=== PATIENT | male | born 1945 | race Caucasian/White ===

== ENCOUNTER 2016-09-03 13:25 | Emergency (ER) | payer MEDICARE, OTHER ==
[~2016-09-03 13:25] MED LIST: ACET325C PO; BISA10SU61 RC; CHLO25CA10 PO; CLIN-78 PO; DILT180C66 PO; DOCU-41 PO; FAMO20T PO; FENTANYL 12 MCG/HR TRANSDERM; FOLI1TAB18 PO; HYDR-4003 PO; HYDR-656 PO; MAGN400O4 PO; MULT-666 PO; NICO1PAT5 TOPICAL; ONDA-53 PO; ONDA4TAB9 PO; OXYC20TA55 PO; OXYC5CAP4 PO; PHN100C PO; THIA100T64 PO; VANC1PLA9 IV; WARF2.5T82 PO
[2016-09-03 13:40] VITALS: BP 133/95; PULSE 101; RESP 18; O2SAT 99
--- NOTE | 2016-09-03 13:57 | ED.REPORT ---
HPI-Extremity Problem Lower Date of Service Sep 03, 2016 ED Provider: Hang Martinez MD A 70 year old male with a medical history including chronic back pain, COPD, epilepsy, atrial fibrillation on Warfarin, hypertension, and left femoral fracture s/p left hip hemiarthroplasty presents to the ED with left hip pain onset two days ago after a mechanical ground level fall. The patient has ambulated with pain since then but was unable to bear weight today. He denies hitting his head or losing consciousness. En route the patient had stable vital signs and was given 4x Zofran, 5mg Versed, and 100mcg Fentanyl. The patient was in the ED on 08/14/16 with similar symptoms. Nursing Notes Stated Complaint: LEFT HIP PAIN Chief Complaint: Extremity Trauma Nursing Notes Reviewed: Yes Allergies: Coded Allergies: atenolol (Verified Allergy, Unknown, 09/03/16) methadone (Verified Allergy, Unknown, TAKES OXYCODONE/HYDROCODONE/FENTANYL , 09/03/16) aspirin (Verified Adverse Reaction, Unknown, GI, 09/03/16) codeine (Verified Adverse Reaction, Unknown, GI, 09/03/16) Uncoded Allergies: ANTI-INFLAMMATORY AGENTS OPH/OTIC (Allergy, Unknown, 08/21/04) Scheduled ([fentanyl 12mcg/hr]) 1 PATCH TRANSDERM q72 hours Clindamycin (Clindamycin) 300 Mg Capsule 300 MG PO QID Diltiazem ER (Cardizem CD) 180 Mg Cap.er.24h 180 MG PO DAILY Famotidine (Pepcid) 20 Mg Tablet 20 MG PO BID Folic Acid (Folic Acid) 1 Mg Tablet 1 MG PO DAILY Morphine Sulfate ER (MS Contin) 30 Mg Tablet.er 30 MG PO BID Multivitamin (Once Daily) 1 Each Tablet 1 EACH PO DAILY Nicotine 14 mg/24 hr Patch (Nicotine 14 mg/24 hr Patch) 1 Each Patch.td24 1 PATCH TOPICAL Q24H Oxycodone ER (Oxycontin) 20 Mg Tab.er.12h 20 MG PO BID Phenytoin Sodium ER (Dilantin) 100 Mg Capsule 100 MG PO AM Phenytoin Sodium ER (Dilantin) 100 Mg Capsule 300 MG PO HS Thiamine Mononitrate (Vitamin B-1) 100 Mg Tablet 100 MG PO DAILY Vancomycin/0.9 % Sod Chloride (Vanco 1 Gram/250 ml-0.9% NaCl) 1 Gram/250 Ml Plast..bag 1 GM IV BID Warfarin Sodium (Warfarin Sodium) 2.5 Mg Tablet 2.5 MG PO DAILY Scheduled PRN Acetaminophen (Acetaminophen) 325 Mg Capsule 650 MG PO q4 hours PRN PRN For Pain Bisacodyl (Dulcolax Rectal) 10 Mg Supp.rect 10 MG RC DAILY PRN PRN For Constipation Chlordiazepoxide (Chlordiazepoxide) 25 Mg Capsule 25 MG PO Q6H PRN PRN For Anxiety Docusate Sodium (Colace) 100 Mg Capsule 100 MG PO DAILY PRN PRN For Constipation Hydrocodone-Acetaminophen 5-325 mg (Hydrocodone-Acetaminophen 5-325 mg) 1 Each Tablet 1 TABLET PO Q4H PRN PRN For Pain Magnesium Hydroxide (Milk of Magnesia) 400 Mg/5 Ml Oral.susp 400 MG PO DAILY PRN PRN For Constipation Ondansetron (Ondansetron) 4 Mg Tablet 4 MG PO q8 hours PRN PRN For Nausea Ondansetron ODT (Zofran ODT) 4 Mg Tablet 4 MG PO Q4H PRN PRN For Nausea hydrOXYzine Hcl (HydrOXYzine Hcl) 25 Mg Tablet 25 MG PO q4 hours PRN PRN For Spasm oxyCODONE (oxyCODONE) 5 Mg Capsule 5-10 MG PO q3 hours PRN PRN For Pain General Time Seen by MD: 13:56 Chief Complaint Hip injury left Hx Obtained From: Patient Arrived By: Ambulance Onset Occurred: 2 days ago Symptom Duration: Since onset Caused by: Fall on ground Context: Occurred at: Home injury Location: : Hip left Severity: Current: Moderate Severity: Maximum: Moderate Associated with: Reports: Unable to bear weight, Denies: Fever Pertinent Negative: Relieved by nothing Immunizations: Unknown Recent Healthcare: No recent doctor visit Similar Sx Previous: Yes Past Medical History Past Medical History Bowel obstruction Chronic back pain Pancreatitis Epilepsy Diverticulitis Gastroesphageal Reflux Heartburn AFib on Warfarin Hypertension Displaced angulated left femoral neck fracture Reports: COPD Past Surgical History Whipple Surgery Left hip hemiarthroplasty on April 24, 2016 Reports: Appendectomy, Cholecystectomy Reports: Back/neck surgery Smoking History Current Every Day Smoker Social History Alcohol Use: >5 per day Other Social History: Good social support, , Local resident Ambulatory Status Independent Review of Systems Constitutional: Denies: Fever Musculoskeletal: Reports: Joint pain (Left hip) Neurologic: Denies: Change LOC, Headache Complete sys rev & neg: except as marked. Respiratory: Denies: Shortness of breath Cardiovascular: Denies: Chest pain GI: Denies: Abdominal pain, Vomiting Physical Exam Initial Vital Signs Vital Signs (First) Date Time Temp Pulse Resp B/P Pulse Ox O2 Delivery O2 Flow Rate FiO2 09/03/16 13:40 36.6 101 18 133/95 99 Room Air Initial VS: Reviewed Head / Eyes: Atraumatic, Normocephalic ENT: Conjunctiva normal, No scleral icterus Neck: Supple, Full range of motion Skin: Warm, Dry, No cyanosis Neurologic: Alert, Oriented, Nonfocal Psychiatric: Mood/affect normal, Behavior normal, Normal thought content Lower Extremity / Pelvis / MS: Neurologic intact, Vascular intact Right Hip: Positive: Swelling present... (Over greater trochanter laterally), Tenderness present... (Over greater trochanter) Pain with external and internal rotation of left leg Ankle / Foot: Neurologic intact, Vascular intact General/Constitutional: Awake, Alert, No acute distress Interpretation & Diagnostics CT HIP LEFT W/O CONTRAST: IMPRESSION: 1. Extension of the distal prosthetic femoral component through the posterior cortex of the femoral shaft with associated extrusion of bone cement. Findings appear nonacute. 2. Soft tissue swelling associated with the cement within the left vastus lateralis may represent hematoma or associated inflammatory reaction. Dictated by: Poli Dennis M.D. on 09/03/2016 at 15:53 Lab Results Interpretation Result Diagram: 09/03/16 1623 09/03/16 1623 Test 09/03/16 16:23 09/03/16 16:40 White Blood Count 10.1th/mm3 (3.8-10.1) Red Blood Count 3.72mil/mm3 (4.40-5.80) Hemoglobin 9.7g/dL (13.8-17.2) Hematocrit 30.0% (41.0-50.0) Mean Corpuscular Volume 80.6fL (81-100) Mean Corpuscular Hemoglobin 26.1pg (27.0-35.0) Mean Corpuscular Hemoglobin Concent 32.3% (32.0-37.0) Red Cell Distribution Width 19.4% (12.3-15.4) Platelet Count 401bil/L (150-400) Neutrophils (%) (Auto) 72.0% (40-74) Lymphocytes (%) (Auto) 17.3% (14-46) Monocytes (%) (Auto) 9.8% (4-12) Eosinophils (%) (Auto) 0.3% (0-5) Basophils (%) (Auto) 0.2% (0-3) Sodium Level 134mEq/L (134-144) Potassium Level 3.5mEq/L (3.5-5.2) Chloride Level 97mEq/L (97-108) Carbon Dioxide Level 20mmol/L (18-29) Blood Urea Nitrogen 7mg/dL (8-27) Creatinine 0.42mg/dL (0.76-1.27) Estimat Glomerular Filtration Rate 214mL/min (>59) Glucose Level 106mg/dL (60-99) Calcium Level 8.2mg/dL (8.5-10.1) Total Bilirubin 0.7mg/dL (0.0-1.2) Aspartate Amino Transf (AST/SGOT) 17U/L (0-50) Alanine Aminotransferase (ALT/SGPT) 7U/L (0-44) Alkaline Phosphatase 174U/L (25-160) Total Protein 5.8g/dL (6.4-8.4) Albumin 3.2g/dL (3.4-5.0) Prothrombin Time 65.0sec (8.1-12.5) Prothromb Time International Ratio 5.86ratio X-Ray Interpretation Xray Interpretation: IMPRESSION: 1. No definite fracture or subluxation. Dictated by: Poli Dennis M.D. on 09/03/2016 at 15:05 Study Performed: Pelvis with Lateral Left Hip Interpretation / Wet Read by: Interpret - Radiologist Re-Eval/Medical Decision Med Decision/Clinical Course Despite thorough evaluation no fracture or acute injury to the left hip is identified. I am suspicious that given his slightly supratherapeutic INR and recent trauma that he has a deep muscle hematoma. I do not believe we have enough here to justify hospitalization. He has a follow-up appointment set with his orthopedist next already. He requests morphine as the oral pain medication which I have provided. MS Contin 30 mg twice a day #12 tablets. Source of Hx: Old records Re-Evaluation/Progress #1: Time of Eval: 15:13 Patient Status: Condition improved Re-Evaluation/Progress Note: Discussed with patient x-ray results and plan for CT. Re-Evaluation/Progress #2: Time of Eval: 16:22 Patient Status: Condition improved Re-Evaluation/Progress Note: Discussed with patient CT results and plan for labs. His reports concerns about taking care of him at home if he is unable to ambulate. Re-Evaluation/Progress #3: Time of Eval: 17:27 Patient Status: Condition improved Re-Evaluation/Progress Note: Discussed with patient and his diagnosis and plan for discharge. Follow-up and return to the ER instructions given. Patient agrees with plan for care and all questions were addressed. Consultation : Referral / Consult Name: RocioDagoberto DO Consulted With: Orthopedic Call Returned at: 16:20 Senior Military Analyst: Agrees with eval, Agrees with plan Note: Recommends watchful waiting. Counseled Regarding: Diagnosis, Need for follow-up, When/why to return to ED Discharge & Departure Impression: Primary Impression: Contusion of left hip Encounter type: initial encounter Qualified Code: S70.02XA - Contusion of left hip, initial encounter Additional Impression: Supratherapeutic INR Disposition: Home Discharge Condition All VS Reviewed: Yes Condition: Stable Patient Instructions: Contusions in Adults (ED) Additional Instructions: No obvious new acute injury on the CT or x-ray. I believe that you do have a deep muscle bruise and hematoma. Your warfarin level is a little bit too high so do not take any warfarin/Coumadin today tomorrow or Tuesday and resume taking it on Tuesday. Take pain medicine prescribed twice daily until you see the orthopedist on . Follow-up right away for new or worsening symptoms. Referrals: NOPCP (PCP) Inder Garzon Attestation Portions of this note were transcribed by Nargis Mcfarlane. I, Dr. Martinez, personally performed the history, physical exam, and medical decision-making; I reviewed and confirmed the accuracy of the information in the transcribed note. Signed by: Yolanda Milton, 09/03/2016, 17:33 copies to: Inder Garzon Kirk H MD Sep 03, 2016 13:57 NARGIS MCFARLANE Sep 03, 2016 14:03
[2016-09-03] MEDS ORDERED: Ondansetron 2 mg/mL 2 mL Inj IVPUSH PRN (14:10)
[2016-09-03] MEDS ORDERED: HYDROmorphone 1 mg/mL Inj IVPUSH PRN (14:10)
--- NOTE | 2016-09-03 15:06 | DRSVH ---
PROCEDURE: X-RAY PELVIS W/LAT HIP (LT) ([id number]) INDICATIONS: trauma TECHNIQUE: AP pelvis with lateral view of the left hip. COMPARISON: [facility], CR, XR HIP 2VW LT, 08/09/2016, 10:43. [facility], CR, XR PELVIS W LATERAL HIP LT, 07/02/2016, 9:45. FINDINGS: Bones: No definite fracture or dislocation. There is a left total hip prosthesis redemonstrated. N o change in alignment. No new periprosthetic lucencies. There is moderate joint space narrowing med ially in the right hip with subchondral sclerosis. Pelvic ring appears intact. No suspicious bony l esions. Soft tissues: The visualized bowel gas pattern is normal. There are scattered vascular calcificatio ns. IMPRESSION: 1. No definite fracture or subluxation. Dictated by: Poli Dennis M.D. on 09/03/2016 at 15:05 Approved by: Poli Dennis M.D. on 09/03/2016 at 15:05
--- NOTE | 2016-09-03 15:55 | DRSVH ---
PROCEDURE: CT HIP LEFT W/O CONTRAST (94055) INDICATIONS: trauma TECHNIQUE: Noncontrast 3 mm axial sections acquired through the bony pelvis. Additional 3 mm axial sections acq uired through the symptomatic hip joint, with coronal and sagittal reformats. COMPARISON: [facility], CR, XR PELVIS W LATERAL HIP LT, 06/14/2016, 22:55. [facility], CR, XR PELVIS W LATERAL HIP LT, 07/02/2016, 9:45. [facility], CR, XR HIP 2 VW LT, 08/09/2016, 10:43. [facility], CR, XR PELVIS W LATERAL HIP LT, 09/03/2016, 14:37. FINDINGS: Image quality: There is extensive streak artifact associated with patient's left hip prosthesis. Bones: A left total hip prosthesis is redemonstrated. The distal femoral component extends posterior ly through the posterior cortex of the femoral shaft with associated extrusion of bone cement into th e adjacent soft tissue. Elsewhere, no acute fractures or dislocation. A corticated chronic fracture of the left greater trochanter is redemonstrated. The bony pelvis appears intact. There is osteope abdiel. Soft tissues: There is soft tissue swelling associated with the extruded cement within the left vastu s lateralis muscle. Findings may represent an associated hematoma or inflammatory reaction. There i s no free fluid within the visualized bony pelvis. Visualized loops of bowel are normal in caliber. The bladder demonstrates normal wall thickness. IMPRESSION: 1. Extension of the distal prosthetic femoral component through the posterior cortex of the femoral shaft with associated extrusion of bone cement. Findings appear nonacute. 2. Soft tissue swelling associated with the cement within the left vastus lateralis may represent he matoma or associated inflammatory reaction. Dictated by: Poli Dennis M.D. on 09/03/2016 at 15:53 Approved by: Poli Dennis M.D. on 09/03/2016 at 15:53
[2016-09-03 16:37] LABS: BASOPHILS % (AUTO) 0.2 % (0-3); EOSINOPHILS % (AUTO) 0.3 % (0-5); MONOCYTES % (AUTO) 9.8 % (4-12); Mean Corpuscular Hemoglobin 26.1 pg (27.0-35.0); Mean Corpuscular Volume 80.6 fL (81-100); Platelet Count 401 bil/L (150-400)
[2016-09-03 17:23] LABS: INR 5.86 ratio
[2016-09-03] MEDS ORDERED: MS30TCR PO (17:31)
[2016-09-03 18:06] VITALS: BP 140/68; PULSE 103; RESP 18; O2SAT 97
== END 2016-09-03 18:07 | disposition home or self-care (01) ==
LOC: SED 13:25 → EDUNIT# 13:25 → EDBD 13:25 → SED 18:07
DX: S70.02XA Contusion of left hip, initial encounter (principal); W18.30XA Fall on same level, unspecified, initial encounter; Y92.009 Unspecified place in unspecified non-institutional (private) residence as the place of occurrence of the external cause; Y93.89 Activity, other specified; Y99.8 Other external cause status; R79.1 Abnormal coagulation profile; M54.9 Dorsalgia, unspecified; G89.29 Other chronic pain; J44.9 Chronic obstructive pulmonary disease, unspecified; G40.909 Epilepsy, unspecified, not intractable, without status epilepticus; I48.91 Unspecified atrial fibrillation; I10 Essential (primary) hypertension; K21.9 Gastro-esophageal reflux disease without esophagitis; F17.200 Nicotine dependence, unspecified, uncomplicated; Z79.01 Long term (current) use of anticoagulants; Z87.828 Personal history of other (healed) physical injury and trauma; Z96.642 Presence of left artificial hip joint; Z88.8 Allergy status to other drugs, medicaments and biological substances; Z88.5 Allergy status to narcotic agent; Z88.6 Allergy status to analgesic agent
CPT/HCPCS: 36415; 73501; 73700; 80053; 85025; 85610; 96374; 96375; 99285; J1170; J2405

== ENCOUNTER 2016-11-11 18:07 | Inpatient (IN) | payer MEDICARE, OTHER ==
[~2016-11-11] VITALS: Ht 175.3 cm; Wt 91.8 kg
[~2016-11-11 18:07] MED LIST changes: +MS30TCR PO
[2016-11-11 18:12] VITALS: BP 143/102; PULSE 87; RESP 24; O2SAT 99
--- NOTE | 2016-11-11 18:13 | ED.REPORT ---
HPI-General Illness Date of Service Nov 11, 2016 ED Provider: Shae Robledo MD A 70 year old male with a history of pancreatitis, A-fib, COPD, chronic anemia, epilepsy, diverticulitis and hypertension presents to the ED via EMS seeking detox from EtOH. He reports drinking heavily for the past 5 years. Ex- reports that he is drunk every morning and drinks through the day. Associated symptoms include bladder and bowel incontinence, intermittent vomiting, headache , visual hallucinations of "blue stars", auditory hallucinations and tactile hallucinations of "bugs crawling over him". He has been taking Ondansetron for the past 4 months for his nausea. Today, the patient drank 2 [employer] Hard and one 24 oz. Patient was sober for the past 33 years and reportedly started drinking 2 years after his second . Patient recently stopped taking Warfarin. Patient was seen in the ED on 09/03 after a GLF and was discharged in good condition with a hip contusion. Nursing Notes Stated Complaint: SOB, DETOXING FROM ALCOHOL Chief Complaint: Substance Abuse Nursing Notes Reviewed: Yes Allergies: Coded Allergies: atenolol (Verified Allergy, Unknown, 11/11/16) methadone (Verified Allergy, Unknown, TAKES OXYCODONE/HYDROCODONE/FENTANYL , 11/11/16) aspirin (Verified Adverse Reaction, Unknown, GI, 11/11/16) codeine (Verified Adverse Reaction, Unknown, GI, 11/11/16) Uncoded Allergies: ANTI-INFLAMMATORY AGENTS OPH/OTIC (Allergy, Unknown, 08/21/04) Scheduled Diltiazem ER (Cardizem CD) 180 Mg Cap.er.24h 180 MG PO DAILY Famotidine (Pepcid) 20 Mg Tablet 20 MG PO BID Folic Acid (Folic Acid) 1 Mg Tablet 1 MG PO DAILY Multivitamin (Once Daily) 1 Each Tablet 1 EACH PO DAILY Nicotine 21 mg/24 hr Patch (Nicotine 21 mg/24 hr Patch) 1 Each Patch.dysq 1 PATCH TRANSDERM DAILY Phenytoin Sodium ER (Dilantin) 100 Mg Capsule 100 MG PO AM Phenytoin Sodium ER (Dilantin) 100 Mg Capsule 300 MG PO HS Thiamine Mononitrate (Vitamin B-1) 100 Mg Tablet 100 MG PO DAILY Scheduled PRN Acetaminophen (Acetaminophen) 325 Mg Capsule 650 MG PO q4 hours PRN PRN For Pain Albuterol HFA (Proair HFA) 8.5 Gm Hfa.aer.ad 2 PUFFS INHALATION Q4H PRN PRN For Shortness of Breath Bisacodyl (Dulcolax Rectal) 10 Mg Supp.rect 10 MG RC DAILY PRN PRN For Constipation Docusate Sodium (Colace) 100 Mg Capsule 100 MG PO DAILY PRN PRN For Constipation Ibuprofen (Ibuprofen) 600 Mg Tablet 600 MG PO BID PRN PRN For Pain Magnesium Hydroxide (Milk of Magnesia) 400 Mg/5 Ml Oral.susp 400 MG PO DAILY PRN PRN For Constipation Ondansetron ODT (Zofran ODT) 4 Mg Tablet 4 MG PO Q4H PRN PRN For Nausea General Time Seen by MD: 17:58 Chief Complaint Other (Substance Abuse) Hx Obtained From: Patient, Spouse (Ex-) Arrived By: Ambulance Sudden in Onset?: No Onset Occurred: Onset unknown Context of Onset: EtOH use Symptom Duration: Since onset Additional Notes: Visual, auditory and tactile hallucinations Incontinence Pertinent Negative: Pt denies other symptoms Recent Healthcare: No recent hospitalization, Recent doctor visit Past Medical History Past Medical History Bowel obstruction Chronic back pain Pancreatitis Epilepsy Diverticulitis Gastroesphageal Reflux Heartburn AFib on Warfarin Hypertension Displaced angulated left femoral neck fracture Reports: COPD Past Surgical History Whipple Surgery Left hip hemiarthroplasty on April 24, 2016 Reports: Appendectomy, Cholecystectomy Reports: Back/neck surgery Smoking History Current Every Day Smoker (2 packs per day) Social History Alcohol Use: >5 per day Other Social History: Good social support, , Local resident Ambulatory Status Independent Review of Systems Full Review of Systems Constitutional: Denies: Fever Respiratory: Denies: Shortness of breath Cardiovascular: Denies: Chest pain GI: Reports: Vomiting, Denies: Abdominal pain Male: Reports Incontinence Neurologic: Reports: Headache, Denies: Change LOC Psychiatric: Reports: Hallucinations, auditory, Hallucinations, visual, Stress ( 7 years ago) Complete sys rev & neg: except as marked. Physical Exam Vital Signs Vital Signs Date Time Temp Pulse Resp B/P Pulse Ox O2 Delivery O2 Flow Rate FiO2 11/11/16 18:39 86 18 149/116 98 Room Air 11/11/16 18:12 37.0 87 24 143/102 99 Room Air Initial VS: Reviewed Neck: Supple, Non-tender, Full range of motion General/Constitutional: Awake, Alert Appearance / Presentation: Positive: Intoxicated GENERAL: CWAL score = 38 Disheveled appearance Head / Eyes: Atraumatic, Normocephalic Respiratory / Chest: Atraumatic, Breath sounds NL, Breath sounds = bilat, No respiratory distress Cardiovascular: Heart rate NL, Heart sounds NL, No murmurs Heart Rate / Rhythm: Positive: Irreg irregular rhythm Lower Ext Edema: Positive: Bilateral 2+ CARDIO: Clubbing fingers Abdomen: Atraumatic, Soft, BS normoactive Organomegaly / Mass / Hernia: Positive: Hepatomegaly Color / Condition: Positive: Erythema localized (Carroll erythema ) SKIN: spider hemangiomas Speech: Positive: Slurred NERUO: CWAL score 38 Interpretation & Diagnostics Lab Results Interpretation Result Diagram: 11/11/16 1808 Test 11/11/16 18:08 11/11/16 19:41 White Blood Count 8.5th/mm3 (3.8-10.1) Red Blood Count 3.73mil/mm3 (4.40-5.80) Hemoglobin 9.9g/dL (13.8-17.2) Hematocrit 31.1% (41.0-50.0) Mean Corpuscular Volume 83.4fL (81-100) Mean Corpuscular Hemoglobin 26.5pg (27.0-35.0) Mean Corpuscular Hemoglobin Concent 31.8% (32.0-37.0) Red Cell Distribution Width 16.0% (12.3-15.4) Platelet Count 158bil/L (150-400) Neutrophils (%) (Auto) 61.8% (40-74) Lymphocytes (%) (Auto) 30.0% (14-46) Monocytes (%) (Auto) 6.8% (4-12) Eosinophils (%) (Auto) 0.8% (0-5) Basophils (%) (Auto) 0.5% (0-3) Hold Purple Top Tube Received (Received) Prothrombin Time 10.0sec (8.1-12.5) Prothromb Time International Ratio 0.94ratio Activated Partial Thromboplast Time 27.1sec (22.8-33.0) Hold Blue Top Tube Received (Received) Phosphorus Level 2.8mg/dL (2.5-4.9) Magnesium Level 1.9mg/dL (1.6-2.6) Hold Red Top Tube Received (Received) Hold [place] Top Tube Received (Received) Alcohols 171mg/dL (0-10) Hold Urine Received (Received) ECG Interpretation ECG Interpretation: Sinus Rhythm Rate 79 No ischemia Time: 19:03 Interpreted by: ED physician Normal ECG Interpretation: No change from prior ECGs (06/14/16) Re-Eval/Medical Decision Time of Eval: 20:36 Patient Status: Condition improved Re-Evaluation/Progress Note: Patient is rechecked. He is informed of his lab results and diagnosis. All of the patient's questions are adressed. He understands and agrees with the treatment plan to admit. Consultation : Referral / Consult Name: Roque Rico MD Consulted With: Hospitalist Call Returned at: 20:36 [employer]: Will see patient, Agrees with eval, Agrees with plan, Accepts admit Counseled Regarding: Diagnosis, Lab results, Need for admission Discharge & Departure Primary Impression: Delirium tremens Disposition: ADMITTED TO HOSPITAL Discharge Condition All VS Reviewed: Yes Condition: Stable Referrals: NOPCP (PCP) HELEN MAC Attestation Portions of this note were transcribed by Janell Lora. I, Dr. Robledo personally performed the history, physical exam and medical decision-making; I reviewed and confirmed the accuracy of the information in the transcribed note. Signed by: Yolanda Isaac, 11/11/162049. Shae Robledo MD Nov 11, 2016 18:12 JANELL LORA Nov 11, 2016 18:33
[2016-11-11 18:39] VITALS: BP 149/116; PULSE 86; RESP 18; O2SAT 98
[2016-11-11] MEDS ORDERED: Thiamine Inj 100 MG, Folic Acid Inj 1 MG, Magnesium Sulfate 50% Inj 2 GM, Multivitamins... IV ONE ×10 (18:50→20:50)
[2016-11-11 18:58] LABS: BASOPHILS % (AUTO) 0.5 % (0-3); EOSINOPHILS % (AUTO) 0.8 % (0-5); MONOCYTES % (AUTO) 6.8 % (4-12); Mean Corpuscular Hemoglobin 26.5 pg (27.0-35.0); Mean Corpuscular Volume 83.4 fL (81-100); NEUTROPHILS % (AUTO) 61.8 % (40-74); Platelet Count 158 bil/L (150-400)
[2016-11-11 19:05] LABS: INR 0.94 ratio
[2016-11-11 19:09] LABS: Magnesium 1.9 mg/dL (1.6-2.6); Phosphorus 2.8 mg/dL (2.5-4.9)
[2016-11-11] MEDS ORDERED: NICO1PAT16 TRANSDERM (19:45)
[2016-11-11] MEDS ORDERED: IBUP-1827 PO (19:47)
[2016-11-11] MEDS ORDERED: ALBU8.5H2 INHALATION (19:47)
[2016-11-11] MEDS ORDERED: Polyethylene Glycol (PEG) 17 Gm Powder PO PRN (20:50)
[2016-11-11] MEDS ORDERED: Alum-Mag Hydrox-Simeth 30 mL Suspension PO PRN (20:50)
[2016-11-11] MEDS ORDERED: Ondansetron 2 mg/mL 2 mL Inj IVPUSH PRN (20:50)
[2016-11-11 21:43] VITALS: BP 130/90; PULSE 85; RESP 13; O2SAT 97
--- NOTE | 2016-11-11 22:21 | PCM.HPMED ---
Subjective Date of Service Nov 11, 2016 Primary Provider: Admitting Physician: Primary Care Physician: Anuj,ANNA Residency Attending Physician: Admit Status: From the Emergency Department, Full Admit, [facility] Telemetry Chief Complaint: Requesting Detox History of Present Illness: Kermit Quintana is a 70 year old male with Paroxysmal A fibrillation, Seizure disorder, Alcohol and Nicotine dependence and hypertension presents to [facility] emergency department via EMS seeking detox from Alcohol Friend reports that he is drunk every morning and drinks through the day. Associated symptoms include bladder and bowel incontinence, intermittent vomiting, headache, visual hallucinations of "blue stars", auditory hallucinations and tactile hallucinations of "bugs crawling over him". Today, the patient drank 2 Armani's Hard and one 24 oz. around 2 PM. Patient accompanied by his ex who supports him. Patient stated he needed to do something about his drinking now otherwise he will He has been taking Ondansetron for the past 4 months for his nausea. Patient was sober for the past 33 years and reportedly started drinking 2 years after his . He reports drinking heavily for the past 5 years. Patient recently stopped taking Warfarin which he takes for Atrial fibrillation as blood work showed INR >10 but no bleeding noted. Patient was seen in the ED on 09/03 after a GLF and was discharged in good condition with a hip contusion. He has Seizure disorder and also smokes on a daily basis. He has questionable compliance with his other medications that includes Dilantin and Cardizem. Case discussed with Dr Lindquist, plan to start CIWA protocol and admission. pallet rectifier will be consulting for placement. Heart rate controlled. Review of Systems: Pertinent positives as noted in HPI. All other systems were reviewed and are negative Allergies Coded Allergies: atenolol (Verified Allergy, Unknown, 11/11/16) methadone (Verified Allergy, Unknown, TAKES OXYCODONE/HYDROCODONE/FENTANYL , 11/11/16) aspirin (Verified Adverse Reaction, Unknown, GI, 11/11/16) codeine (Verified Adverse Reaction, Unknown, GI, 11/11/16) Uncoded Allergies: ANTI-INFLAMMATORY AGENTS OPH/OTIC (Allergy, Unknown, 08/21/04) Home Medications From [facility], not yet confirmed Kermit Quintana Jr [id number] 1945 10/05/2016 08:30 AM 08/26 Cardizem CD 180 mg capsule,extended release take 1 capsule by oral route every day Dilantin Extended 100 mg capsule take 1 capsule by oral route in the morning and 3 capsules by oral route at bedtime every day famotidine 20 mg tablet take 1 tablet by oral route 2 times every day folic acid 1 mg tablet take 1 tablet by oral route every day melatonin 1 mg tablet Take 0.5 mg every evening for sleep nicotine 14 mg/24 hr daily transdermal patch apply 1 patch by transdermal route every day ondansetron 4 mg disintegrating tablet take 1 tablet by oral route every [address] on top of the tongue where they will dissolve, then swallow oxycodone-acetaminophen 5 mg-325 mg tablet take 1 tablet by oral route every 8 hours as needed warfarin 4 mg tablet take 1 1/2 tablets (6mg) daily except take one tablet (4mg ) on Tuesdays PMH Hypertension Alcohol abuse Paroxysmal atrial fibrillation Closed left hip fracture Seizure disorder Pancreatitis with Pancreatic cancer s/p Whipple procedure. He was on hospice but then survived since then . Surgical History Left displaced intracapsular femoral neck fracture s/p drain of left hip abscess Appendectomy Cholecystectomy Whipple procedure Family History Hypertension in several family members Social History Hx Alcohol Use: Yes (drinks all day long large amounts ) Hx Substance Use: No Hx Tobacco Use: Yes (1/2 pack a day) Smoking Status: Current Every Day Smoker (2 packs per day) Living Arrangement: with Family (lives with his ex ) Exam Vital Signs Vital Sign - Last Date Time Temp Pulse Resp B/P Pulse Ox O2 Delivery O2 Flow Rate FiO2 11/11/16 18:39 86 18 149/116 98 Room Air 11/11/16 18:12 37.0 Exam General: Alert, Oriented X3, Cooperative, No acute Distress Eyes: PERRLA, Scleral Anicteric Mouth: Mouth Normal, Mucous Membranes Moist/[place] Neck: Supple, no Thyromegaly, trachea central. Chest & Lungs: Clear to auscultation & percussion, No adventitious breath sounds, no crackles, no wheeze Cardiovascular: Normal S1, Normal S2, No Murmurs/Rubs/Gallops, Regular Rate/ Rhythm, (No JVD, no peripheral edema) Pulses: Radial (present and equal), Dorsalis Pedi (present and equal) Abdomen: Soft, Non-tender, Non-distended, Normoactive bowel tones. Musculoskeletal: Unremarkable. Normal range of motion, no swollen or erythematous joints Extremities: No edema, no cyanosis, no clubbing. Skin: several bruises of arms Neurological: Grossly neurologically intact, has generalized weakness, Normal Speech, Sensation Intact Lymphatic: Lymph nodes Cervical and Axillary not palpable Lab and Diagnostics Labs Laboratory Tests Test 11/11/16 18:08 11/11/16 19:41 11/11/16 21:05 White Blood Count 8.5th/mm3 (3.8-10.1) Red Blood Count 3.73mil/mm3 (4.40-5.80) Hemoglobin 9.9g/dL (13.8-17.2) Hematocrit 31.1% (41.0-50.0) Mean Corpuscular Volume 83.4fL (81-100) Mean Corpuscular Hemoglobin 26.5pg (27.0-35.0) Mean Corpuscular Hemoglobin Concent 31.8% (32.0-37.0) Red Cell Distribution Width 16.0% (12.3-15.4) Platelet Count 158bil/L (150-400) Neutrophils (%) (Auto) 61.8% (40-74) Lymphocytes (%) (Auto) 30.0% (14-46) Monocytes (%) (Auto) 6.8% (4-12) Eosinophils (%) (Auto) 0.8% (0-5) Basophils (%) (Auto) 0.5% (0-3) Hold Purple Top Tube Received (Received) Prothrombin Time 10.0sec (8.1-12.5) Prothromb Time International Ratio 0.94ratio Activated Partial Thromboplast Time 27.1sec (22.8-33.0) Hold Blue Top Tube Received (Received) Sodium Level 135mEq/L (134-144) Potassium Level 3.7mEq/L (3.5-5.2) Chloride Level 98mEq/L (97-108) Carbon Dioxide Level 21mmol/L (18-29) Blood Urea Nitrogen 6mg/dL (8-27) Creatinine 0.61mg/dL (0.76-1.27) Estimat Glomerular Filtration Rate 139mL/min (>59) Glucose Level 85mg/dL (60-99) Calcium Level 7.8mg/dL (8.5-10.1) Phosphorus Level 2.8mg/dL (2.5-4.9) Magnesium Level 1.9mg/dL (1.6-2.6) Total Bilirubin 0.4mg/dL (0.0-1.2) Aspartate Amino Transf (AST/SGOT) 133U/L (0-50) Alanine Aminotransferase (ALT/SGPT) 50U/L (0-44) Alkaline Phosphatase 199U/L (25-160) Total Protein 5.7g/dL (6.4-8.4) Albumin 3.4g/dL (3.4-5.0) Hold Red Top Tube Received (Received) Hold Napoleon Top Tube Received (Received) Alcohols 171mg/dL (0-10) Hold Urine Received (Received) Ammonia 43ug/dL (18-53) Result Diagram: 11/11/161807 Assessment & Plan Kermit Quintana is a 70 year old male with Paroxysmal A fibrillation, Seizure disorder, Alcohol and Nicotine dependence and hypertension presents to [facility] emergency department via EMS seeking detox from Alcohol 1. Alcohol Abuse with withdrawal syndrome. Present on admission Patient has not been to detox before. Anticipate severe alcohol withdrawal given amount alcohol and duration of his alcohol abuse. Currently exhibiting hallucinations and delirium tremors. - nothing by mouth for now, may need nutrition consult to monitor for refeeding syndrome - continuing CIWA protocol - supplement replacement with Banana bag - POLITICAL CARTOONIST consulted for placement in detox facility - consider Precedex drip if symptoms escalates 2. Elevated transaminitis due to Alcoholic Hepatitis. Present on admission Typical pattern for Alcoholic hepatitis with AST > ALT with around 2:1 ratio. - counseled patient in the importance of abstinence from alcohol to halt progression to liver failure - consider Hepatitis C screening as patient is a baby boomer 3. Chronic atrial fibrillation. CHADS2 score 1 (Stroke rate 2.8%/yr). Patient having alot of falls recently. No prior strokes reported. - monitor on telemetry - continue Cardizem 180 mg daily for rate control - I agree to holding Coumadin due to fall and bleeding risks 4. Seizure disorder No recent seizure episodes. Unclear if seizure is related to alcohol withdrawal - continue Dilantin daily - no need to obtain Dilantin levels 5. Nicotine dependence Cessation discussed and encouraged - Nicotine patch upon patients request - Acetaminophen as needed for mild pain/fever/headache - Bowel regimen as needed - Antiemetic as needed Patient admitted under inpatient status with expected length of stay > 2 midnights for severity of present symptoms, complexities of treatment plan and risk for adverse event . Resuscitation Status: CPR: Attempt Resuscitation Roque Rico MD Nov 11, 2016 20:51
[2016-11-11] MEDS: 0.9% Sodium Chloride 1,000 ML IV SCH (23:30)
[2016-11-12] VITALS (9 sets, daily range): BP systolic 105–161; BP diastolic 76–101; PULSE 69–117; RESP 14–22; O2SAT 95–100
--- NOTE | 2016-11-12 00:25 | NUR ---
Admit note Admitted to CCU 2019 from ER at 2145. Pt complained of seeing and feeling bugs crawling through him. Ciwa 26. Valium 10mg given x3 with pt request for each dose. Banana bag infusing from ER. Voiding per urinal. Tele sinus rhythm with PVCs. Ex Lon provided history and states she is his career discovery teacher. Pt states OK to release information to Lon over the phone. Pt asleep after 3rd dose valium. Arouses easily then falls asleep.
[2016-11-12] MEDS: Heparin 5,000 Unit/mL Inj SUBQ SCH ×3 (02:51→16:47)
--- NOTE | 2016-11-12 04:37 | NUR ---
Desaturation, 0300 Desaturated to 82% on room air with associated very moist cough, respiratory rate up to 25 and blood pressures up jto 150s/100s. Placed on 4l/nc with sats gradually improving to mid 90s. IVF decreased to TKO. Treated CIWA 22-[address] Rico notified. Chest xray completed. Resting quietly at this time.
[2016-11-12] MEDS: 0.9% Sodium Chloride 1,000 ML IV SCH ×2 (06:47→16:48)
[2016-11-12] MEDS: Multivit-Miner-Folic Acid-Iron Tablet PO SCH (07:55)
[2016-11-12] MEDS ORDERED: Albuterol 2.5 mg/3 mL Inhalation Solution NEB PRN (09:15)
[2016-11-12] MEDS ORDERED: Magnesium Hydroxide 355 mL Oral Suspension PO PRN (09:15)
[2016-11-12] MEDS ORDERED: Furosemide 10 mg/mL 2 mL Inj IV ONE (09:20)
[2016-11-12] MEDS ORDERED: HYDR-4003 PO (09:30)
[2016-11-12] MEDS ORDERED: MS30TCR PO (09:30)
--- NOTE | 2016-11-12 09:41 | DRSVH ---
PROCEDURE: X-RAY CHEST ONE VIEW, PORTABLE ([id number]) INDICATIONS: respiratory failure TECHNIQUE: One view of the chest was acquired. COMPARISON: None. FINDINGS: Surgical changes and devices: None. Lungs and pleura: No pleural effusions or pneumothorax. Lungs are clear. Mediastinum: Mediastinal contours appear normal. Heart size is normal. Bones and chest wall: No suspicious bony lesions. Overlying soft tissues appear unremarkable. IMPRESSION: No acute cardiopulmonary disease. Dictated by: Natanael Ritchie [facility] Interpreted: Mikki Crump MD on 11/12/2016 at 9:40 Transcribed by: MIKY on 11/12/2016 at 9:40 Approved by: Mikki Crump MD, PhD on 11/12/2016 at 17:06
[2016-11-12] MEDS: Morphine ER 30 mg (MS Contin) Tablet PO SCH ×2 (10:23→20:05)
[2016-11-12] MEDS: Diltiazem CD 180 mg ER24 Capsule PO SCH (11:33)
--- NOTE | 2016-11-12 15:29 | PCM.PNMED ---
Subjective Date of Service Nov 12, 2016 Subjective Patient is better this morning. He is alert and answer questions appropriately. He is concerned that we did not start his long-acting opiates since admission. Exam Vital Signs Vital Sign - Last Date Time Temp Pulse Resp B/P Pulse Ox O2 Delivery O2 Flow Rate FiO2 11/12/16 11:56 36.4 117 19 124/95 96 Nasal Cannula 4.00 Intake and Output 11/11/16 11/11/16 11/12/16 Cumulative From/Thru 14:59 22:59 06:59 11/11/16 18:12 - 11/12/16 05:54 Intake Total 909 ml 909 ml Output Total 900 ml 900 ml Balance 9 ml 9 ml Intake IV Total 909 ml 909 ml Output Urine Total 900 ml 900 ml Exam Constitutional: Middle-aged male in no acute distress Head: Normocephalic atraumatic Chest: Clear to auscultation Cor: Regular rate and rhythm S1-S2 Abdomen: Soft nontender bowel sounds present Extremity exam no pedal edema Neuro: Alert and oriented 3, motor strength is intact bilaterally Psych: Patient does appear slightly anxious but not tremulous Skin: No rashes IVs and Medications Medications Reviewed: Medications were reviewed in detail Lab and Diagnostics Laboratory Tests 72 Hours Test 11/11/16 18:08 11/11/16 19:41 11/11/16 21:05 11/12/16 08:30 White Blood Count 8.5th/mm3 (3.8-10.1) Red Blood Count 3.73mil/mm3 (4.40-5.80) Hemoglobin 9.9g/dL (13.8-17.2) Hematocrit 31.1% (41.0-50.0) Mean Corpuscular Volume 83.4fL (81-100) Mean Corpuscular Hemoglobin 26.5pg (27.0-35.0) Mean Corpuscular Hemoglobin Concent 31.8% (32.0-37.0) Red Cell Distribution Width 16.0% (12.3-15.4) Platelet Count 158bil/L (150-400) Neutrophils (%) (Auto) 61.8% (40-74) Lymphocytes (%) (Auto) 30.0% (14-46) Monocytes (%) (Auto) 6.8% (4-12) Eosinophils (%) (Auto) 0.8% (0-5) Basophils (%) (Auto) 0.5% (0-3) Hold Purple Top Tube Received (Received) Prothrombin Time 10.0sec (8.1-12.5) Prothromb Time International Ratio 0.94ratio Activated Partial Thromboplast Time 27.1sec (22.8-33.0) Hold Blue Top Tube Received (Received) Sodium Level 135mEq/L (134-144) Potassium Level 3.7mEq/L (3.5-5.2) Chloride Level 98mEq/L (97-108) Carbon Dioxide Level 21mmol/L (18-29) Blood Urea Nitrogen 6mg/dL (8-27) Creatinine 0.61mg/dL (0.76-1.27) Estimat Glomerular Filtration Rate 139mL/min (>59) Glucose Level 85mg/dL (60-99) Calcium Level 7.8mg/dL (8.5-10.1) Phosphorus Level 2.8mg/dL (2.5-4.9) Magnesium Level 1.9mg/dL (1.6-2.6) Total Bilirubin 0.4mg/dL (0.0-1.2) Aspartate Amino Transf (AST/SGOT) 133U/L (0-50) Alanine Aminotransferase (ALT/SGPT) 50U/L (0-44) Alkaline Phosphatase 199U/L (25-160) Total Protein 5.7g/dL (6.4-8.4) Albumin 3.4g/dL (3.4-5.0) Hold Red Top Tube Received (Received) Hold Mandan Top Tube Received (Received) Alcohols 171mg/dL (0-10) Hold Urine Received (Received) Ammonia 43ug/dL (18-53) Urine Opiates Screen Negative Urine Methadone Screen Negative Urine Barbiturates Screen Negative Urine Amphetamines Screen Negative Urine Benzodiazepines Screen Positive Urine Cocaine Metabolite Screen Negative Urine Cannabinoids Screen Negative Result Diagram: 11/11/16180711/11/161807 X-Rays, CTs and MRIs Patient Name: KERMIT QUINTANA JR MR#: [id number] [facility] Ordering Phys: Roque Rico MD Date of Service: 11/12/16 0356 Caution: Report not yet finalized and possibly incomplete! PROCEDURE: X-RAY CHEST ONE VIEW, PORTABLE ([id number]) INDICATIONS: respiratory failure TECHNIQUE: One view of the chest was acquired. COMPARISON: None. FINDINGS: Surgical changes and devices: None. Lungs and pleura: No pleural effusions or pneumothorax. Lungs are clear. Mediastinum: Mediastinal contours appear normal. Heart size is normal. Bones and chest wall: No suspicious bony lesions. Overlying soft tissues appear unremarkable. IMPRESSION: No acute cardiopulmonary disease. Dictated by: Natanael Ritchie [facility] Interpreted: Mikki Crump MD on 11/12/2016 at 9:40 Transcribed by: MIKY on 11/12/2016 at 9:40 Assessment & Plan Kermit Quintana is a 70 year old male with Paroxysmal A fibrillation, Seizure disorder, Alcohol and Nicotine dependence and hypertension presents to [facility] emergency department via EMS seeking detox from Alcohol 1. Alcohol Abuse with withdrawal syndrome. Present on admission Patient has not been to detox before. Anticipate severe alcohol withdrawal given amount alcohol and duration of his alcohol abuse. Currently exhibiting hallucinations and delirium tremors. - Initiate clear liquid diet - continuing CIWA protocol - supplement replacement with Banana bag - PIPE BENDER consulted for placement in detox facility - consider Precedex drip if symptoms escalates 2. Elevated transaminitis due to Alcoholic Hepatitis. Present on admission Typical pattern for Alcoholic hepatitis with AST > ALT with around 2:1 ratio. - counseled patient in the importance of abstinence from alcohol to halt progression to liver failure -Avoid hepatotoxic medications 3. Chronic atrial fibrillation. CHADS2 score 1 (Stroke rate 2.8%/yr). Patient having alot of falls recently. No prior strokes reported. - monitor on telemetry - continue Cardizem 180 mg daily for rate control - I agree to holding Coumadin due to fall and bleeding risks 4. Seizure disorder No recent seizure episodes. Unclear if seizure is related to alcohol withdrawal - continue Dilantin daily - no need to obtain Dilantin levels # Opiate drug dependence,Chronic, present on admission Will place patient back on his usual home medication regimen 5. Nicotine dependence Cessation discussed and encouraged - Nicotine patch upon patients request - Bowel regimen as needed - Antiemetic as needed Patient admitted under inpatient status with expected length of stay > 2 midnights for severity of present symptoms, complexities of treatment plan and risk for adverse event . Resuscitation Status: CPR: Attempt Resuscitation Time spent 30 minutes Kellen Rondon MD 24, 2017 15:29
[2016-11-12] MEDS ORDERED: chlordiazePOXIDE 25 mg Capsule PO PRN (15:50)
--- NOTE | 2016-11-12 17:05 | NUR ---
Social Work: Initial Assessment D: Per EMR review, pt is a 70 year old male admitted for DT's and ETOH withdrawls. Pt is Medicare with [employer]; pt has no LTC or VA benefits. PCP is through [facility] residency clinic. NOK is Lon Oleary, s/o. Advanced directives not completed- information provided. Readmit score is moderate, 3/8. INTERNET SALESPERSON met with pt at bedside with family present. Sw role and contact info provided. See initial assessment. Pt lives in a trailer in [place]. Pt uses a walker and cane at baseline but is I with ADLS. Pt does not drive. Pt has a history at [facility] and has had HH but cannot remember which company. Pt and family anticipate pt returning home when medically stable. INTERNET SALESPERSON discussed CD resources with the pt including the CDP bedside assessment offered through [facility]. Pt is agreeable to this and signed consent. INTERNET SALESPERSON provided referral to Yuki with [employer]. She will attempt to see the pt tonight. A: Pt who is I at baseline. P: Anticipate pt to d/c home when medically stable; CDP to see pt at bedside prior to d/c for CD assessment. INTERNET SALESPERSON to continue to follow for discharge needs. ONEL Brock Addendum: 11/12/16 at 1739 by MARCELINO BOWIE SS Amended: Links added.
--- NOTE | 2016-11-12 18:30 | NUR ---
CIWA & Valium Starting the day I administered 10mg Valium Q1 hour for CIWA's 12-16. Around 1500 Pt started to hallucinate more and becoming agitated and restless with a CIWA at 24. Started to administer Valium 10mg Q 30 minutes to 1 hour. PRN Librium given as well. At 1700 with last dose Pt resting comfortably till 1815 where he then started to try to crawl out of the bed due to him wetting himself, complete bed change. Pt still hallucinating and mumbling but starting to get irritated and asking for both Valium and a pain pill. Administered 10mg of Valium. Pt in and out of sleeping and restlessness changing Q15 minutes. 2L NC applied due to O2 sats low in the 90's while sleeping, sats came up to 100%.
[2016-11-12] MEDS: Phenytoin 100 mg ER Capsule PO SCH (20:05)
[2016-11-13] VITALS (8 sets, daily range): BP systolic 100–146; BP diastolic 74–92; PULSE 73–96; RESP 11–21; O2SAT 96–99
[2016-11-13] MEDS: Heparin 5,000 Unit/mL Inj SUBQ SCH ×3 (00:59→16:25)
[2016-11-13] MEDS: 0.9% Sodium Chloride 1,000 ML IV SCH ×2 (04:17→14:26)
--- NOTE | 2016-11-13 05:15 | NUR ---
CIWA/Quinteros Pt CIWA has been 10-16 overnight, requiring valium dosing every 3-4 hours. Pt is sleepy/sedate most of shift. Mumbled speech, difficult to tell orientation, but repeatedly asks the day. Pt brief dry all night, unable to urinate in urinal when prompted. Bladder scan showed 689ml. paged. Orders received for quinteros. Quinteros placed at 0500. Pt had minimal resistance but was reminded to relax and deep breath. Quinteros then continued in without resistance and balloon inflated with 10cc. quinteros draining yellow urine to gravity at this time.
[2016-11-13 05:23] LABS: BASOPHILS % (AUTO) 0.2 % (0-3); EOSINOPHILS % (AUTO) 1.2 % (0-5); MONOCYTES % (AUTO) 6.3 % (4-12); Mean Corpuscular Hemoglobin 26.3 pg (27.0-35.0); Mean Corpuscular Volume 85.7 fL (81-100); NEUTROPHILS % (AUTO) 61.4 % (40-74); Platelet Count 98 bil/L (150-400)
[2016-11-13] MEDS: Diltiazem CD 180 mg ER24 Capsule PO SCH (07:40)
[2016-11-13] MEDS: Multivit-Miner-Folic Acid-Iron Tablet PO SCH (07:41)
[2016-11-13] MEDS: Morphine ER 30 mg (MS Contin) Tablet PO SCH ×2 (07:45→19:59)
[2016-11-13] MEDS: Phenytoin 100 mg ER Capsule PO SCH ×2 (09:12→20:00)
--- NOTE | 2016-11-13 10:00 | NUR ---
Potassium K=3.3 this morning. MD made aware during rounds and will be ordering a replacement.
--- NOTE | 2016-11-13 10:15 | NUR ---
ANDREW Signed Verbal Consent
[2016-11-13] MEDS ORDERED: Potassium Chloride Inj 20 MEQ in Dextrose 5% 250 ML IV ONE (15:45)
[2016-11-13] MEDS: D5 0.45% NaCl + KCl 20 mEq/L 1,000 ML IV SCH (16:16)
--- NOTE | 2016-11-13 17:25 | PCM.PNMED ---
Subjective Date of Service Nov 13, 2016 Subjective 70-year-old man presents with alcoholic intoxication and withdrawal. He is alert and conversant but still encephalopathic. He voices no specific complaints. Exam Vital Signs Vital Sign - Last Date Time Temp Pulse Resp B/P Pulse Ox O2 Delivery O2 Flow Rate FiO2 11/13/16 16:31 36.6 89 21 100/76 99 Nasal Cannula 2.00 Intake and Output 11/12/16 11/12/16 11/13/16 Cumulative From/Thru 15:00 23:00 07:00 11/11/16 18:12 - 11/13/16 05:45 Intake Total 1086 ml 927 ml 2922 ml Output Total 1950 ml 600 ml 3450 ml Balance -864 ml 327 ml -528 ml Intake Oral 350 ml 0 ml 350 ml IV Total 736 ml 927 ml 2572 ml Output Urine Total 1950 ml 600 ml 3450 ml # Voids 1 1 # Bowel Movements 0 0 Exam General: no acute distress HEENT: sclerae anicteric, oral mucosa dry, poor dentition Neck: no JVD Chest: clear to auscultation Cardiac: S1S2, no murmur Abdomen: BS normal, non-tender Extremities: No edema Neuro: A&O, cranial nerves symmetric, motor strength 5/5, no asterixis, minimal tremor IVs and Medications Medications Reviewed: Medications were reviewed in detail Lab and Diagnostics Result Diagram: 11/13/1643411/13/16434 X-Rays, CTs and MRIs PROCEDURE: X-RAY CHEST ONE VIEW, PORTABLE ([id number]) IMPRESSION: No acute cardiopulmonary disease. Dictated by: Natanael Ritchie Abdiaziz Interpreted: Mikki Crump MD on 11/12/2016 at 9:40 Transcribed by: MIKY on 11/12/2016 at 9:40 . Assessment & Plan Kermit Quintana is a 70 year old male with Paroxysmal A fibrillation, Seizure disorder, Alcohol and Nicotine dependence and hypertension presents to [facility] emergency department via EMS seeking detox from Alcohol #. Alcohol Abuse with withdrawal syndrome. Present on admission Patient has not been to detox before. Anticipate severe alcohol withdrawal given amount alcohol and duration of his alcohol abuse. Currently exhibiting hallucinations and delirium tremors. - Advance diet as tolerated - continuing CIWA protocol - supplement replacement with Banana bag - CLINICAL MATERIAL HANDLER consulted for placement in detox facility - consider Precedex drip if symptoms escalates #. Hypokalemia. - Supplement IV until taking by mouth #. Elevated transaminitis due to Alcoholic Hepatitis. Present on admission. Typical pattern for Alcoholic hepatitis with AST > ALT with around 2:1 ratio. Counseled by Cralo regarding importance of alcohol cessation. - Avoid hepatotoxic medications #. Chronic atrial fibrillation. CHADS2 score 1 (Stroke rate 2.8%/yr). Patient having alot of falls recently. No prior strokes reported. - monitor on telemetry - continue Cardizem 180 mg daily for rate control - no Coumadin due to fall and bleeding risks #. Seizure disorder No recent seizure episodes. Unclear if seizure is related to alcohol withdrawal - continue Dilantin daily - no need to obtain Dilantin levels # Opiate drug dependence,Chronic, present on admission - Continue his usual home medication regimen #. Nicotine dependence Cessation discussed and encouraged - Nicotine patch upon patients request - Bowel regimen as needed - Antiemetic as needed Patient admitted under inpatient status with expected length of stay > 2 midnights for severity of present symptoms, complexities of treatment plan and risk for adverse event . Pain Evaluation: Adequate Pain Control GI Prophylaxis: Not indicated VTE Prophylaxis: Sub-Q Enoxaparin VTE Mechanical Devices: Intermittant Pneumatic CD Resuscitation Status: CPR: Attempt Resuscitation Time spent 35 minutes John Briggs MD Nov 13, 2016 17:25
[2016-11-14] VITALS (8 sets, daily range): BP systolic 104–152; BP diastolic 75–95; PULSE 73–97; RESP 15–20; O2SAT 91–98
[2016-11-14] MEDS: Heparin 5,000 Unit/mL Inj SUBQ SCH ×3 (00:30→16:30)
[2016-11-14 04:50] LABS: BASOPHILS % (AUTO) 0.3 % (0-3); EOSINOPHILS % (AUTO) 0.9 % (0-5); MONOCYTES % (AUTO) 6.2 % (4-12); Mean Corpuscular Hemoglobin 26.7 pg (27.0-35.0); Mean Corpuscular Volume 85.4 fL (81-100); NEUTROPHILS % (AUTO) 64.6 % (40-74); Platelet Count 99 bil/L (150-400)
--- NOTE | 2016-11-14 06:26 | NUR ---
CIWA scores have been 14-15. Valium used per protocol. Pt continues to mumble incoherently and asks odd questions. Follows direction well and is cooperative with care.
[2016-11-14] MEDS: D5 0.45% NaCl + KCl 20 mEq/L 1,000 ML IV SCH ×2 (06:40→16:58)
[2016-11-14] MEDS: Diltiazem CD 180 mg ER24 Capsule PO SCH (07:38)
[2016-11-14] MEDS: Phenytoin 100 mg ER Capsule PO SCH ×2 (07:39→20:43)
[2016-11-14] MEDS: Multivit-Miner-Folic Acid-Iron Tablet PO SCH (07:39)
[2016-11-14] MEDS: Morphine ER 30 mg (MS Contin) Tablet PO SCH ×2 (07:40→20:42)
--- NOTE | 2016-11-14 12:48 | PCM.PNMED ---
Subjective Date of Service Nov 14, 2016 Subjective 70-year-old man presents with alcoholic intoxication and withdrawal. He is alert, mildly conversant but still encephalopathic. He voices no specific complaints. Exam Vital Signs Vital Sign - Last Date Time Temp Pulse Resp B/P Pulse Ox O2 Delivery O2 Flow Rate FiO2 11/14/16 09:03 Supplement Oxygen 11/14/16 09:03 36.5 74 15 141/95 94 2.00 Intake and Output 11/13/16 11/13/16 11/14/16 Cumulative From/Thru 15:00 23:00 07:00 11/11/16 18:12 - 11/14/16 06:52 Intake Total 1306 ml 1416 ml 5644 ml Output Total 350 ml 400 ml 4200 ml Balance 956 ml 1016 ml 1444 ml Intake Oral 118 ml 240 ml 708 ml IV Total 1188 ml 1176 ml 4936 ml Output Urine Total 350 ml 400 ml 4200 ml # Voids 1 # Bowel Movements 0 Exam General: no acute distress HEENT: sclerae anicteric, oral mucosa dry, poor dentition Neck: no JVD Chest: clear to auscultation Cardiac: S1S2, no murmur Abdomen: BS normal, non-tender Extremities: No edema Neuro: Response to simple questions, cranial nerves appear symmetric, motor strength grossly normal, no tremor, no asterixis IVs and Medications Medications Reviewed: Medications were reviewed in detail Lab and Diagnostics Result Diagram: 11/14/1642111/14/16421 X-Rays, CTs and MRIs PROCEDURE: X-RAY CHEST ONE VIEW, PORTABLE ([id number]) IMPRESSION: No acute cardiopulmonary disease. Dictated by: Natanael Ritchie [facility] Interpreted: Mikki Crump MD on 11/12/2016 at 9:40 Transcribed by: MIKY on 11/12/2016 at 9:40 . Assessment & Plan Kermit Quintana is a 70 year old male with Paroxysmal A fibrillation, Seizure disorder, Alcohol and Nicotine dependence and hypertension presents to [facility] emergency department via EMS seeking detox from Alcohol #. Alcohol Abuse with withdrawal syndrome. Present on admission Patient has not been to detox before. He reported hallucinations at time of admission. No signs of severe alcohol withdrawal this time. He received thiamine, folate, magnesium IV hydration. - Advance diet as tolerated - continuing CIWA protocol; taper off scheduled Librium - CAR UNLOADER HELPER consulted for placement in detox facility #. Hypokalemia. - Daily BMP - Switched to oral supplements #. Elevated transaminitis due to Alcoholic Hepatitis. Present on admission. Typical pattern for Alcoholic hepatitis with AST > ALT with around 2:1 ratio. Counseled by Carlo regarding importance of alcohol cessation. - Avoid hepatotoxic medications #. Chronic atrial fibrillation. CHADS2 score 1 (Stroke rate 2.8%/yr). Patient having alot of falls recently. No prior strokes reported. - monitor on telemetry - continue Cardizem 180 mg daily for rate control - no Coumadin due to fall and bleeding risks #. Seizure disorder No recent seizure episodes. Unclear if seizure is related to alcohol withdrawal - continue Dilantin daily - no need to obtain Dilantin levels # Opiate drug dependence,Chronic, present on admission - Continue his usual home medication regimen with MS Contin 30 mg twice a day #. Nicotine dependence Cessation discussed and encouraged - Nicotine patch upon patients request - Bowel regimen as needed - Antiemetic as needed Patient admitted under inpatient status with expected length of stay 1-2 more days. . Pain Evaluation: Adequate Pain Control GI Prophylaxis: Not indicated VTE Prophylaxis: Sub-Q Heparin (Unfractionated) VTE Mechanical Devices: Intermittant Pneumatic CD Resuscitation Status: CPR: Attempt Resuscitation Time spent 35 minutes John Briggs MD Nov 14, 2016 12:48
[2016-11-14] MEDS ORDERED: Potassium Chloride 20 mEq SR Tablet PO ONE (12:50)
--- NOTE | 2016-11-14 17:57 | NUR ---
Restlessness/BM Around 1600 this afternoon Pt started getting restless and moving around in bed, ripping off his clothes and tele. Pt quick moving and trying to climb out of bed. Pt confused and not following commands. Due to tremors pt very unsteady. IV and quinteros being pulled at. Administered 10 mg of Valium given at 1700, last dose given at 1300. Continued to monitor closely. Addendum: 11/14/16 at 1806 by REX HERMOSILLO RN No stool since 11/11, stool softener given this afternoon. Pt passing gas
[2016-11-15] VITALS (10 sets, daily range): BP systolic 111–135; BP diastolic 78–93; PULSE 75–93; RESP 14–20; O2SAT 91–98
[2016-11-15] MEDS: Heparin 5,000 Unit/mL Inj SUBQ SCH ×3 (00:59→16:17)
[2016-11-15 04:34] LABS: BASOPHILS % (AUTO) 0.3 % (0-3); EOSINOPHILS % (AUTO) 1.1 % (0-5); Mean Corpuscular Hemoglobin 26.9 pg (27.0-35.0); Mean Corpuscular Volume 85.4 fL (81-100); NEUTROPHILS % (AUTO) 68.5 % (40-74); Platelet Count 113 bil/L (150-400)
[2016-11-15] MEDS: D5 0.45% NaCl + KCl 20 mEq/L 1,000 ML IV SCH ×2 (05:15→16:17)
--- NOTE | 2016-11-15 05:56 | NUR ---
CIWA Pt very restless and pulling on Tele cables and taking gown off. Pt keeps trying to get OOB constantly wanting to urinate and needs to be reminded that he has Love in place. Pt up to BSC x1, very unsteady and weak. 5 mg Valium given for Ciwa of 12 with little effect, therefore second dose of 5 mg Valium given and pt able to settle down and sleep for remainder of night.
[2016-11-15] MEDS: Diltiazem CD 180 mg ER24 Capsule PO SCH (10:31)
[2016-11-15] MEDS: Morphine ER 30 mg (MS Contin) Tablet PO SCH ×2 (10:31→20:41)
[2016-11-15] MEDS: Multivit-Miner-Folic Acid-Iron Tablet PO SCH (10:31)
[2016-11-15] MEDS: Phenytoin 100 mg ER Capsule PO SCH ×2 (10:32→20:41)
[2016-11-15 12:48] LABS: Unsaturated Iron Binding 201.1 ug/dL
--- NOTE | 2016-11-15 13:59 | DRSVH ---
PROCEDURE: CT BRAIN WITHOUT CONTRAST ([id number]) INDICATIONS: unexplained encephalopathy TECHNIQUE: Noncontrast 4.5 mm thick angled axial sections acquired from the foramen magnum to the vertex, with c oronal reformats. COMPARISON: None. FINDINGS: Image quality: There is mild motion artifact. CSF spaces: Basal cisterns are patent. No extra-axial fluid collections. The ventricles are symmet phan in size and shape. There is mild to moderate cerebral volume loss, with resultant ventricular an d sulcal prominence. Brain: No intracranial hemorrhage, mass, or mass effect. There is a small region of encephalomalaci a within the right occipital lobe. There are subcortical, periventricular and deep white matter hypo densities consistent with chronic small vessel ischemic changes. There is intracranial internal carter tid artery atherosclerosis. Skull and face: Calvarium and visualized facial bones appear intact, without suspicious lesions. Sinuses: Visualized sinuses and mastoids are clear. IMPRESSION: 1. No definite acute intracranial abnormality. 2. 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 3. Pstt-vq-zpsymmgv cerebral volume loss and chronic white matter small vessel ischemic changes. Dictated by: Poli Dennis M.D. on 11/15/2016 at 13:50 Approved by: Poli Dennis M.D. on 11/15/2016 at 13:57
--- NOTE | 2016-11-15 16:01 | PCM.PNMED ---
Subjective Date of Service Nov 15, 2016 Subjective 70-year-old man presents with alcoholic intoxication and withdrawal. Reported to be minimally responsive earlier today by nursing staff. The time of my assessment he is alert, conversant but with limited insight. He describes bugs crawling in his skin but seems not to be bothered by this. He is otherwise fully alert and calm. He acknowledges that he needs to stop drinking. Exam Vital Signs Vital Sign - Last Date Time Temp Pulse Resp B/P Pulse Ox O2 Delivery O2 Flow Rate FiO2 11/15/16 12:49 36.4 92 20 128/93 98 Room Air 11/15/16 03:22 1.00 Intake and Output 11/14/16 11/14/16 11/15/16 Cumulative From/Thru 14:59 22:59 06:59 11/11/16 18:12 - 11/15/16 06:11 Intake Total 1113 ml 1088 ml 7845 ml Output Total 1300 ml 1950 ml 7450 ml Balance -187 ml -862 ml 395 ml Intake Oral 258 ml 100 ml 1066 ml IV Total 855 ml 988 ml 6779 ml Output Urine Total 1300 ml 1950 ml 7450 ml # Voids 1 # Bowel Movements 0 Exam General: Disheveled appearing, no acute distress HEENT: sclerae anicteric, oral mucosa dry, poor dentition Neck: no JVD Chest: clear to auscultation Cardiac: S1S2, no murmur Abdomen: BS normal, non-tender Extremities: No edema; clubbing Neuro: Alert and mostly oriented, cranial nerves appear symmetric, motor strength grossly normal, no tremor, no asterixis IVs and Medications Medications Reviewed: Medications were reviewed in detail Lab and Diagnostics TSH 1.87, ammonia normal Reticulocyte count 1.5, iron indices consistent with chronic disease Result Diagram: 11/15/16 0401 11/15/16 0401 X-Rays, CTs and MRIs PROCEDURE: X-RAY CHEST ONE VIEW, PORTABLE ([id number]) IMPRESSION: No acute cardiopulmonary disease. Dictated by: Natanael RAY Interpreted: Mikki Crump MD on 11/12/2016 at 9:40 Transcribed by: MIKY on 11/12/2016 at 9:40 PROCEDURE: CT BRAIN WITHOUT CONTRAST ([id number]) IMPRESSION: 1. No definite acute intracranial abnormality. 2. 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 3. Jmrf-tq-uetzltck cerebral volume loss and chronic white matter small vessel ischemic changes. Dictated by: Poli Dennis M.D. on 11/15/2016 at 13:50 . Assessment & Plan Kermit Quintana is a 70 year old male with Paroxysmal A fibrillation, Seizure disorder, Alcohol and Nicotine dependence and hypertension presents to [facility] emergency department via EMS seeking detox from Alcohol Acute and/or high-risk problems: #. Alcohol Abuse with withdrawal syndrome. Present on admission. Patient has not been to detox before. He reported hallucinations at time of admission. No signs of severe alcohol withdrawal this time. 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 He received thiamine, folate, magnesium IV hydration. - Advance diet as tolerated -Taper off CIWA protocol; taper off scheduled Librium - LETTER OF CREDIT DOCUMENT EXAMINER consulted for placement in detox facility #. Chronic Encephalopathy. Head CT suggests cerebrovascular disease but no acute process. Call toxicity seems likely. General lab studies unremarkable. Vitamin B12, RPR pending. I do not think his report of skin bugs crawling is a sign of uncontrolled psychosis. - Monitor clinically #. Elevated transaminitis due to Alcoholic Hepatitis. Present on admission. Typical pattern for Alcoholic hepatitis with AST > ALT with around 2:1 ratio. Counseled by Carlo regarding importance of alcohol cessation. - Avoid hepatotoxic medications Resolving, stable and/or chronic problems: #. Anemia, chronic. No evidence of GI blood loss. 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 - Follow-up methylmalonic acid #. Hypokalemia. - Daily BMP - Switched to oral supplements #. Chronic atrial fibrillation. CHADS2 score 1 (Stroke rate 2.8%/yr). Patient having alot of falls recently. No prior strokes reported. - monitor on telemetry - continue Cardizem 180 mg daily for rate control - no Coumadin due to fall and bleeding risks #. Seizure disorder No recent seizure episodes. Unclear if seizure is related to alcohol withdrawal - continue Dilantin daily - no need to obtain Dilantin levels # Opiate drug dependence,Chronic, present on admission - Continue his usual home medication regimen with MS Contin 30 mg twice a day #. Nicotine dependence Cessation discussed and encouraged - Nicotine patch upon patients request - Bowel regimen as needed - Antiemetic as needed Anticipated is for discharge on 11/16. . Pain Evaluation: Adequate Pain Control GI Prophylaxis: Not indicated VTE Prophylaxis: Sub-Q Heparin (Unfractionated) VTE Mechanical Devices: Intermittant Pneumatic CD Resuscitation Status: CPR: Attempt Resuscitation Time spent 35 minutes John Briggs MD Nov 15, 2016 16:01
--- NOTE | 2016-11-15 16:22 | NUR ---
Social Work Note: Continued Discharge Planning Data& Assessment: SW met with pt and pt ROJELIO Forrest at bedside to check in and assess for any unmet needs. Pt is interested in going to inpt rehab for his alcohol intake. Pt had agreed to meet with CDP for formal bedside assessment, but has not been appropriate. Pt is not more alert, oriented and able to participate in conversation. SW to notify CDP if this improvement. SW explained process of going to inpt rehab and emphasized that due to the process with insurance and bed availability, it it unlikely that pt will discharge directly to inpt rehab from the hospital. SW provided pt ROJELIO Forrest with community resource and CD resource information for her to reference at home. Pt and pt SO deny any other needs at this time. SW to continue to follow. Plan: Anticipated discharge home when medically ready. CD Assessment pending with CDP with [facility]. SW to notify CDP of mentation improvement. Pt and pt SO deny any other needs at this time. SW to continue to follow. ONEL Ordonez
--- NOTE | 2016-11-15 18:03 | NUR ---
LUPIS BAUGH 10-13 throughout shift reported mostly itching "like bugs all over", nausea, mild/moderate restlessness-- administered IV Valium x3 -- patient became more restless as shift progressed but generally responded to commands. No reports of chest pain/pressure/discomfort, tele SR 80s, BP within normal limits, distal pulses palpable. No reports of SOB at rest. SPO2 on RA 94%. Patient reports "not much" sputum production--swallowed. Reports very mild nausea, denies abdominal pain with light palpation. No vomiting or diarrhea. Needs frequent reminding that he has Love catheter in place -- patent and draining dark yellow urine to gravity. Patient drowsy this AM, woke to light touch minor stimulation -- oriented x3. Speech is very mumbled/slurred and while sleeping patient shows some decorticate posturing--especially bilateral upper extremities. Addendum: 11/15/16 at 1808 by TABBY MCCLURE RN No BM since 11/11--miralax given.
[2016-11-16] VITALS (8 sets, daily range): BP systolic 96–133; BP diastolic 65–80; PULSE 65–104; RESP 14–18; O2SAT 94–97
[2016-11-16] MEDS: Heparin 5,000 Unit/mL Inj SUBQ SCH ×3 (01:47→16:14)
--- NOTE | 2016-11-16 02:03 | NUR ---
Mentation Pt alert and oriented to self and place only. Drowsy but able to answer questions. Denies pain. Scoring 13 on both CIWA's taken at 2200 and 0000. Valium given after both CIWAs. Two attempts to get out of bed and "go pee." Pt easily reoriented.
[2016-11-16] MEDS: D5 0.45% NaCl + KCl 20 mEq/L 1,000 ML IV SCH ×2 (06:44→11:31)
[2016-11-16] MEDS: Diltiazem CD 180 mg ER24 Capsule PO SCH (07:46)
[2016-11-16] MEDS: Phenytoin 100 mg ER Capsule PO SCH ×2 (07:47→20:02)
[2016-11-16] MEDS: Morphine ER 30 mg (MS Contin) Tablet PO SCH ×2 (07:48→20:02)
[2016-11-16] MEDS: Multivit-Miner-Folic Acid-Iron Tablet PO SCH (07:49)
[2016-11-16 07:54] LABS: BASOPHILS % (AUTO) 0.3 % (0-3); EOSINOPHILS % (AUTO) 1.7 % (0-5); MONOCYTES % (AUTO) 10.7 % (4-12); Mean Corpuscular Hemoglobin 26.6 pg (27.0-35.0); Mean Corpuscular Volume 84.6 fL (81-100); NEUTROPHILS % (AUTO) 52.4 % (40-74); Platelet Count 165 bil/L (150-400)
--- NOTE | 2016-11-16 10:20 | NUR ---
ANDREW signed ONEL Mane
--- NOTE | 2016-11-16 11:18 | NUR ---
Evaluation completed. Please go to "Notes" then click on "Assessments and Notes" (bottom left corner of screen). Then select appropriate discipline tab on top of screen.
--- NOTE | 2016-11-16 13:06 | NUR ---
Evaluation completed. Please go to "Notes" then click on "Assessments and Notes" (bottom left corner of screen). Then select appropriate discipline tab on top of screen.
--- NOTE | 2016-11-16 16:06 | PCM.PNMED ---
Subjective Date of Service Nov 16, 2016 Subjective 70-year-old man presents with alcoholic intoxication and withdrawal. He is alert and communicative, but continues with CIWA approximately 10. He acknowledges that he needs to stop drinking. Exam Vital Signs Vital Sign - Last Date Time Temp Pulse Resp B/P Pulse Ox O2 Delivery O2 Flow Rate FiO2 11/16/16 12:11 36.4 14 133/65 97 Room Air 11/16/16 10:19 69 11/15/16 03:22 1.00 Intake and Output 11/15/16 11/15/16 11/16/16 Cumulative From/Thru 15:00 23:00 07:00 11/11/16 18:12 - 11/16/16 06:43 Intake Total 873 ml 600 ml 9318 ml Output Total 1750 ml 1360 ml 45481 ml Balance -877 ml -760 ml -1242 ml Intake Oral 250 ml 600 ml 1916 ml IV Total 623 ml 7402 ml Output Urine Total 1750 ml 1360 ml 39427 ml # Voids 1 # Bowel Movements 0 0 Exam General: Disheveled appearing, no acute distress HEENT: sclerae anicteric, oral mucosa dry, poor dentition Neck: no JVD Chest: clear to auscultation Cardiac: S1S2, no murmur Abdomen: BS normal, non-tender Extremities: No edema; clubbing Neuro: Alert and mostly oriented, cranial nervessymmetric, motor normal, no tremor, no asterixis IVs and Medications Medications Reviewed: Medications were reviewed in detail Lab and Diagnostics Result Diagram: 11/16/16 0715 11/16/16 0715 X-Rays, CTs and MRIs PROCEDURE: X-RAY CHEST ONE VIEW, PORTABLE ([id number]) IMPRESSION: No acute cardiopulmonary disease. Dictated by: Natanael RAY Interpreted: Mikki Crump MD on 11/12/2016 at 9:40 Transcribed by: MIKY on 11/12/2016 at 9:40 PROCEDURE: CT BRAIN WITHOUT CONTRAST ([id number]) IMPRESSION: 1. No definite acute intracranial abnormality. 2. 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 3. Oxcf-sj-eocqedoj cerebral volume loss and chronic white matter small vessel ischemic changes. Dictated by: Poli Dennis M.D. on 11/15/2016 at 13:50 . Assessment & Plan Kermit Quintana is a 70 year old male with Paroxysmal A fibrillation, Seizure disorder, Alcohol and Nicotine dependence and hypertension presents to [facility] emergency department via EMS seeking detox from Alcohol Acute and/or high-risk problems: #. Alcohol Abuse with withdrawal syndrome. Present on admission. Patient has not been to detox before. He reported hallucinations at time of admission. No signs of severe alcohol withdrawal this time. 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 He received thiamine, folate, magnesium IV hydration. - Advance diet to full as tolerated -Taper off CIWA protocol; taper off scheduled Librium - SIEBEL DEVELOPER consulted for placement in detox facility; likely readily on 11/17 #. Chronic Encephalopathy. Head CT suggests cerebrovascular disease but no acute process. Call toxicity seems likely. General lab studies unremarkable. Vitamin B12, RPR pending. I do not think his report of skin bugs crawling is a sign of uncontrolled psychosis. - Monitor clinically #. Elevated transaminitis due to Alcoholic Hepatitis. Present on admission. Typical pattern for Alcoholic hepatitis with AST > ALT with around 2:1 ratio. Counseled by Carlo regarding importance of alcohol cessation. - Avoid hepatotoxic medications Resolving, stable and/or chronic problems: #. Anemia, chronic. No evidence of GI blood loss. 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 - Follow-up methylmalonic acid #. Hypokalemia. - Daily BMP - Switched to oral supplements #. Chronic atrial fibrillation. CHADS2 score 1 (Stroke rate 2.8%/yr). Patient having alot of falls recently. No prior strokes reported. - monitor on telemetry - continue Cardizem 180 mg daily for rate control - no Coumadin due to fall and bleeding risks #. Seizure disorder No recent seizure episodes. Unclear if seizure is related to alcohol withdrawal - continue Dilantin daily - no need to obtain Dilantin levels # Opiate drug dependence,Chronic, present on admission - Continue his usual home medication regimen with MS Contin 30 mg twice a day #. Nicotine dependence Cessation discussed and encouraged - Nicotine patch upon patients request - Bowel regimen as needed - Antiemetic as needed Anticipated is for discharge on 11/17. . GI Prophylaxis: Not indicated VTE Prophylaxis: Sub-Q Heparin (Unfractionated) VTE Mechanical Devices: Intermittant Pneumatic CD Resuscitation Status: CPR: Attempt Resuscitation Time spent 25 minutes John Briggs MD Nov 16, 2016 16:06
--- NOTE | 2016-11-16 17:18 | NUR ---
CIWA/BM CIWA score this morning was a 10, now has decreased to a 6. Pt can answer questions but not always appropriately. Alert to self and place. No hallucinations this shift. Received valium one time this afternoon. Last BM or , unsure. Given one PO stool softener.
[2016-11-17] VITALS (8 sets, daily range): BP systolic 116–124; BP diastolic 75–97; PULSE 83–108; RESP 9–22; O2SAT 91–97
[2016-11-17] MEDS: Heparin 5,000 Unit/mL Inj SUBQ SCH ×3 (00:49→16:46)
[2016-11-17] MEDS: D5 0.45% NaCl + KCl 20 mEq/L 1,000 ML IV SCH (01:20)
[2016-11-17 05:14] LABS: BASOPHILS % (AUTO) 0.2 % (0-3); EOSINOPHILS % (AUTO) 1.7 % (0-5); MONOCYTES % (AUTO) 13.4 % (4-12); Mean Corpuscular Hemoglobin 26.9 pg (27.0-35.0); Mean Corpuscular Volume 85.4 fL (81-100); NEUTROPHILS % (AUTO) 52.4 % (40-74); Platelet Count 209 bil/L (150-400)
--- NOTE | 2016-11-17 05:44 | NUR ---
Awake: Pt was awake most of the night, activating the bed alarm as he attempted to get OOB, stating that he wanted to go home. Pt finally fell asleep in the mireya chair this morning after it was reclined. No signs of withdrawl through the night.
[2016-11-17] MEDS: Diltiazem CD 180 mg ER24 Capsule PO SCH (08:40)
[2016-11-17] MEDS: Morphine ER 30 mg (MS Contin) Tablet PO SCH (08:40)
[2016-11-17] MEDS: Phenytoin 100 mg ER Capsule PO SCH (08:41)
[2016-11-17] MEDS: Multivit-Miner-Folic Acid-Iron Tablet PO SCH (08:44)
--- NOTE | 2016-11-17 11:54 | PCM.DIMED ---
Discharge Instructions Date of Service Nov 17, 2016 Dates of Hospitalization Nov 11, 2016 at 20:52 Discharge Diagnosis Discharge Diagnosis Alcohol intoxication; alcohol withdrawal; chronic encephalopathy Diet No restrictions Activity No restrictions Patient Instructions You have been counseled by her physician on the importance of stopping alcohol use. You have been given resources for community programs and we strongly encourage you to follow-up on this. You have been weakened by this hospitalization and we recommended that you consider a [facility]-term stay at [facility] for rehabilitation. You have chosen to refuse this option. Follow-up Provider: [facility] Follow-up with PCP in: 1 week John Briggs MD Nov 17, 2016 11:54
--- NOTE | 2016-11-17 12:43 | NUR ---
Social Work Note: Discharge Data& Assessment: EMR reviewed. Per pt is medically ready for discharge. Jenni Quintana Jr is a 70 year old male admitted on 11/11/2016 for DT's and alcohol withdrawal. Per pt is medically improved and ready for discharge. SW met with pt at bedside to discuss discharge planning and assess for any unmet needs. Per PT, pt requires SNF at time of discharge. Pt explained he has been to a SNF in the past after a hip fracture and he does not want to go to SNF again, he wants to go home. Pt declined [facility] swing bed program as well. Pt does not feel like he needs PT and states he has his walker at home and is ambulating at baseline. Pt lives in a trailer. CD Assessment completed (See separate documentation). Pt was accepting of resources, but declined offer for SW to make [facility] assessment appointment for him. Pt explained he will do it himself. Pt had previously signed SHAYLEE for CDP from [facility] to complete the assessment at bedside, but pt may discharge before the CDP is able to see him. SW left a voicemail with CDP referencing pt mentation being improved and discharge orders finalized. Pt states his S/O Lon will transport him home today. Pt denies any other needs. No other discharge needs identified. Plan: Per pt is medically improved and ready to discharge home via POV. Pt declined any other PT services at this time. Pt states his S/O Lon will transport him home today. Pt denies any other needs. No other discharge needs identified. ONEL Ordonez
--- NOTE | 2016-11-17 13:59 | NUR ---
Social Work Note: CD Assessment Current Circumstances: Jenni Quintana Jr is a 70 year old male admitted on 11/11/2016 for DT's and Alcohol Withdrawal. Pt has been going through withdrawal and on CIWA protocol. Pt is more appropriate today. Pt was agreeable to discus his alcohol intake and hx. Hx of substance use: Pt reports consuming 16-33 beers daily. Pt will take short naps throughout the day but spends most of his time continuously drinking. Hx programs/detox: Pt denies any tx hx. Pt reports having many 12 step books at home that he has found to be helpful for him. Hx of w/d symptoms: Pt was not able to specify or identify withdrawal symptoms that he experiences. Pt did deny hx of seizures. Family Hx: Pt denies family hx. Hx of sobriety and supports: Pt reports a 33 year sobriety that he did on his own without treatment. Pt S/O Lon is a positive support for him. Patients perception of the consequences of use: Pt explained "I didn't want to be a drunk, that's not something I meant to be." Pt identifies growing tension with his ex as a consequence of use as well. Suicide Risk: Pt denies any current SI. Pt denies any hx of experiencing suicidal ideation while drinking or while sober. Pt denies any suicide attempts as well. Motivation for tx: Pt would like to participate in AA and eventually go to inpt treatment. Pt has signed SHAYLEE to speak with CDP from [facility] but is unsure if the CDP will be able to speak with him before he is discharged. SW notified CDP of pt discharge orders. Discharge Plan: Pt to be discharged back home. Pt declined SW offer to make outpt [facility] assessment appt. for him. Pt was accepting of resources. SW highlighted the crisis line number, AA information, and [facility] information. Pt was also provided with a re-thinking drinking booklet. ONEL Ordonez
--- NOTE | 2016-11-17 16:38 | NUR ---
Social Work Note: Discharge (Updated) Data& Assessment: Pt family is at pt bedside and explained they do not feel like pt is safe to discharge home and travel up the stairs to get into his trailer. Pt family has convinced pt to go to SNF for a short rehab stay to get stronger as pt is a fall risk and not ambulating at baseline at this time. Pt requires SNF. Pt and pt family provided with SNF list for preferences. Pt first preference is [facility], second would be [facility] in [place] and third would be [facility]. Access provided to [facility] and spoke with admission coordinator Kyler who explained they would be able to accept pt tonight. Wheelchair van arranged by facility picking pt up at 6:00p.m. and RN notified. SW contacted pt family. Clinicals faxed. All updated and agreeable to plan. Plan: Per pt is medically ready for discharge. Pt requires SNF. Pt is accepted at [facility]. Wheelchair van arranged by facility picking pt up at 6:00p.m. and RN notified. SW contacted pt family. Clinicals faxed. All updated and agreeable to plan. ONEL Ordonez
--- NOTE | 2016-11-17 17:02 | PCM.DC.MED ---
Discharge Summary Date of Service Nov 17, 2016 Dates of Hospitalization Date of Hospital Admission Nov 11, 2016 at 20:52 Date of Discharge: Nov 17, 2016 Providers: Admitting Physician: Roque Rico MD Primary Care Physician: ANNA Leslie Residency Attending Physician: Roque Rico MD Diagnosis at Time of Discharge Diagnosis at Time of Discharge Alcohol intoxication; alcohol withdrawal; chronic encephalopathy Procedures XRay, CTs & MRIs PROCEDURE: X-RAY CHEST ONE VIEW, PORTABLE ([id number]) IMPRESSION: No acute cardiopulmonary disease. Dictated by: Natanael Ritchie [facility] Interpreted: Mikki Crump MD on 11/12/2016 at 9:40 Transcribed by: MIKY on 11/12/2016 at 9:40 PROCEDURE: CT BRAIN WITHOUT CONTRAST ([id number]) IMPRESSION: 1. No definite acute intracranial abnormality. 2. 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 3. Aker-bc-[id number] cerebral volume loss and chronic white matter small vessel ischemic changes. Dictated by: Poli Dennis M.D. on 11/15/2016 at 13:50 . Brief History History of Present Illness (per admission note): Kermit Quintana is a 70 year old male with Paroxysmal A fibrillation, Seizure disorder, Alcohol and Nicotine dependence and hypertension presents to [facility] emergency department via EMS seeking detox from Alcohol Friend reports that he is drunk every morning and drinks through the day. Associated symptoms include bladder and bowel incontinence, intermittent vomiting, headache, visual hallucinations of "blue stars", auditory hallucinations and tactile hallucinations of "bugs crawling over him". Today, the patient drank 2 Armani's Hard and one 24 oz. around 2 PM. Patient accompanied by his ex who supports him. Patient stated he needed to do something about his drinking now otherwise he will He has been taking Ondansetron for the past 4 months for his nausea. Patient was sober for the past 33 years and reportedly started drinking 2 years after his . He reports drinking heavily for the past 5 years. Patient recently stopped taking Warfarin which he takes for Atrial fibrillation as blood work showed INR >10 but no bleeding noted. Patient was seen in the ED on 09/03 after a GLF and was discharged in good condition with a hip contusion. He has Seizure disorder and also smokes on a daily basis. He has questionable compliance with his other medications that includes Dilantin and Cardizem. Hospital Course #. Alcohol Abuse with withdrawal syndrome. Present on admission. Alcohol level 171 initially. Urine tox with benzodiazepine. He reported hallucinations at time of admission, but did not manifest classic signs of alcohol withdrawal. His CIWA score is consistently 9-10, due to psychiatric features.. 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 He received thiamine, folate, magnesium IV hydration. He did not demonstrate a high degree of motivation for alcohol recovery program. His expressed concerns about his abusive behavior when he drinks and her inability to cope at home. #. Chronic Encephalopathy. Head CT suggests cerebrovascular disease but no acute process. Alcohol toxicity seems likely. General lab studies unremarkable. Ammonia level essentially normal at 56. TSH normal. RPR negative. I do not think his report of skin bugs crawling is a sign of uncontrolled psychosis. 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 Elevated transaminitis due to Alcoholic Hepatitis. Present on admission. Typical pattern for Alcoholic hepatitis with AST > ALT with around 2:1 ratio. Counseled by Carlo regarding importance of alcohol cessation. #. Anemia, chronic. No evidence of GI blood loss. Reticulocyte count was 1.5. TIBC was 237 with serum iron 36. 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 - Follow-up methylmalonic acid is pending at time of discharge #. Hypokalemia. -Resolved, does not seem to require supplement. #. Chronic atrial fibrillation. Rate was well controlled. CHADS2 score 1 ( Stroke rate 2.8%/yr). Patient having alot of falls recently. No prior strokes reported. - continue Cardizem 180 mg daily for rate control - no Coumadin due to fall and bleeding risks #. Seizure disorder No recent seizure episodes. Unclear if seizure is related to alcohol withdrawal - continue Dilantin daily # Opiate drug dependence,Chronic, present on admission - Continue his usual home medication regimen with MS Contin 30 mg twice a day; when necessary oxycodone #. Nicotine dependence Cessation discussed and encouraged - Bowel regimen as needed - Antiemetic as needed . Exam Vital Signs (Last) Date Time Temp Pulse Resp B/P Pulse Ox O2 Delivery O2 Flow Rate FiO2 11/17/16 14:07 36.0 83 22 118/84 97 Room Air 11/15/16 03:22 1.00 Exam General: Disheveled appearing, no acute distress HEENT: sclerae anicteric, oral mucosa dry, poor dentition Neck: no JVD Chest: clear to auscultation Cardiac: S1S2, no murmur Abdomen: BS normal, non-tender Extremities: No edema; clubbing Neuro: Alert and mostly oriented but speaks minimally and seems grumpy, cranial nerves symmetric, motor normal, no tremor, no asterixis Test 11/11/16 18:08 11/11/16 19:41 11/12/16 08:30 11/15/16 12:05 Hold Purple Top Tube Received (Received) Prothrombin Time 10.0sec (8.1-12.5) Prothromb Time International Ratio 0.94ratio Activated Partial Thromboplast Time 27.1sec (22.8-33.0) Hold Blue Top Tube Received (Received) Phosphorus Level 2.8mg/dL (2.5-4.9) Magnesium Level 1.9mg/dL (1.6-2.6) Hold Red Top Tube Received (Received) Hold [place] Top Tube Received (Received) Alcohols 171mg/dL (0-10) Hold Urine Received (Received) Urine Opiates Screen Negative Urine Methadone Screen Negative Urine Barbiturates Screen Negative Urine Amphetamines Screen Negative Urine Benzodiazepines Screen Positive Urine Cocaine Metabolite Screen Negative Urine Cannabinoids Screen Negative Reticulocyte Count,Calculated 1.5% (0.6-2.6) Iron Level 36ug/dL (35-150) Total Iron Binding Capacity 237ug/dL (250-450) Percent Iron Saturation 15%sat (15-50) Unsaturated Iron Binding 201.1ug/dL Ammonia 56ug/dL (18-53) Thyroid Stimulating Hormone (TSH) 1.870uIU/mL (0.450-4.500) Free Thyroxine 0.83ng/dL (0.82-1.77) Rapid Plasma Reagin Non reactive (Non Reactive) Test 11/17/16 04:26 White Blood Count 4.2th/mm3 (3.8-10.1) Red Blood Count 3.76mil/mm3 (4.40-5.80) Hemoglobin 10.1g/dL (13.8-17.2) Hematocrit 32.1% (41.0-50.0) Mean Corpuscular Volume 85.4fL (81-100) Mean Corpuscular Hemoglobin 26.9pg (27.0-35.0) Mean Corpuscular Hemoglobin Concent 31.5% (32.0-37.0) Red Cell Distribution Width 17.5% (12.3-15.4) Platelet Count 209bil/L (150-400) Neutrophils (%) (Auto) 52.4% (40-74) Lymphocytes (%) (Auto) 32.1% (14-46) Monocytes (%) (Auto) 13.4% (4-12) Eosinophils (%) (Auto) 1.7% (0-5) Basophils (%) (Auto) 0.2% (0-3) Sodium Level 136mEq/L (134-144) Potassium Level 3.9mEq/L (3.5-5.2) Chloride Level 102mEq/L (97-108) Carbon Dioxide Level 19mmol/L (18-29) Blood Urea Nitrogen 6mg/dL (8-27) Creatinine 0.55mg/dL (0.76-1.27) Estimat Glomerular Filtration Rate 157mL/min (>59) Glucose Level 99mg/dL (60-99) Calcium Level 8.9mg/dL (8.5-10.1) Total Bilirubin 0.8mg/dL (0.0-1.2) Aspartate Amino Transf (AST/SGOT) 42U/L (0-50) Alanine Aminotransferase (ALT/SGPT) 29U/L (0-44) Alkaline Phosphatase 214U/L (25-160) Total Protein 6.1g/dL (6.4-8.4) Albumin 3.0g/dL (3.4-5.0) Discharge Medications Discharge Medications Diltiazem ER (Cardizem CD) 180 Mg Cap.er.24h 180 MG PO DAILY Prescribed by: TONNY CURRY MD Famotidine (Pepcid) 20 Mg Tablet 20 MG PO BID Prescribed by: DIANA MONTEMAYOR MD Folic Acid (Folic Acid) 1 Mg Tablet 1 MG PO DAILY Prescribed by: TONNY CURRY MD Morphine Sulfate ER (MS Contin) 30 Mg Tablet.er 30 MG PO BID Prescribed by: AKANKSHA NIETO MD Multivitamin (Once Daily) 1 Each Tablet 1 EACH PO DAILY Prescribed by: TONNY CURRY MD Nicotine 21 mg/24 hr Patch (Nicotine 21 mg/24 hr Patch) 1 Each Patch.dysq 1 PATCH TRANSDERM DAILY (Reported) Phenytoin Sodium ER (Dilantin) 100 Mg Capsule 100 MG PO AM (Reported) Phenytoin Sodium ER (Dilantin) 100 Mg Capsule 300 MG PO HS (Reported) Thiamine Mononitrate (Vitamin B-1) 100 Mg Tablet 100 MG PO DAILY Prescribed by: TONNY CURRY MD As needed Acetaminophen (Acetaminophen) 325 Mg Capsule 650 MG PO q4 hours PRN PRN For Pain (Reported) Albuterol HFA (Proair HFA) 8.5 Gm Hfa.aer.ad 2 PUFFS INHALATION Q4H PRN PRN For Shortness of Breath (Reported) Bisacodyl (Dulcolax Rectal) 10 Mg Supp.rect 10 MG RC DAILY PRN PRN For Constipation (Reported) Docusate Sodium (Colace) 100 Mg Capsule 100 MG PO DAILY PRN PRN For Constipation Prescribed by: KEITH HAQ Hydrocodone-Acetaminophen 5-325 mg (Hydrocodone-Acetaminophen 5-325 mg) 1 Each Tablet 1 TABLET PO Q4H PRN PRN For Pain Prescribed by: AKANKSHA NIETO MD Magnesium Hydroxide (Milk of Magnesia) 400 Mg/5 Ml Oral.susp 400 MG PO DAILY PRN PRN For Constipation (Reported) Ondansetron ODT (Zofran ODT) 4 Mg Tablet 4 MG PO Q4H PRN PRN For Nausea Prescribed by: KEITH HAQ Followup Plan Disposition: [facility], Dr. Bull following Discharge Diet: No restrictions Discharge Activity: No restrictions Patient Instructions You have been counseled by her physician on the importance of stopping alcohol use. You have been given resources for community programs and we strongly encourage you to follow-up on this. You have been weakened by this hospitalization and we recommended that you consider a short-term stay at detention home for rehabilitation. You have chosen to refuse this option. Follow-up Provider: [facility] Follow-up with PCP in: 1 week Provider: Yeimy Bull MD Time spent 35 minutes copies to: Yeimy Bull MD, Jeffrey W MD Nov 17, 2016 17:02
--- NOTE | 2016-11-17 18:23 | NUR ---
Discharge Patient left with caregiver and transportation to head to nursing facility placement. IV was removed. Telemetry leads were removed. Pt left with all belongings and possessions. Report called to receiving RN.
== END 2016-11-17 18:02 | DRG 896 ==
LOC: SED 18:07 → CCU 20:52 → PCC 11-12 04:24
PROVIDERS: ADMIT Hospitalist; ATTEND Hospitalist
DX: F10.231 Alcohol dependence with withdrawal delirium (principal); G93.40 Encephalopathy, unspecified; R44.0 Auditory hallucinations; R44.2 Other hallucinations; F11.20 Opioid dependence, uncomplicated; K70.10 Alcoholic hepatitis without ascites; Y90.6 Blood alcohol level of 120-199 mg/100 ml; I10 Essential (primary) hypertension; J44.9 Chronic obstructive pulmonary disease, unspecified; D64.89 Other specified anemias; F17.210 Nicotine dependence, cigarettes, uncomplicated; I48.0 Paroxysmal atrial fibrillation; G40.909 Epilepsy, unspecified, not intractable, without status epilepticus; E87.6 Hypokalemia

== ENCOUNTER 2016-12-23 00:39 | Observation (INO) | payer MEDICARE, OTHER ==
[~2016-12-23] VITALS: Ht 175.3 cm; Wt 68.2 kg
[2016-12-23] VITALS (10 sets, daily range): BP systolic 111–151; BP diastolic 78–91; PULSE 73–86; RESP 15–18; O2SAT 96–99
[~2016-12-23 00:39] MED LIST changes: +ALBU8.5H2 INHALATION; -CHLO25CA10 PO; -CLIN-78 PO; -FENTANYL 12 MCG/HR TRANSDERM; -HYDR-656 PO; +NICO1PAT16 TRANSDERM; -NICO1PAT5 TOPICAL; -ONDA-53 PO; -OXYC20TA55 PO; -OXYC5CAP4 PO; -VANC1PLA9 IV; -WARF2.5T82 PO
--- NOTE | 2016-12-23 00:43 | ED.REPORT ---
HPI-Altered Mental Status Date of Service December 23, 2016 ED Provider: Dr. Branden Alvarez M.D. A 71 year old male with a medical history including epilepsy, GERD, pancreatitis , hypertension, COPD, and atrial fibrillation on Warfarin presents to the ED via EMS with imbalance resulting in frequent falls onset one week ago, after returning home from an assisted living facility. Associated symptoms include confusion, dizziness, right-sided abdominal pain, and altered mental status. The patient's reports that he has been "spacey" this evening and his speaking has decreased. He has also been intermittently nauseous and vomiting for more than a month. The patient was given Vicodin at 1100 today. He was in the assisted living facility recently for diagnoses including weakness, cognitive communication deficit, and encephalopathy. The patient's denies other symptoms. History is limited due to patient's mental status. Nursing Notes Stated Complaint: ALTERED MENTAL STATUS Chief Complaint: General Complaint Nursing Notes Reviewed: Yes (ACE, meds not reconciled) Allergies: Coded Allergies: atenolol (Verified Allergy, Unknown, 12/23/16) methadone (Verified Allergy, Unknown, TAKES OXYCODONE/HYDROCODONE/FENTANYL , 12/23/16) aspirin (Verified Adverse Reaction, Unknown, GI, 12/23/16) codeine (Verified Adverse Reaction, Unknown, GI, 12/23/16) Uncoded Allergies: ANTI-INFLAMMATORY AGENTS OPH/OTIC (Allergy, Unknown, 08/21/04) Scheduled Diltiazem ER (Cardizem CD) 180 Mg Cap.er.24h 180 MG PO DAILY Famotidine (Pepcid) 20 Mg Tablet 20 MG PO BID Folic Acid (Folic Acid) 1 Mg Tablet 1 MG PO DAILY Morphine Sulfate ER (MS Contin) 30 Mg Tablet.er 30 MG PO BID Multivitamin (Once Daily) 1 Each Tablet 1 EACH PO DAILY Nicotine 21 mg/24 hr Patch (Nicotine 21 mg/24 hr Patch) 1 Each Patch.dysq 1 PATCH TRANSDERM DAILY Phenytoin Sodium ER (Dilantin) 100 Mg Capsule 100 MG PO AM Phenytoin Sodium ER (Dilantin) 100 Mg Capsule 300 MG PO HS Thiamine Mononitrate (Vitamin B-1) 100 Mg Tablet 100 MG PO DAILY Scheduled PRN Acetaminophen (Acetaminophen) 325 Mg Capsule 650 MG PO q4 hours PRN PRN For Pain Albuterol HFA (Proair HFA) 8.5 Gm Hfa.aer.ad 2 PUFFS INHALATION Q4H PRN PRN For Shortness of Breath Bisacodyl (Dulcolax Rectal) 10 Mg Supp.rect 10 MG RC DAILY PRN PRN For Constipation Docusate Sodium (Colace) 100 Mg Capsule 100 MG PO DAILY PRN PRN For Constipation Hydrocodone-Acetaminophen 5-325 mg (Hydrocodone-Acetaminophen 5-325 mg) 1 Each Tablet 1 TABLET PO Q4H PRN PRN For Pain Magnesium Hydroxide (Milk of Magnesia) 400 Mg/5 Ml Oral.susp 400 MG PO DAILY PRN PRN For Constipation Ondansetron ODT (Zofran ODT) 4 Mg Tablet 4 MG PO Q4H PRN PRN For Nausea General Time Seen by MD: 00:43 Chief Complaint Other (Imbalance) Hx Obtained From: Spouse Unable to Obtain Hx: Patient condition, Mental status Arrived By: Ambulance Sudden in Onset?: No Onset Occurred: 1 week ago Symptom Duration: Since onset Location: : Abdomen Quality: Painful Severity: Current: Moderate Severity: Maximum: Moderate Pertinent Negative: Relieved by nothing Related History: Reports Atrial fibrillation, Reports Hypertension Recent Healthcare: No recent doctor visit Past Medical History Past Medical History Bowel obstruction Chronic back pain Pancreatitis Epilepsy Diverticulitis Gastroesphageal Reflux Heartburn AFib on Warfarin Hypertension Displaced angulated left femoral neck fracture COPD Reports: COPD Past Surgical History Whipple Surgery Left hip hemiarthroplasty on April 24, 2016 Reports: Appendectomy, Cholecystectomy Reports: Back/neck surgery Smoking History Current Every Day Smoker Social History Alcohol Use: >5 per day Other Social History: Good social support, , Local resident Ambulatory Status Independent Review of Systems Unable to Obtain ROS Patient condition, Mental status Physical Exam Initial Vital Signs Vital Signs (First) Date Time Temp Pulse Resp B/P Pulse Ox O2 Delivery O2 Flow Rate FiO2 12/23/16 00:41 36.8 84 18 145/85 98 Room Air Initial VS: Reviewed, Unavailable (none on chart) Skin: Warm, Dry Psychiatric: Mood/affect normal, Behavior normal General/Constitutional: Awake, Alert Patient's eyes are open but he is slow to respond Head / Eyes: Normocephalic Bandage over forehead, otherwise head atraumatic Respiratory / Chest: Breath sounds NL, Breath sounds = bilat, No respiratory distress Cardiovascular: Heart rate NL, Regular rhythm, Heart sounds NL Mental Status: Positive: Disoriented to place, Disoriented to time NEUROLOGIC: Mild asterixis but no focal deficits Abdomen: Soft Intimate but nonspecific tenderness, not reproducible Lower Extremity / Pelvis / MS: Atraumatic Edema to bilateral legs Interpretation & Diagnostics Lab Results Interpretation Result Diagram: 12/23/16 0155 12/23/16 0155 Test 12/23/16 01:55 12/23/16 02:18 White Blood Count 7.9th/mm3 (3.8-10.1) Red Blood Count 4.03mil/mm3 (4.40-5.80) Hemoglobin 11.2g/dL (13.8-17.2) Hematocrit 33.7% (41.0-50.0) Mean Corpuscular Volume 83.6fL (81-100) Mean Corpuscular Hemoglobin 27.8pg (27.0-35.0) Mean Corpuscular Hemoglobin Concent 33.2% (32.0-37.0) Red Cell Distribution Width 19.1% (12.3-15.4) Platelet Count 306bil/L (150-400) Neutrophils (%) (Auto) 69.0% (40-74) Lymphocytes (%) (Auto) 19.8% (14-46) Monocytes (%) (Auto) 8.9% (4-12) Eosinophils (%) (Auto) 1.5% (0-5) Basophils (%) (Auto) 0.5% (0-3) Prothrombin Time 11.4sec (8.1-12.5) Prothromb Time International Ratio 1.06ratio Sodium Level 138mEq/L (134-144) Potassium Level 3.1mEq/L (3.5-5.2) Chloride Level 100mEq/L (97-108) Carbon Dioxide Level 22mmol/L (18-29) Blood Urea Nitrogen 6mg/dL (8-27) Creatinine 0.53mg/dL (0.76-1.27) Estimat Glomerular Filtration Rate 163mL/min (>59) Glucose Level 106mg/dL (60-99) Calcium Level 7.8mg/dL (8.5-10.1) Total Bilirubin 0.6mg/dL (0.0-1.2) Aspartate Amino Transf (AST/SGOT) 124U/L (0-50) Alanine Aminotransferase (ALT/SGPT) 61U/L (0-44) Alkaline Phosphatase 219U/L (25-160) Ammonia 69ug/dL (18-53) Total Protein 5.6g/dL (6.4-8.4) Albumin 2.7g/dL (3.4-5.0) Hold [place] Top Tube Received (Received) Phenytoin (Dilantin) Level 24.4uG/mL (10.0-20.0) Alcohols < 10mg/dL (0-10) Urine Color Yellow (YELLOW) Urine Appearance Clear (CLEAR,HAZY) Urine pH 5.5 (5.0-8.0) Urine Specific [place] 1.005 (1.003-1.035) Urine Protein Negativemg/dL (NEG,TRACE) Urine Glucose (UA) Negativemg/dL (NEGATIVE) Urine Ketones Negativemg/dL (NEGATIVE) Urine Occult Blood Negative (NEGATIVE) Urine Nitrite Negative (NEGATIVE) Urine Bilirubin Negative (NEGATIVE) Urine Urobilinogen Normalmg/dL (NORMAL) Urine Leukocyte Esterase Negative (NEGATIVE) Urine RBC 0-2/hpf (0-2) Urine WBC 0-5/hpf (0-5) Urine Epithelial Cells Occasional/hpf (NONE-MOD) Urine Crystals None seen (NONE SEEN) Urine Bacteria None/hpf (NONE-FEW) Urine Hyaline Casts None/lpf (NONE) Urine Granular Casts None seen (NONE SEEN) Urine Waxy Casts None seen (NONE SEEN) Urine Red Blood Cell Casts None seen (NONE SEEN) Urine White Blood Cell Casts None seen (NONE SEEN) Urine Mucus None seen (None Seen) Urine Trichomonas None seen (NONE SEEN) Urine Yeast None (NONE SEEN) Urinalysis Comment None Urine Culture Reflexed Not indicated Lab Results Interpretation: CBC normal CMP mild hyper hypokalemia, normal glucose, mild LFT abnormalities with chronic liver disease Ammonia mildly elevated, but not significantly so similar to previous levels Dilantin level supratherapeutic, likely toxic and can explain clinical presentation UA negative X-Ray Chest Interpretation Chest Xray Interpretation: Nothing acute View: Portable, 1 view Interpretation / Wet Read by: Wet read ED physician Re-Eval/Medical Decision Med Decision/Clinical Course This is a 71-year-old male some chronic liver disease, recently discharged from a halfway facilities return home or is getting care from a assistance of home health care, but is brought in by the is he has become increasingly ataxic, fallen twice in the past couple days has been too weak and she thought it might be the ondansetron that is been taking intermittently for chronic nausea and vomiting, but states that she stopped because his balance is so terrible. And she simply cannot get him to move safely, so brought him in. Patient's chronically confused, he does not know what year it is he cannot provide a very good history. His only complaint is his chronic back pain. Reported fevers, chills, cough, abdominal pain, nausea, vomiting, GI blood loss , dysuria or recent infection. Otherwise not aware of any new recent medication changes, reports he has been on the same dose of Dilantin for some time-but cannot recall the last time a level was checked. On Exam, the patient slightly slow, slow to respond, is confused, has trace asterixis, but has no focal deficits. Laboratory evaluation is notable for significant supratherapeutic Dilantin level which is adequate to explain ataxia, potentially be some component of the nausea and vomiting and spitting occurring intermittently. Worse in the setting of liver disease with poor baseline functioning. At this point the plan is admission, holding the Dilantin and reevaluating. Source of Hx: Old records, EMS Re-Evaluation/Progress : Time of Eval: 02:39 Patient Status: Condition improved Re-Evaluation/Progress Note: Discussed with patient and his lab and x-ray results, diagnosis, and plan for discharge. Follow-up and return to the ER instructions given. Patient agrees with plan for care and all questions were addressed. Consultation : Referral / Consult Name: Roque Rico MD Consulted With: Hospitalist Call Returned at: 02:40 Category Manager: Agrees with eval, Agrees with plan, Accepts admit Differential Diagnosis: Positive: Seizure disorder, Negative: Carbon monoxide poisoning, Cerebrovascular accident, Closed head injury, Congestive heart failure, Delirium tremens, Diabetic ketoacidosis, Epidural hematoma, EtOH intoxication, Hyperthermia, Hyponatremia, Hypoperfusion , Hypotension, Hypothermia, Hypoxemia, Intracerebral hemorrhage, Sepsis, Subarachnoid hemorrhage, Urinary tract infection Counseled Regarding: Diagnosis, Lab results, Need for follow-up, When/why to return to ED Patient Discharge & Departure Impression: Primary Impression: Dilantin toxicity Encounter type: initial encounter Injury intent: accidental or unintentional Qualified Code: T42.0X1A - Poisoning by hydantoin derivatives, accidental (unintentional), initial encounter Disposition: ADMITTED TO HOSPITAL Discharge Condition All VS Reviewed: Yes Condition: Improved Referrals: [facility] Residency Clinic (PCP) Scribe Attestation Portions of this note were transcribed by Nargis Mcfarlane. I, Dr. Alvarez, personally performed the history, physical exam, and medical decision-making; I reviewed and confirmed the accuracy of the information in the transcribed note. Signed by: Yolanda Milton, 12/23/2016, 02:55 copies to: [facility] Branden Alvarez MD December 23, 2016 00:43 NARGIS MCFARLANE December 23, 2016 01:06
[2016-12-23 02:01] LABS: BASOPHILS % (AUTO) 0.5 % (0-3); EOSINOPHILS % (AUTO) 1.5 % (0-5); MONOCYTES % (AUTO) 8.9 % (4-12); Mean Corpuscular Hemoglobin 27.8 pg (27.0-35.0); Mean Corpuscular Volume 83.6 fL (81-100); Platelet Count 306 bil/L (150-400)
[2016-12-23] MEDS ORDERED: Ondansetron 8 mg ODT Tablet PO ONE (02:10)
[2016-12-23 02:18] LABS: INR 1.06 ratio
[2016-12-23 02:21] LABS: APPEARANCE,URINE CLEAR (CLEAR,HAZY); COLOR,URINE YELLOW (YELLOW); PH,URINE 5.5 (5.0-8.0)
[2016-12-23 02:22] LABS: OCCULT BLOOD,URINE NEGATIVE (NEGATIVE); UROBILINOGEN,URINE NORMAL (NORMAL)
[2016-12-23] MEDS ORDERED: HYDROcodone-APAP 5-325 mg Tablet PO ONE (02:40)
--- NOTE | 2016-12-23 03:42 | DRSVH ---
PROCEDURE: CT BRAIN WITHOUT CONTRAST ([id number]) INDICATIONS: Altered LOC, liver dz TECHNIQUE: Noncontrast 4.5 mm thick angled axial sections acquired from the foramen magnum to the vertex, with c oronal reformats. COMPARISON: None. FINDINGS: Image quality: Excellent. CSF spaces: Basal cisterns are patent. No extra-axial fluid collections. The ventricles are symmet phan in size and shape. Brain: No intracranial bleeds or masses. There is cerebral volume loss for age, with resultant vent ricular and sulcal prominence. There are periventricular and deep white matter chronic small vessel ischemic changes. There is intracranial internal carotid artery atherosclerosis. Skull and face: Calvarium and visualized facial bones appear intact, without suspicious lesions. Sinuses: Visualized sinuses and mastoids are clear. IMPRESSION: A mild microvascular atherosclerotic change within the deep white matter of each hemisph ere. No acute disease. Dictated by: Irvin Woods M.D. on 12/23/2016 at 3:40 Approved by: Irvin Woods M.D. on 12/23/2016 at 3:41
[2016-12-23] MEDS ORDERED: Ondansetron 2 mg/mL 2 mL Inj IVPUSH PRN (04:00)
[2016-12-23] MEDS ORDERED: Polyethylene Glycol (PEG) 17 Gm Powder PO PRN (04:00)
[2016-12-23] MEDS ORDERED: Alum-Mag Hydrox-Simeth 30 mL Suspension PO PRN (04:00)
[2016-12-23] MEDS ORDERED: Potassium Chloride 20 mEq SR Tablet PO ONE (04:25)
--- NOTE | 2016-12-23 04:28 | PCM.HPMED ---
Subjective Date of Service December 23, 2016 Primary Provider: Admitting Physician: Roque Rico MD Primary Care Physician: Anuj,[facility] Residency Attending Physician: Roque Rico MD Chief Complaint: weakness History of Present Illness: 71-year-old male with history of alcohol abuse in remission, alcoholic hepatitis , seizure disorder, pancreatitis status post Whipple, COPD, and chronic atrial fibrillation not on anticoagulation who presented to the ED by EMS due to increasing weakness and decreasing mentation for 1 week. Patient was recently admitted at this hospital for alcohol abuse and withdrawal. He was subsequently sent to a snf for rehabilitation, and was discharged home one week ago. His partner notes that since arriving home patient has slowly become more confused and "spacey". Today she noted that his gait was unsteady and he kept running into objects. He was having difficulties transferring and appeared to be fairly weak. He was witnessed to have fallen once, but did not lose consciousness or hit his head. Patient denies any fever, shortness of breath, chest pain, increasing cough, or wheezing in the past week. He endorses chronic abdominal pain and back pain from his prior surgeries. He has been compliant in his medication and denies any overdose. He has been sober since October, but continues to smoke daily. In the ED was afebrile with a pulse of 84, respiratory rate of 18, and blood pressure 145/85, 98% on room air. His CBC was unremarkable, but his CMP was pertinent for potassium of 3.1, and ammonia of 69, and elevated transaminases that are at his baseline. He did have a phenytoin level 24.4, and a negative alcohol level. His UA was unremarkable He had a brain CT without contrast that did not show any acute disease, and a portable chest x-ray that was read as no acute disease. Review of Systems: 12 Pt ROS neg except as stated in HPI Allergies Coded Allergies: atenolol (Verified Allergy, Unknown, 12/23/16) methadone (Verified Allergy, Unknown, TAKES OXYCODONE/HYDROCODONE/FENTANYL , 12/23/16) aspirin (Verified Adverse Reaction, Unknown, GI, 12/23/16) codeine (Verified Adverse Reaction, Unknown, GI, 12/23/16) Uncoded Allergies: ANTI-INFLAMMATORY AGENTS OPH/OTIC (Allergy, Unknown, 08/21/04) Home Medications From [facility], Cardizem CD 180 mg capsule,extended release take 1 capsule by oral route every day Dilantin Extended 100 mg capsule take 1 capsule by oral route in the morning and 3 capsules by oral route at bedtime every day famotidine 20 mg tablet take 1 tablet by oral route 2 times every day folic acid 1 mg tablet take 1 tablet by oral route every day melatonin 1 mg tablet Take 0.5 mg every evening for sleep nicotine 14 mg/24 hr daily transdermal patch apply 1 patch by transdermal route every day ondansetron 4 mg disintegrating tablet take 1 tablet by oral route every [address] on top of the tongue where they will dissolve, then swallow oxycodone-acetaminophen 5 mg-325 mg tablet take 1 tablet by oral route every 8 hours as needed warfarin 4 mg tablet take 1 1/2 tablets (6mg) daily except take one tablet (4mg ) on Tuesdays PMH Hypertension Alcohol abuse Alcoholic Hepatitis Chronic atrial fibrillation not on Anticoagulation Closed left hip fracture Seizure disorder Pancreatitis with Pancreatic cancer s/p Whipple procedure. He was on hospice but then survived since then Pt reports history of possible CVA with left sided residual weakness Surgical History Left displaced intracapsular femoral neck fracture s/p drain of left hip abscess Appendectomy Cholecystectomy Whipple procedure Family History Hypertension in several family members Social History Hx Alcohol Use: No Alcoholic Drinks Per Day: QUIT 11/10 Hx Substance Use: No Hx Tobacco Use: Yes (1/2 pack a day) Smoking Status: Current Every Day Smoker Living Arrangement: with Family (discharged from snf 1 week ago) Exam Vital Signs Vital Sign - Last Date Time Temp Pulse Resp B/P Pulse Ox O2 Delivery O2 Flow Rate FiO2 12/23/16 02:48 84 15 151/78 99 Room Air 12/23/16 00:41 36.8 Exam Gen: Well developed elderly male who appears mild lethargic, alert and oriented x 3 HEENT: Nc/At, PERRLA, EOMI, Sclera anicteric, Oropharynx moist and pink Neck: Soft, NT, trachea midline CV; Irregularly Irregular with soft systolic murmur Resp: CTAB, distant lung sounds, No wheezing or rhonchi, normal resp effort Abd: Soft, Non distended, mildly tender to palpation of epigastrium, no guarding , no rebound, no rash MSK: MS grossly intact although LUE and LLE is mildly slower with decreased strength compared to the right, no tender joints Neuro: CN2-12 grossly intact, face symmetric, No tremors or asterixis noted, speaks full sentences Extr: Moderate clubbing of digits, trace peripheral edema noted Skin: Warm, dry. intact Psych: Appropriate mood and affect, linear thought process Lab and Diagnostics Result Diagram: 12/23/1615412/23/16154 X-Rays, CTs and MRIs CXR 1 view No acute disease noted PROCEDURE: CT BRAIN WITHOUT CONTRAST ([id number]) IMPRESSION: A mild microvascular atherosclerotic change within the deep white matter of each hemisphere. No acute disease. Assessment & Plan 71-year-old male with history of alcohol abuse in remission, alcoholic hepatitis , seizure disorder, pancreatitis status post Whipple, COPD, and chronic atrial fibrillation not on anticoagulation who presented to the ED by EMS due to increasing weakness and decreasing mentation for 1 week Likely Metabolic encephalopathy secondary to Dilantin Toxicity, present on admission Patient's decreasing mental status and weakness may be related to his phenytoin toxicity. DDX includes medication overdose, alcohol withdrawal, infection, hepatitis related (Hepatic encephalopathy) Patient symptoms are improving, We will plan to hold Dilantin and monitor overnight. May need titration upon discharge to avoid further toxicity Continue hydrating with IV normal saline Chronic atrial fibrillation, POA Patient not on anticoagulation due to fall and bleeding risk. Rate currently controlled Placed on telemetry for CV monitoring Continue home diltiazem Suspected COPD, POA No shortness of breath or increasing cough or wheezing Patient reports he is out of his inhaler at home Continue home albuterol and refill on discharge Hypokalemia, POA We will replace with 40 of oral potassium Continue to monitor and replenish as needed Left-sided weakness, POA Patient is noticeably weaker in the left side. Reports he may have had a stroke in the past, but is unsure when There is note of a right infarct on previous MRI scan Physical therapy order for evaluation of weakness Chronic pain, POA Secondary to chronic pancreatitis status post Whipple and chronic back pain Oxycodone when necessary for pain Alcoholic hepatitis, POA Transaminases at baseline Avoid hepatic toxic medication Seizure disorder, POA Continue home Dilantin at titrated dose at appropriate time History of alcohol abuse, POA In remission, continue to encourage effort Continue folate and thiamine supplements Tobacco dependence, POA Continue to encourage cessation Nicotine patch when necessary CODE STATUS: Full resuscitation Disposition: Patient is admitted under observation status with length of stay expected to be less than two nights, due to risk of adverse events, medical complexity, and decompensation Pain Evaluation: Adequate Pain Control Resuscitation Status: CPR: Attempt Resuscitation Attending Statement The patient was seen and examined together with Dr. Bustos 12/23 and I agree with the history, exam and plan as outlined in the note above. Harpreet Bustos DO December 23, 2016 03:16 Roque Rico MD December 23, 2016 06:47
[2016-12-23 07:00] LABS: BASOPHILS % (AUTO) 0.5 % (0-3); EOSINOPHILS % (AUTO) 1.8 % (0-5); MONOCYTES % (AUTO) 9.8 % (4-12); Mean Corpuscular Volume 84.4 fL (81-100); NEUTROPHILS % (AUTO) 60.9 % (40-74); Platelet Count 264 bil/L (150-400)
[2016-12-23] MEDS: Diltiazem CD 180 mg ER24 Capsule PO SCH (07:50)
[2016-12-23] MEDS: 0.9% Sodium Chloride 1,000 ML IV SCH ×2 (07:50→13:58)
[2016-12-23] MEDS: Heparin 5,000 Unit/mL Inj SUBQ SCH ×2 (07:51→15:38)
--- NOTE | 2016-12-23 09:05 | DRSVH ---
PROCEDURE: X-RAY CHEST ONE VIEW, PORTABLE ([id number]) INDICATIONS: Altered LOC TECHNIQUE: One view of the chest was acquired. COMPARISON: [facility], CR, XR CHEST 1VW (PORTABLE), 11/12/2016, 4:00. FINDINGS: Surgical changes and devices: None. Lungs and pleura: No pleural effusions or pneumothorax. Lungs are clear. Mediastinum: Mediastinal contours appear normal. Heart size is normal. Bones and chest wall: No suspicious bony lesions. Overlying soft tissues appear unremarkable. IMPRESSION: No acute cardiopulmonary disease. Dictated by: Natanael Ritchie [facility] Interpreted: Gallito Naik MD on 12/23/2016 at 9:05 Transcribed by: CHARLIE on 12/23/2016 at 9:05 Approved by: Gallito Naik M.D. on 12/23/2016 at 9:43
[2016-12-23] MEDS ORDERED: WARF4TAB6 PO (10:03)
[2016-12-24 00:09] VITALS: BP 135/89; PULSE 80; RESP 16; O2SAT 92
[2016-12-24] MEDS: Heparin 5,000 Unit/mL Inj SUBQ SCH ×2 (00:30→08:22)
[2016-12-24 05:42] VITALS: BP 153/92; PULSE 65; RESP 20; O2SAT 96
[2016-12-24 06:24] LABS: BASOPHILS % (AUTO) 0.4 % (0-3); EOSINOPHILS % (AUTO) 2.9 % (0-5); MONOCYTES % (AUTO) 9.3 % (4-12); Mean Corpuscular Volume 85.5 fL (81-100); Platelet Count 230 bil/L (150-400)
[2016-12-24 08:00] VITALS: PULSE 91
[2016-12-24] MEDS: Diltiazem CD 180 mg ER24 Capsule PO SCH (08:21)
[2016-12-24 09:46] VITALS: BP 131/82; PULSE 79; RESP 18; O2SAT 98
--- NOTE | 2016-12-24 12:07 | PCM.DC.MED ---
Discharge Summary Date of Service December 24, 2016 Dates of Hospitalization Date of Hospital Admission December 23, 2016 at 03:00 Date of Discharge: December 24, 2016 Providers: Admitting Physician: Roque Rico MD Primary Care Physician: ANNA Leslie Residency Attending Physician: Roque Rico MD Diagnosis at Time of Discharge Diagnosis at Time of Discharge #Likely Metabolic encephalopathy secondary to Dilantin Toxicity, present on admission: Now resolved Seizure disorder, POA - Dilantin restarted on discharge decreased to 100 mg by mouth twice a day in place of previous 100 mg a.m. and 300 mg p.m.. - Recommend a follow-up with primary care doctor in 1 week to reassess Dilantin levels and consider further medication adjustments as needed. - Should this medication continue to be difficult to maintain therapeutic level , newer antiepileptic medication may be considered in this case likely with the assistance of neurology programmer analyst consultant in outpatient setting. Chronic atrial fibrillation, POA - Continued home diltiazem Procedures XRay, CTs & MRIs CXR 1 view No acute disease noted PROCEDURE: CT BRAIN WITHOUT CONTRAST ([id number]) IMPRESSION: A mild microvascular atherosclerotic change within the deep white matter of each hemisphere. No acute disease. Brief History As per HPI by Dr. Bustos, "71-year-old male with history of alcohol abuse in remission, alcoholic hepatitis, seizure disorder, pancreatitis status post Whipple, COPD, and chronic atrial fibrillation not on anticoagulation who presented to the ED by EMS due to increasing weakness and decreasing mentation for 1 week. Patient was recently admitted at this hospital for alcohol abuse and withdrawal. He was subsequently sent to a [facility] for rehabilitation, and was discharged home one week ago. His partner notes that since arriving home patient has slowly become more confused and "spacey". Today she noted that his gait was unsteady and he kept running into objects. He was having difficulties transferring and appeared to be fairly weak. He was witnessed to have fallen once, but did not lose consciousness or hit his head. Patient denies any fever, shortness of breath, chest pain, increasing cough, or wheezing in the past week. He endorses chronic abdominal pain and back pain from his prior surgeries. He has been compliant in his medication and denies any overdose. He has been sober since October, but continues to smoke daily. In the ED was afebrile with a pulse of 84, respiratory rate of 18, and blood pressure 145/85, 98% on room air. His CBC was unremarkable, but his CMP was pertinent for potassium of 3.1, and ammonia of 69, and elevated transaminases that are at his baseline. He did have a phenytoin level 24.4, and a negative alcohol level. His UA was unremarkable He had a brain CT without contrast that did not show any acute disease, and a portable chest x-ray that was read as no acute disease." Hospital Course #Likely Metabolic encephalopathy secondary to Dilantin Toxicity, present on admission Patient's decreasing mental status and weakness may be related to his phenytoin toxicity. DDX includes medication overdose, alcohol withdrawal, infection, hepatitis related (Hepatic encephalopathy) Patient symptoms are improving, We will plan to hold Dilantin and monitor overnight. May need titration upon discharge to avoid further toxicity Continued hydrating with IV normal saline with good response By day 1 of hospitalization patient's mentation had normalized, addition to stable Dilantin level now in therapeutic range. Patient felt completely back to normal self ready to go home. Seizure disorder, POA Continue home Dilantin at titrated dose at appropriate time - Dilantin restarted on discharge decreased to 100 mg by mouth twice a day in place of previous 100 mg a.m. and 300 mg p.m.. - Recommend a follow-up with primary care doctor in 1 week to reassess Dilantin levels and consider further medication adjustments as needed. - Should this medication continue to be difficult to maintain therapeutic level , newer antiepileptic medication may be considered in this case likely with the assistance of neurology programmer analyst consultant in outpatient setting. Chronic atrial fibrillation, POA Patient not on anticoagulation due to fall and bleeding risk. Rate remained controlled Placed on telemetry for CV monitoring which showed abnormalities overnight, Continued home diltiazem Suspected COPD, POA No shortness of breath or increasing cough or wheezing Patient reports he is out of his inhaler at home Continue home albuterol and refill on discharge Hypokalemia, POA: Only of mild severity on discharge high potassium foods recommended such as 1-2 bananas daily. In addition to follow-up in 1-2 weeks on discharge to further assess electrolyte status. Left-sided weakness, POA Patient is noticeably weaker in the left side. Reports he may have had a stroke in the past, but is unsure when There is note of a right infarct on previous MRI scan Physical therapy order for evaluation of weakness; cleared for home discharge Chronic pain, POA Secondary to chronic pancreatitis status post Whipple and chronic back pain Oxycodone when necessary for pain Alcoholic hepatitis, POA Transaminases at baseline Avoid hepatic toxic medication History of alcohol abuse, POA In remission, continue to encourage effort Continue folate and thiamine supplements: No evidence of macrocytosis on blood studies Tobacco dependence, POA: Continue to encourage cessation: Nicotine patch when necessary provided for hospital stay Exam Vital Signs (Last) Date Time Temp Pulse Resp B/P Pulse Ox O2 Delivery O2 Flow Rate FiO2 12/24/16 11:38 Room Air 12/24/16 09:46 36.6 79 18 131/82 98 Test 12/23/16 01:55 12/23/16 02:18 12/23/16 16:55 12/24/16 06:10 Prothrombin Time 11.4sec (8.1-12.5) Prothromb Time International Ratio 1.06ratio Ammonia 69ug/dL (18-53) Hold [place] Top Tube Received (Received) Alcohols < 10mg/dL (0-10) Urine Color Yellow (YELLOW) Urine Appearance Clear (CLEAR,HAZY) Urine pH 5.5 (5.0-8.0) Urine Specific [place] 1.005 (1.003-1.035) Urine Protein Negativemg/dL (NEG,TRACE) Urine Glucose (UA) Negativemg/dL (NEGATIVE) Urine Ketones Negativemg/dL (NEGATIVE) Urine Occult Blood Negative (NEGATIVE) Urine Nitrite Negative (NEGATIVE) Urine Bilirubin Negative (NEGATIVE) Urine Urobilinogen Normalmg/dL (NORMAL) Urine Leukocyte Esterase Negative (NEGATIVE) Urine RBC 0-2/hpf (0-2) Urine WBC 0-5/hpf (0-5) Urine Epithelial Cells Occasional/hpf (NONE-MOD) Urine Crystals None seen (NONE SEEN) Urine Bacteria None/hpf (NONE-FEW) Urine Hyaline Casts None/lpf (NONE) Urine Granular Casts None seen (NONE SEEN) Urine Waxy Casts None seen (NONE SEEN) Urine Red Blood Cell Casts None seen (NONE SEEN) Urine White Blood Cell Casts None seen (NONE SEEN) Urine Mucus None seen (None Seen) Urine Trichomonas None seen (NONE SEEN) Urine Yeast None (NONE SEEN) Urinalysis Comment None Urine Culture Reflexed Not indicated Phenytoin (Dilantin) Level 18.3uG/mL (10.0-20.0) White Blood Count 5.6th/mm3 (3.8-10.1) Red Blood Count 3.32mil/mm3 (4.40-5.80) Hemoglobin 9.3g/dL (13.8-17.2) Hematocrit 28.4% (41.0-50.0) Mean Corpuscular Volume 85.5fL (81-100) Mean Corpuscular Hemoglobin 28.0pg (27.0-35.0) Mean Corpuscular Hemoglobin Concent 32.7% (32.0-37.0) Red Cell Distribution Width 19.6% (12.3-15.4) Platelet Count 230bil/L (150-400) Neutrophils (%) (Auto) 54.0% (40-74) Lymphocytes (%) (Auto) 33.0% (14-46) Monocytes (%) (Auto) 9.3% (4-12) Eosinophils (%) (Auto) 2.9% (0-5) Basophils (%) (Auto) 0.4% (0-3) Sodium Level 139mEq/L (134-144) Potassium Level 3.4mEq/L (3.5-5.2) Chloride Level 107mEq/L (97-108) Carbon Dioxide Level 23mmol/L (18-29) Blood Urea Nitrogen 7mg/dL (8-27) Creatinine 0.43mg/dL (0.76-1.27) Estimat Glomerular Filtration Rate 208mL/min (>59) Glucose Level 89mg/dL (60-99) Calcium Level 7.7mg/dL (8.5-10.1) Total Bilirubin 0.7mg/dL (0.0-1.2) Aspartate Amino Transf (AST/SGOT) 122U/L (0-50) Alanine Aminotransferase (ALT/SGPT) 52U/L (0-44) Alkaline Phosphatase 196U/L (25-160) Total Protein 4.2g/dL (6.4-8.4) Albumin 2.3g/dL (3.4-5.0) General: Alert, Oriented X3, Cooperative, No Acute Distress Eyes: PERRLA, EOMI Mouth: Mucous Membr Moist/[place] Chest & Lungs: Clear to auscultation & percussion Cardiovascular: Exam Unremarkable Extremities: No cyanosis/clubbing/edma bilat Neurological: Grossly Neurologically Intact Discharge Medications Discharge Medications Diltiazem ER (Cardizem CD) 180 Mg Cap.er.24h 180 MG PO DAILY Prescribed by: TONNY CURRY MD Famotidine (Pepcid) 20 Mg Tablet 20 MG PO BID Prescribed by: DIANA MONTEMAYOR MD Folic Acid (Folic Acid) 1 Mg Tablet 1 MG PO DAILY Prescribed by: TONNY CURRY MD Morphine Sulfate ER (MS Contin) 30 Mg Tablet.er 30 MG PO BID Prescribed by: AKANKSHA NIETO MD Multivitamin (Once Daily) 1 Each Tablet 1 EACH PO DAILY Prescribed by: TONNY CURRY MD Phenytoin Sodium ER (Dilantin) 100 Mg Capsule 100 MG PO AM (Reported) Phenytoin Sodium ER (Dilantin) 100 Mg Capsule 300 MG PO HS (Reported) Thiamine Mononitrate (Vitamin B-1) 100 Mg Tablet 100 MG PO DAILY Prescribed by: TONNY CURRY MD Warfarin Sodium (Warfarin Sodium) 4 Mg Tablet 6 MG PO DAILY (Reported) As needed Albuterol HFA (Proair HFA) 8.5 Gm Hfa.aer.ad 2 PUFFS INHALATION Q4H PRN PRN For Shortness of Breath (Reported) Bisacodyl (Dulcolax Rectal) 10 Mg Supp.rect 10 MG RC DAILY PRN PRN For Constipation (Reported) Docusate Sodium (Colace) 100 Mg Capsule 100 MG PO DAILY PRN PRN For Constipation Prescribed by: KEITH HAQ Magnesium Hydroxide (Milk of Magnesia) 400 Mg/5 Ml Oral.susp 400 MG PO DAILY PRN PRN For Constipation (Reported) Ondansetron ODT (Zofran ODT) 4 Mg Tablet 4 MG PO Q4H PRN PRN For Nausea Prescribed by: KEITH HAQ Followup Plan Disposition: Continue Dilantin at lowered dosage. FU with PCP in 1 week for repeat blood draw ([facility]) Discharge Diet: No restrictions Discharge Activity: Limited until seen by PCP Follow-up with PCP in: 1 week Time spent 45 minutes copies to: [facility] Vital Signs Vital Sign - Last Date Time Temp Pulse Resp B/P Pulse Ox O2 Delivery O2 Flow Rate FiO2 12/24/16 11:38 Room Air 12/24/16 09:46 36.6 79 18 131/82 98 Intake and Output 12/23/16 12/23/16 12/24/16 Cumulative From/Thru 15:00 23:00 07:00 12/23/16 00:41 - 12/24/16 04:09 Intake Total 0 ml 760 ml 760 ml Output Total 0 ml 600 ml 600 ml Balance 0 ml 160 ml 160 ml Intake Oral 0 ml 760 ml 760 ml Output Urine Total 0 ml 600 ml 600 ml Lab and Diagnostics Result Diagram: 12/24/16 0610 12/24/16 0610 Cornell Monte DO December 24, 2016 12:07
[2016-12-24] MEDS ORDERED: ALBU8.5H2 INHALATION (12:17)
[2016-12-24] MEDS ORDERED: PHN100C PO (12:17)
--- NOTE | 2016-12-24 12:20 | PCM.DIMED ---
Discharge Instructions Date of Service December 24, 2016 Dates of Hospitalization December 23, 2016 at 03:00 Discharge Diagnosis Discharge Diagnosis #Likely Metabolic encephalopathy secondary to Dilantin Toxicity, present on admission: Now resolved Seizure disorder, POA - Dilantin restarted on discharge decreased to 100 mg by mouth twice a day in place of previous 100 mg a.m. and 300 mg p.m.. - Recommend a follow-up with primary care doctor in 1 week to reassess Dilantin levels and consider further medication adjustments as needed. - Should this medication continue to be difficult to maintain therapeutic level , newer antiepileptic medication may be considered in this case likely with the assistance of neurology fundraising consultant in outpatient setting. Chronic atrial fibrillation, POA - Continued home diltiazem Diet No restrictions Activity Limited until seen by PCP Patient Instructions Follow-up plan As noted above: Continue all home medications in addition to Dilantin, now taken at altered dosage of 100mg by mouth twice daily. Follow up at [facility] in 1 week for repeat Dilantin level in addition to electrolyte check to ensure your Dilantin level is therapeutic. Call office with any questions of concerns prior, or consider calling 911 or ER presentation if condition again acutely worsens. Follow-up Provider: [facility] Follow-up with PCP in: 1 week Cornell Monte DO December 24, 2016 12:20
== END 2016-12-24 13:30 | disposition home or self-care (01) ==
LOC: SED 00:39 → INTOOBSV 03:00 → MPC 03:00
PROVIDERS: ADMIT Hospitalist; ATTEND Hospitalist
DX: R41.82 Altered mental status, unspecified (principal); R53.1 Weakness; T42.0X1A Poisoning by hydantoin derivatives, accidental (unintentional), initial encounter; G40.909 Epilepsy, unspecified, not intractable, without status epilepticus; I48.2 Chronic atrial fibrillation; F10.21 Alcohol dependence, in remission; K70.10 Alcoholic hepatitis without ascites; K85.90 Acute pancreatitis without necrosis or infection, unspecified; J44.9 Chronic obstructive pulmonary disease, unspecified; E87.6 Hypokalemia; G89.4 Chronic pain syndrome; I10 Essential (primary) hypertension; K21.9 Gastro-esophageal reflux disease without esophagitis; F17.210 Nicotine dependence, cigarettes, uncomplicated; Z79.01 Long term (current) use of anticoagulants; Z79.51 Long term (current) use of inhaled steroids
CPT/HCPCS: 36415; 70450; 71010; 80053; 80185; 81000; 82140; 85025; 85610; 93005; 97116; 97161; 99285; G0378; G0480; G8978; G8979; J1644; J7030

== ENCOUNTER 2017-01-19 22:06 | Inpatient (IN) | payer MEDICARE ==
[~2017-01-19] VITALS: Ht 175.3 cm; Wt 74.8 kg
[~2017-01-19 22:06] MED LIST changes: -ACET325C PO; -HYDR-4003 PO; -NICO1PAT16 TRANSDERM
[2017-01-19 22:10] VITALS: BP 143/97; PULSE 115; RESP 20; O2SAT 98
--- NOTE | 2017-01-19 23:02 | ED.REPORT ---
HPI-Abd Pain M 40 and Over Date of Service January 19, 2017 ED Provider: Hang Martinez MD 71 year old male with a history of Bowel obstruction, Chronic back pain, Pancreatitis, Diverticulitis, Gastroesophageal Reflux, AFib on Warfarin, Hypertension, COPD, EtOH abuse and S/p Whipple who presents to the ER with a worsening of chronic nausea, vomiting and diffuse lower abd pain in the last few weeks. His abd pain was severe 10/10 today. Pt has been on Ondansetron for the last 8 months due to uncontrollable nausea and vomiting. Pt states "I am unable to make it to the bathroom to have a bowel movement". Pt ran out of his pain medicine 4 days ago. Nursing Notes Stated Complaint: ABDOMINAL PAIN Chief Complaint: Male Abdominal Pain Nursing Notes Reviewed: Yes Allergies: Coded Allergies: atenolol (Verified Allergy, Unknown, 12/23/16) methadone (Verified Allergy, Unknown, TAKES OXYCODONE/HYDROCODONE/FENTANYL , 12/23/16) aspirin (Verified Adverse Reaction, Unknown, GI, 12/23/16) codeine (Verified Adverse Reaction, Unknown, GI, 12/23/16) Uncoded Allergies: ANTI-INFLAMMATORY AGENTS OPH/OTIC (Allergy, Unknown, 08/21/04) Scheduled Diltiazem ER (Cardizem CD) 180 Mg Cap.er.24h 180 MG PO DAILY Famotidine (Pepcid) 20 Mg Tablet 20 MG PO BID Folic Acid (Folic Acid) 1 Mg Tablet 1 MG PO DAILY Morphine Sulfate ER (MS Contin) 30 Mg Tablet.er 30 MG PO BID Multivitamin (Once Daily) 1 Each Tablet 1 EACH PO DAILY Phenytoin Sodium ER (Dilantin) 100 Mg Capsule 100 MG PO BID Thiamine Mononitrate (Vitamin B-1) 100 Mg Tablet 100 MG PO DAILY Scheduled PRN Albuterol HFA (Proair HFA) 8.5 Gm Hfa.aer.ad 2 PUFFS INHALATION Q4H PRN PRN For Shortness of Breath Bisacodyl (Dulcolax Rectal) 10 Mg Supp.rect 10 MG RC DAILY PRN PRN For Constipation Docusate Sodium (Colace) 100 Mg Capsule 100 MG PO DAILY PRN PRN For Constipation Magnesium Hydroxide (Milk of Magnesia) 400 Mg/5 Ml Oral.susp 400 MG PO DAILY PRN PRN For Constipation Ondansetron ODT (Zofran ODT) 4 Mg Tablet 4 MG PO Q4H PRN PRN For Nausea General Time Seen by MD: 22:58 Chief Complaint Abdominal pain Hx Obtained From: Patient Arrived By: Walk-in Sudden in Onset?: No Onset Occurred: More than a week ago... Location: : Abdomen lower Quality: Painful Severity: Current: Severe Associated with: Reports: Diarrhea, Nausea, Vomiting Recent Healthcare: Recent doctor visit Similar Sx Previous: Yes Past Medical History Past Medical History Bowel obstruction Chronic back pain Pancreatitis Epilepsy Diverticulitis Gastroesphageal Reflux Heartburn AFib on Warfarin Hypertension Displaced angulated left femoral neck fracture COPD EtOH abuse Reports: COPD Past Surgical History Whipple Surgery Left hip hemiarthroplasty on April 24, 2016 Reports: Appendectomy, Cholecystectomy Reports: Back/neck surgery Smoking History Current Every Day Smoker Social History Alcohol Use: >5 per day Other Social History: Good social support, , Local resident Ambulatory Status Independent Review of Systems Constitutional: Denies: Fever Respiratory: Denies: Shortness of breath GI: Reports: Abdominal pain, Diarrhea, Nausea, Vomiting Complete sys rev & neg: except as marked. Physical Exam Initial Vital Signs Vital Signs (First) Date Time Temp Pulse Resp B/P Pulse Ox O2 Delivery O2 Flow Rate FiO2 01/19/17 22:10 36.4 115 20 143/97 98 Room Air Initial VS: Reviewed Head / Eyes: Atraumatic, Normocephalic, PERRL Skin: Warm, Dry, No cyanosis Neurologic: Alert, Oriented General/Constitutional: Awake, Alert Appearance / Presentation: Positive: Intoxicated (EtOH on breath) Slurring words Respiratory / Chest: Breath sounds NL, Breath sounds = bilat, No respiratory distress, No rales, No rhonchi, No wheezing Cardiovascular: Heart rate NL, Regular rhythm, Heart sounds NL, Peripheral circulation NL Lower Ext Edema: Positive: Bilateral 1+ (L greater than R), Pitting Abdomen: No guarding, No palpable mass Tenderness/Guarding/Rebound: Positive: Tender diffuse Back: Atraumatic, Full range of motion Interpretation & Diagnostics Lab Results Interpretation Test 01/19/17 23:10 Hold Purple Top Tube Received (Received) Hold Blue Top Tube Received (Received) Hold [place] Top Tube Received (Received) Hold [place] Top Tube Received (Received) Re-Eval/Medical Decision Med Decision/Clinical Course According to the prescription drug monitoring program he received oxycodone/ acetaminophen 5/325 #120 tablets on January 06 and ran out on January 16 or earlier. This of course means that he was taking an average of 12 per day. He is also been drinking heavily recently. Before I leave the room his final request is: "Doc,can I just have a couple pain pills". I told him we would have to wait until blood testing results are available for review and final determination regarding this. Discharge & Departure Shift Change Sign-Out Patient Care Transferred: Yes Discussed Complaint(s): Yes Laboratory Evaluation: Ordered, not yet done Vital Signs - All Vital Signs Date Time Temp Pulse Resp B/P Pulse Ox O2 Delivery O2 Flow Rate FiO2 01/19/17 22:10 36.4 115 20 143/97 98 Room Air )( All Prior VS Reviewed: Yes Referrals: [facility] (PCP) Care Transferred to: Dr. Apolinar Almendarez Care Transferred at: 23:18 Scribe Attestation Portions of this note were transcribed by Monalisa Quintana. I, (Dr. Martinez) personally performed the history, physical exam and medical decision-making; I reviewed and confirmed the accuracy of the information in the transcribed note. Signed by: Monalisa Quintana. Yolanda, 01/19/2017, 0933 copies to: HELEN MAC Kirk H MD January 19, 2017 23:01 Monalisa Quintana January 19, 2017 23:08
[2017-01-19] MEDS ORDERED: 0.9% Sodium Chloride 1,000 ML IV ONE (23:15)
[2017-01-19] MEDS ORDERED: Pantoprazole 4 mg/mL 10 mL Inj IVPUSH ONE (23:15)
[2017-01-20] VITALS (10 sets, daily range): BP systolic 125–155; BP diastolic 82–113; PULSE 82–121; RESP 16–27; O2SAT 93–97
[2017-01-20] MEDS: Ondansetron 2 mg/mL 2 mL Inj IVPUSH PRN ×2 (00:05→10:27)
[2017-01-20 00:14] LABS: BASOPHILS % (AUTO) 0.5 % (0-3); EOSINOPHILS % (AUTO) 0.7 % (0-5); MONOCYTES % (AUTO) 6.8 % (4-12); Mean Corpuscular Hemoglobin 29.3 pg (27.0-35.0); Mean Corpuscular Volume 87.9 fL (81-100); NEUTROPHILS % (AUTO) 68.6 % (40-74); Platelet Count 206 bil/L (150-400)
[2017-01-20 00:21] LABS: INR 1.43 ratio
[2017-01-20 00:37] LABS: Magnesium 1.5 mg/dL (1.6-2.6)
[2017-01-20 00:53] LABS: APPEARANCE,URINE CLEAR (CLEAR,HAZY); COLOR,URINE YELLOW (YELLOW); OCCULT BLOOD,URINE NEGATIVE (NEGATIVE); PH,URINE 6.5 (5.0-8.0); UROBILINOGEN,URINE NORMAL (NORMAL)
[2017-01-20] MEDS ORDERED: Piperacillin-Tazo 3.375 Gm Inj 3.375 GM in Dextrose 5% Minibag Plus 50 ML IV ONE (01:00)
--- NOTE | 2017-01-20 03:40 | PCM.EDPN ---
ED Note Date of Service Jan 20, 2017 Procedures Central Line Placement : Central Line Placement Note: Asked by Dr Almendarez to assist with venous access Time: 03:39 Procedure Performed by: ED physician Consent / Setup / Site Prep: Informed consent provided Skin Preparation Agent: Hibiclens - Chlorhexidine Local Anesthesia: Lidocaine 1% Side / Location / Ultrasound: Internal jugular right, Ultrasound assisted Catheter / Lumen / Technique: Triple lumen, Seldinger technique, Good blood return, Secured w catheter device Central Line Tip Location: Cath tip good position in the SVC Post-Procedure / Complications: Dressing placed, CXR neg for pneumothorax, Tolerated procedure well, Patient stable Shae Robledo MD Jan 20, 2017 03:40
[2017-01-20] MEDS: HYDROmorphone 0.5 mg/0.5 mL iSecure Syringe IVPUSH PRN ×7 (03:44→23:11)
[2017-01-20] MEDS ORDERED: 0.9% Sodium Chloride 1,000 ML IV ONE (04:35)
[2017-01-20] MEDS ORDERED: KCl 40 mEq/100 mL (CENTRAL) 40 MEQ in IV Premix 1 EACH IV ONE (05:20)
--- NOTE | 2017-01-20 09:31 | DRSVH ---
PROCEDURE: CT ABDOMEN AND PELVIS WITH CONTRAST ([id number]) INDICATIONS: abd pain, elev WBC and lactic acid TECHNIQUE: After the administration of intravenous contrast, 5 mm thick sections acquired from the diaphragm to the symphysis. 5 mm coronal and sagittal reformats were acquired. For radiation dose reduction, the following was used: automated exposure control, adjustment of mA and/or kV according to patient siz e. COMPARISON: [facility], CT, ABD/PELVIS W/CON (PN), 03/30/2011, 10:44. FINDINGS: Image quality: Excellent. ABDOMEN: Lung bases: Small left pleural effusion with adjacent atelectasis. Trace pericardial fluid. Trace rig ht pleural fluid Solid organs: Fatty infiltration of the liver. There is also presumed central pneumobilia. The spleen is grossly unremarkable. Gallbladder surgically absent. Biliary system is non dilated. Pancreas d emonstrates numerous calcifications and atrophy in keeping with chronic pancreatitis. No adrenal nod ules. Bilateral renal vascular calcifications. No hydronephrosis Peritoneum and bowel: There is moderate ascites. No definite free air. No bowel obstruction seen. Shepherd ited evaluation in the absence of oral contrast and the presence of ascites. Appendix appears grossly normal. The rectum is decompressed. Postsurgical changes presumably from gastric bypass. There is po melany defined presumable thickening of the ascending colon suggestive of colitis Nodes and vessels: No retroperitoneal or mesenteric adenopathy by size criteria. Aorta and inferior vena cava are normal in size. There are vascular aortic calcifications Miscellaneous: There is a midline ventral hernia containing a loop of bowel without evidence of small bowel obstruction. PELVIS: Genitourinary: Bladder wall thickness is normal. Miscellaneous: No inguinal hernias or adenopathy. Bones: Diffuse osteopenia. Multilevel discogenic changes. No suspicious bony lesions. No vertebral body compression fractures. IMPRESSION: Poorly-defined proximal ascending colon wall thickening suggestive of nonspecific colitis (infectious , inflammatory or ischemic). Please correlate clinically. As clinically warranted, followup with endo scopy to exclude superimposed colonic mass lesion could be performed after the patient's acute episod e has resolved. Ventral abdominal wall hernia containing a loop of bowel however no definite small bowel destruction. Normal-appearing appendix. Moderate ascites. Hepatic steatosis, with incidentally noted pneumobilia. Small bilateral pleural effusions, left greater than right with adjacent atelectasis. Dictated by: Brayan Vazquez M.D. on 01/20/2017 at 9:21 Approved by: Brayan Vazquez M.D. on 01/20/2017 at 9:29
--- NOTE | 2017-01-20 09:41 | DRSVH ---
PROCEDURE: X-RAY CHEST ONE VIEW, PORTABLE ([id number]) INDICATIONS: 71-year-old male with central line placement. TECHNIQUE: One view of the chest was acquired. COMPARISON: [facility], CR, XR CHEST 1VW (PORTABLE), 12/23/2016, 2:18. [facility], CR, XR CHEST 1VW (PORTABLE), 11/12/2016, 4:00. [facility], CR, XR CHEST 1VW, 2015, 18:28. FINDINGS: Surgical changes and devices: New right internal jugular central venous catheter is present, with tip in the lower superior vena cava. Lungs and pleura: No pleural effusions or pneumothorax. Lungs are clear. Mediastinum: Mediastinal contours appear normal. Heart size is normal. Bones and chest wall: No suspicious bony lesions. Overlying soft tissues appear unremarkable. IMPRESSION: New right internal jugular central venous catheter is in expected position. No pneumothor ax. Dictated by: Emanuel Machado M.D. on 01/20/2017 at 9:39 Approved by: Emanuel Machado M.D. on 01/20/2017 at 9:39
[2017-01-20] MEDS ORDERED: HYDROmorphone 0.5 mg/0.5 mL iSecure Syringe IVPUSH PRN (10:15)
--- NOTE | 2017-01-20 10:42 | DRSVH ---
PROCEDURE: MR ABDOMEN MRCP INDICATIONS: abd pain, pneumobilia, elev WBC and lactic acid TECHNIQUE: Coronal HASTE through the abdomen, axial 2-D FLASH in- and [id number], and breath-hold T2 FSE with fat saturation through the biliary system and pancreas. Oblique coronal and axial thin-slice HASTE, radial thick-slab HASTE centered on the extrahepatic bile ducts. Intravenous secretin: Not requested. COMPARISON: [facility], CT, CT ABD PELVIS W CON, 01/20/2017, 1:32. FINDINGS: Image quality: Excellent. Pancreas and biliary system: Intra- and extra-hepatic biliary ducts are non dilated. Pancreas is no rmal in morphology, without adjacent soft tissue edema. Pancreatic duct is normal in caliber, withou t developmental anomalies and the pancreatic parenchyma is atrophic as was previously the case. Gall bladder appears surgically absent. Other solid organs: Liver and spleen are normal in size. The liver appears fatty infiltrated No adr enal nodules. Both kidneys are normal in size, without hydronephrosis. Nodes and vessels: No retroperitoneal or mesenteric adenopathy by size criteria. Aorta and inferior vena cava are normal in size. Bowel and peritoneum: Unenhanced bowel loops are normal in caliber. There is moderate free fluid as was seen during CT scanning earlier same day. Lung bases: Small bilateral basal pleural effusions, scant on the right and mild on the left. Heart size is normal. Bones and soft tissues: A previously identified ventral hernia that was present in the supraumbilical midline is again seen, without evidence of bowel incarceration or strangulation.. Bone marrow is of normal overall signal. IMPRESSION: No biliary ductal calculus or distention found. Pancreatic duct does not appear distende d. Relative pancreatic atrophy, no pancreatic mass identified. Moderate ascites, small bilateral pleural effusions. No abscess found. Dictated by: Irvin Woods M.D. on 01/20/2017 at 10:27 Approved by: Irvin Woods M.D. on 01/20/2017 at 10:41
[2017-01-20] MEDS ORDERED: NICO1PAT5 TRANSDERM (11:36)
[2017-01-20] MEDS ORDERED: OXYC-407 PO (11:37)
[2017-01-20] MEDS ORDERED: 0.9% Sodium Chloride 1,000 ML IV SCH ×2 (12:07→12:19)
[2017-01-20] MEDS ORDERED: Ondansetron 2 mg/mL 2 mL Inj IVPUSH PRN ×2 (12:10→12:20)
[2017-01-20] MEDS ORDERED: Alum-Mag Hydrox-Simeth 30 mL Suspension PO PRN (12:10)
[2017-01-20] MEDS ORDERED: Polyethylene Glycol (PEG) 17 Gm Powder PO PRN (12:10)
--- NOTE | 2017-01-20 12:43 | NUR ---
Admit [facility] [place] rm 3022 From ED Alert and oriented pt arrived to unit on hospital bed. C/o "rotten pain, nausea for months, chronic diarrhea" 3 Lumen IJ patent on R side. Bed in low position, upper 2 rails up, call light in reach. Pt oriented to room and facility. All questions answered. at bedside. VSS.
--- NOTE | 2017-01-20 12:56 | PCM.HPMED ---
Subjective Date of Service Jan 20, 2017 Primary Provider: Admitting Physician: Cornell Monte DO Primary Care Physician: Clinic,[facility] Residency Attending Physician: Cornell Monte DO Chief Complaint: Abdominal pain History of Present Illness: Patient is a 71-year-old male past medical history significant for chronic obstructive pulmonary disease, alcohol dependence in remission with acute exacerbation due to abdominal pain, pancreatitis, diverticulitis with history of small bowel obstruction requiring open surgical decompression, presenting to the emergency room yesterday evening with refractory abdominal pain which has been worsening over the past month but became much worse over the past couple of days. He has denied any history of fever chills or sweats. His stooling pattern has been regular but he notes a predominance of diarrhea especially over the past few days, and at times he experiences prolonged periods of constipation. Nausea and addition to abdominal pain has been present for some time, is been utilizing Zofran for the last many months to help control nausea but is only partially effective. He has been following with his PCP to determine cause but as of yet has no diagnosis. Patient has atrial fibrillation and taking warfarin therapy however due to the persistently supratherapeutic INRs is recently discontinued this medication. Emergency room evaluation was essentially unremarkable, did demonstrate a moderate amount of ascites but can identify no obvious cause of patient's abdominal pain. Lab studies were significant for a lactic acidosis and med surge criteria, further supporting evidence that there is some active process at work yet to be identified. Lipase level was obtained but within normal limits. Imaging studies excepting ascites demonstrated no acute changes liver, pancreas, or other which could account for patient's acute abdominal symptoms. My evaluation when patient been transferred to hospital floor, he noted some improvement in abdominal symptoms since his ER treatment, but noted discomfort was still certainly present. Denies any chest pains or current shortness of breath, overdose of COPD and will become out of breath with exertion at baseline. He also notes his nausea is currently in relatively good control, he has a small appetite and says he may be a lead something. No other acute complaints at this time. Denies current fever chills or sweats. Stool pattern as described above but he denies any recent history of bloody stool or dark or tarry stool. He has a history of seizure disorder but has had none in many years. Has a history of low back pain but this is stable at this time, not in acute exacerbation. Review of Systems: A 10 point review of systems was conducted and entirely negative excepting pertinent positives and negatives included above history of present illness Allergies Coded Allergies: atenolol (Verified Allergy, Unknown, 12/23/16) methadone (Verified Allergy, Unknown, TAKES OXYCODONE/HYDROCODONE/FENTANYL , 12/23/16) aspirin (Verified Adverse Reaction, Unknown, GI, 12/23/16) codeine (Verified Adverse Reaction, Unknown, GI, 12/23/16) Uncoded Allergies: ANTI-INFLAMMATORY AGENTS OPH/OTIC (Allergy, Unknown, 08/21/04) Home Medications Diltiazem ER (Cardizem CD) 180 Mg Cap.er.24h 180 MG PO DAILY Famotidine (Pepcid) 20 Mg Tablet 20 MG PO BID Folic Acid (Folic Acid) 1 Mg Tablet 1 MG PO DAILY Morphine Sulfate ER (MS Contin) 30 Mg Tablet.er 30 MG PO BID Multivitamin (Once Daily) 1 Each Tablet 1 EACH PO DAILY Phenytoin Sodium ER (Dilantin) 100 Mg Capsule 100 MG PO BID Thiamine Mononitrate (Vitamin B-1) 100 Mg Tablet 100 MG PO DAILY Scheduled PRN Albuterol HFA (Proair HFA) 8.5 Gm Hfa.aer.ad 2 PUFFS INHALATION Q4H PRN PRN For Shortness of Breath Bisacodyl (Dulcolax Rectal) 10 Mg Supp.rect 10 MG RC DAILY PRN PRN For Constipation Docusate Sodium (Colace) 100 Mg Capsule 100 MG PO DAILY PRN PRN For Constipation Magnesium Hydroxide (Milk of Magnesia) 400 Mg/5 Ml Oral.susp 400 MG PO DAILY PRN PRN For Constipation Ondansetron ODT (Zofran ODT) 4 Mg Tablet 4 MG PO Q4H PRN PRN For Nausea PMH Bowel obstruction Chronic back pain Pancreatitis Epilepsy Diverticulitis Gastroesphageal Reflux AFib not on Warfarin due to bleeding Hypertension Displaced angulated left femoral neck fracture COPD EtOH abuse Surgical History Whipple Surgery Left hip hemiarthroplasty on April 24, 2016 Appendectomy Cholecystectomy Back/neck surgery Family History Father: rheumatic heart disease Mother: "some type of female" cancer, uterus? Social History Hx Alcohol Use: Yes Hx Substance Use: No Hx Tobacco Use: Yes (1/2 pack a day) Smoking Status: Current Every Day Smoker Exam Vital Signs Vital Sign - Last Date Time Temp Pulse Resp B/P Pulse Ox O2 Delivery O2 Flow Rate FiO2 01/20/17 12:40 36.8 82 16 152/94 95 Room Air Intake and Output 01/19/17 01/19/17 01/20/17 Cumulative From/Thru 15:00 23:00 07:00 01/19/17 22:10 - 01/20/17 04:38 Intake Total 2050 ml 2050 ml Balance 2050 ml 2050 ml Intake IV Total 2050 ml 2050 ml General: Alert, Oriented X3, Cooperative, Moderate Distress Eyes: PERRLA, EOMI Nose: Mucous Membr Moist/[place]field Mouth: Mucous Membr Moist/[place], Other (poor dentition, tobacco stained lips and gums. ) Chest & Lungs: Other (coarse breath sounds diffusely with good airflow in all lung blount. No consolidation, no dullness noted on percussion. ) Cardiovascular: Other (irregular rate with rhythm in the 100s) Abdomen: Tender, Distended, Other (cannot appreciate hepatosplenomegaly. Moderate amount of ascites. Positive bowel sounds. No overt guarding in spite of tenderness. ) Extremities: No cyanosis/clubbing/edma bilat Neurological: Grossly Neurologically Intact, Cranial Nerves 2-12 Intact Lab and Diagnostics Result Diagram: 01/19/17231401/19/172314 Assessment & Plan 71 YO M presenting with refractory abdominal pain of unclear etiology meeting SIRS criteria, admitted for further evaluation and treatment: 1. Abdominal pain - Initial evaluation negative for evidence of acute cause. - CT scan did demonstrate moderate ascites but no other evidence of acute infection. - Pt does drink alcohol however MRCP was negative, lipase negative. - Ultrasound-guided paracentesis was ordered to identify possible infection present ascites which may account for patient's symptoms, however interventional radiology team there is not enough fluid to tap. - We will continue to monitor patient's condition in addition to blood cultures and urine cultures currently pending. - He will be continued on Zosyn initiated in the ER demonstrates criteria and severe abdominal pain. 2. Alcohol dependence - WA protocol initiated - NO evidence of acute withdrawal evident on admission to hospital. 3. Epilepsy - We will continue all medications at this time - Dilantin levels ordered and pending. 4. Transaminitis - Patient certainly appears to have some baseline liver dysfunction due to extensive history of alcohol dependence described above. - He does however note is only been drinking over the last couple days and a benign remission for greater than a month, only restarting due to severe abdominal pains. Based on this series is abdominal pain must be caused by another process given the pain preceded his most recent alcohol use. 5. Tobacco dependence - Patient smokes 1 pack per day is requesting nicotine patch for withdrawal symptoms/cravings Pain Evaluation: Adequate Pain Control GI Prophylaxis: Proton Pump Inhibitor VTE Mechanical Devices: Intermittant Pneumatic CD Resuscitation Status: CPR: Attempt Resuscitation Time spent 55 minutes Cornell Monte DO Jan 20, 2017 12:56
[2017-01-20] MEDS ORDERED: Magnesium Hydroxide 355 mL Oral Suspension PO PRN (14:20)
[2017-01-20] MEDS: Diltiazem CD 180 mg ER24 Capsule PO SCH (14:44)
--- NOTE | 2017-01-20 14:50 | DRSVH ---
PROCEDURE: US ABDOMEN, LIMITED ([id number]) INDICATIONS: need cultures for possible SBP TECHNIQUE: Real-time focused scanning was performed of the abdomen, with image documentation. COMPARISON: [facility], CT, CT ABD PELVIS W CON, 01/20/2017, 1:32. FINDINGS: Trace amount of ascites seen distributed throughout the abdomen and pelvis with intervening bowel noted with real-time ultrasound. The paracentesis was not performed. IMPRESSION: Trace ascites throughout the abdomen and pelvis. No paracentesis was performed secondary to risk for perforating adjacent bowel. Dictated by: Natanael RAY Interpreted: Brayan Vazquez MD on 01/20/2017 at 14:47 Transcribed by: JOVANY on 01/20/2017 at 14:49 Approved by: Brayan Vazquez M.D. on 01/20/2017 at 15:43
[2017-01-20] MEDS ORDERED: Sodium Chloride LOK Flush 10 mL Syringe IVFLUSH PRN ×2 (15:15)
[2017-01-20] MEDS: Phenytoin 100 mg ER Capsule PO SCH ×2 (15:15→20:13)
[2017-01-20 15:27] LABS: BASOPHILS % (AUTO) 0.5 % (0-3); EOSINOPHILS % (AUTO) 0.6 % (0-5); MONOCYTES % (AUTO) 6.8 % (4-12); Mean Corpuscular Hemoglobin 29.7 pg (27.0-35.0); Mean Corpuscular Volume 89.3 fL (81-100); NEUTROPHILS % (AUTO) 81.4 % (40-74); Platelet Count 172 bil/L (150-400)
[2017-01-20] MEDS ORDERED: Albuterol 2.5 mg/3 mL Inhalation Solution NEB PRN (16:00)
--- NOTE | 2017-01-20 18:17 | NUR ---
HR Pt noted to have a HR of 100-120 with some bts up to 140. Message sent to Awaiting further instruction. Pt asymptomatic. Remains in bed, uses call light appropriately.
--- NOTE | 2017-01-20 21:48 | CONS ---
[address] [address] CONSULTATION REPORT PATIENT: NAT HOLLOWAY : 1945 MR#: [id number] ADMIT: 01/20/2017 JOB ID: [id number] DATE OF SERVICE: 01/20/2017 It was a pleasure seeing this patient at [facility] for abdominal pain. HISTORY OF PRESENT ILLNESS: This is a 71-year-old gentleman with history of cirrhosis, assumed to be alcohol. He was most recently admitted in October 2006 for alcohol intoxication and alcohol withdrawal. Despite this, he continues to drink and he says he drinks about six wine coolers a day. He also has chronic pancreatitis with ductal obstruction and he said he had a Whipple surgery. The patient had a CT scan back in 2010 which showed a small amount of pneumobilia, atrophic pancreas with multiple calcifications with partial small bowel obstruction and mild amount of ascites. He also has seizure disorder and was admitted for Dilantin toxicity. He also has a history of AFib. He also has history of chronic pain and has been taking MS Contin and he may have even possibly been taking opiates for the past 20 years. He also has COPD and has multiple pack year history and was on 2 L of oxygen at home, but his insurance would not pay for it, therefore, he stopped taking his oxygen. He also had several admissions to the emergency department because of abdominal pain. He does have underlying chronic abdominal pain as well as nausea. In the past, he has been given Zofran and, at one point, he was on Zofran for up to four months. He came in last night because of persistent nausea, vomiting, and worsening abdominal pain. He is overall a poor historian, but he said for about a year his nausea and vomiting worsened with abdominal pain. Prior to that, he said he has been having this abdominal pain for more than 20 years, but he also has had back pain for 20 years as well. He came to the emergency department, complaining of severe 10/10 abdominal pain. He also has severe nausea, vomiting and he is unable to keep things down, and he was also unable to make it to the bathroom because he was having loose stools. Furthermore, he ran out of all his medication including pain medication for the past four days prior to admission. In the emergency department, he was given antibiotics. They did a CT of the abdomen and pelvis which showed pneumobilia which was present back in 2010, poorly defined proximal ascending colon wall thickening suggestive of colitis, intra-abdominal wall hernia containing loop of bowel, normal-appearing appendix, moderate ascites, fatty liver with incidental pneumobilia and small bilateral pleural effusion and post surgical changes suggestive of gastric bypass, however, he said he had a Whipple's surgery, possibly from his chronic pancreatitis. He also had MRCP done which showed no ductal dilation. Pancreas duct does not appear distended. There is relatively pancreatic atrophy. No pancreatic mass. Moderate ascites. Small pleural effusion noted. No abscess was found. Earlier today, they tried to tap his ascites but was unsuccessful. Since last night, he said he feels better. His nausea is very well under control on medication and his abdominal pain is still there, but he appears to be very comfortable. Even though he complains of diarrhea, he also experiences prolong periods of constipation as well. He was taking Coumadin, but this was discontinued because of supratherapeutic INR intermittently. When I saw him today, he denies any nausea, vomiting, fever, chills, headaches, blurred vision, dizziness, lightheadedness, chest pain, shortness of breath. He does complain of significant back pain and abdominal pain. He said he is having 10/10 pain and he wants more pain medications, but he appears to be comfortable. He appeared to be quite frustrated that he was not getting more pain medications. Denied any blood in the stools, black stools. He said he had normal stools today. He is able to keep food down. Denies any jaundice, blood in the urine. Denies any dysuria. ALLERGIES: Reviewed. MEDICATIONS: At home, he is on diltiazem, famotidine, folic acid, morphine, multivitamins, phenytoin, thiamine, but he said he had ran out of all these medications four days ago. Currently, he is on Dilantin, Dilaudid, nicotine, diltiazem, Percocet, Zofran, milk of magnesia, Pepcid, albuterol, diazepam, thiamine, vitamins, MiraLAX, senna, Zofran, Maalox. PHYSICAL EXAMINATION: Patient is alert, oriented, does appear comfortable. Vitals: Temp 36.8, pulse 82-121, respirations 16, blood pressure 155/98. Head and neck: No icterus, no lymphadenopathy. Lungs: Decreased breath sounds with diffuse wheezing. Cardiovascular: Tachy, irregular, S1-S2. Abdomen: Soft, mild epigastric tenderness without any guarding, rebound, or firmness with mild distention with active bowel sounds. Extremities: No pitting edema of the ankles. Skin shows no jaundice. Radial pulses bilaterally strong and intact. Hemoglobin 11.4, platelets are 172,000, white count is 13,000. INR 1.43. Chemistry: BUN 6, creatinine 0.56, calcium is 7.3, total bili 0.8, AST 66, alk phos 170, total protein 4.8, albumin 2.4. Alcohol is elevated at 223. ASSESSMENT: This is a 71-year-old gentleman with several medical issues. It appeared there was a "gastric bypass" based on the CT but this could be due to Whipple's procedure. He is having a lot of abdominal pain but appeared quite comfortable. He seems to be downplaying his alcohol intake. I would not be surprised if he takes more alcohol than just 6 wine coolers. He does have history of chronic pancreatitis, therefore abdominal pain could be from chronic pancreatitis. Other differential could be peptic ulcer disease. There was a concern about pneumobilia, but in 2010 he had pneumobilia in the past and the fact that he has Whipple's may indicate that there was a manipulation in that area. It is also certainly possible that he came in with abdominal pain because he ran out of pain medications. But, he also has significant back pain as well. He is requesting more pain medications. Will defer this issue to the primary care service. RECOMMENDATION: 1. Abdominal pain could be due to chronic acute pancreatitis. Please obtain fecal elastase level. He needs to stop smoking and drinking alcohol. He needs to eat small meals with significant hydration. Also, would recommend pancreatic enzyme supplements.Please try the patient on Creon 12, test before meals. Also, would try to have him eat smaller meals with lots of hydration. He definitely needs to stop using alcohol and needs to stop smoking. Would also obtain B12 and folate level. Concerned about alcohol withdrawal. 2. He has a history of underlying cirrhosis. Obtain alpha fetoprotein level and ultrasound of the liver for HCC screening. Again, he needs to stop drinking alcohol. He does have ascites and aware that Radiology does no think this is tap-able. 3. CT showing possible thickened bowel wall, i.e. colitis, and he said his last colonoscopy was many years ago. Therefore, will consider EGD and colonoscopy. 4. Finally, transaminases are elevated. Will follow. This could be due to alcohol. Alkaline phosphatase is elevated. Would obtain GGT. 5. Elevated total white count noted. This could indicate that there may be underlying infection. Lactic acidosis still has not normalized. continue with the hydration. I would recommend aggressive hydration, and I would get him ready for EGD and colonoscopy tomorrow. Addendum (01/21/2017) I spoke to the patient and he did not want to proceed with colonoscopy for abd pain and the CT finding; which can be due to colitis or cancer. MTDD
[2017-01-21] VITALS (12 sets, daily range): BP systolic 111–157; BP diastolic 80–100; PULSE 67–95; RESP 16–20; O2SAT 92–96
[2017-01-21] MEDS: HYDROmorphone 0.5 mg/0.5 mL iSecure Syringe IVPUSH PRN ×5 (02:54→20:55)
[2017-01-21 05:18] LABS: BASOPHILS % (AUTO) 0.7 % (0-3); EOSINOPHILS % (AUTO) 1.5 % (0-5); MONOCYTES % (AUTO) 9.3 % (4-12); Mean Corpuscular Hemoglobin 30.3 pg (27.0-35.0); Mean Corpuscular Volume 91.6 fL (81-100); NEUTROPHILS % (AUTO) 68.6 % (40-74); Platelet Count 127 bil/L (150-400)
[2017-01-21] MEDS ORDERED: Vancomycin Inj 1,500 MG in 0.9% Sodium Chloride 500 ML IV ONE (05:25)
[2017-01-21 05:40] LABS: Magnesium 1.3 mg/dL (1.6-2.6)
--- NOTE | 2017-01-21 06:51 | PCM.CONPHA ---
Subjective Date of Service: Jan 21, 2017 Requesting Provider: Roque Rico MD Abdominal pain Reason for Pharmacy Consult: Vancomycin Dosing Objective Vital Signs Date Time Temp Pulse Resp B/P Pulse Ox O2 Delivery O2 Flow Rate FiO2 01/21/17 06:04 36.8 87 16 131/89 95 Room Air 01/21/17 05:32 67 01/21/17 01:27 37.0 95 17 157/91 94 Room Air 01/20/17 20:04 37.0 113 16 138/86 94 Room Air 01/20/17 18:02 36.8 121 16 155/98 94 Room Air 01/20/17 13:23 114 01/20/17 12:40 36.8 82 16 152/94 95 Room Air 01/20/17 12:08 103 24 150/103 93 Room Air 01/20/17 08:55 105 27 137/100 95 01/20/17 06:58 102 19 125/113 95 Room Air Intake and Output 01/19/17 01/20/17 01/21/17 00:00 00:00 00:00 Intake Total 2947 ml Output Total 200 ml Balance 2747 ml Weight (Kilograms): 74.800 Height (Feet): 5 Height (Inches): 9.00 Test 01/19/17 23:10 01/19/17 23:15 01/20/17 00:35 01/20/17 15:10 Hold Purple Top Tube Received (Received) Hold Blue Top Tube Received (Received) Hold [place] Top Tube Received (Received) Hold [place] Top Tube Received (Received) Prothrombin Time 15.4sec (8.1-12.5) Prothromb Time International Ratio 1.43ratio Lipase 3U/L (13-60) Alcohols 223mg/dL (0-10) Urine Color Yellow (YELLOW) Urine Appearance Clear (CLEAR,HAZY) Urine pH 6.5 (5.0-8.0) Urine Specific [place] 1.003 (1.003-1.035) Urine Protein Negativemg/dL (NEG,TRACE) Urine Glucose (UA) Negativemg/dL (NEGATIVE) Urine Ketones Negativemg/dL (NEGATIVE) Urine Occult Blood Negative (NEGATIVE) Urine Nitrite Negative (NEGATIVE) Urine Bilirubin Negative (NEGATIVE) Urine Urobilinogen Normalmg/dL (NORMAL) Urine Leukocyte Esterase Negative (NEGATIVE) Urine RBC 0-2/hpf (0-2) Urine WBC 0-5/hpf (0-5) Urine Epithelial Cells Occasional/hpf (NONE-MOD) Urine Crystals None seen (NONE SEEN) Urine Bacteria None/hpf (NONE-FEW) Urine Hyaline Casts None/lpf (NONE) Urine Granular Casts None seen (NONE SEEN) Urine Waxy Casts None seen (NONE SEEN) Urine Red Blood Cell Casts None seen (NONE SEEN) Urine White Blood Cell Casts None seen (NONE SEEN) Urine Mucus None seen (None Seen) Urine Trichomonas None seen (NONE SEEN) Urine Yeast None (NONE SEEN) Urine Culture Reflexed Not indicated Total Bilirubin 0.8mg/dL (0.0-1.2) Aspartate Amino Transf (AST/SGOT) 66U/L (0-50) Alanine Aminotransferase (ALT/SGPT) 22U/L (0-44) Alkaline Phosphatase 170U/L (25-160) Total Protein 4.8g/dL (6.4-8.4) Albumin 2.4g/dL (3.4-5.0) Phenytoin (Dilantin) Level 5.3uG/mL (10.0-20.0) Test 01/21/17 05:00 White Blood Count 10.5th/mm3 (3.8-10.1) Red Blood Count 3.23mil/mm3 (4.40-5.80) Hemoglobin 9.8g/dL (13.8-17.2) Hematocrit 29.6% (41.0-50.0) Mean Corpuscular Volume 91.6fL (81-100) Mean Corpuscular Hemoglobin 30.3pg (27.0-35.0) Mean Corpuscular Hemoglobin Concent 33.1% (32.0-37.0) Red Cell Distribution Width 20.1% (12.3-15.4) Platelet Count 127bil/L (150-400) Neutrophils (%) (Auto) 68.6% (40-74) Lymphocytes (%) (Auto) 19.7% (14-46) Monocytes (%) (Auto) 9.3% (4-12) Eosinophils (%) (Auto) 1.5% (0-5) Basophils (%) (Auto) 0.7% (0-3) Sodium Level 142mEq/L (134-144) Potassium Level 3.4mEq/L (3.5-5.2) Chloride Level 107mEq/L (97-108) Carbon Dioxide Level 24mmol/L (18-29) Blood Urea Nitrogen 6mg/dL (8-27) Creatinine 0.51mg/dL (0.76-1.27) Estimat Glomerular Filtration Rate 171mL/min (>59) Glucose Level 101mg/dL (60-99) Lactic Acid Level 2.4mmol/L (0.4-2.0) Calcium Level 6.9mg/dL (8.5-10.1) Magnesium Level 1.3mg/dL (1.6-2.6) Assessment/Plan Assessment/Plan A: * Vancomycin dosing by pharmacy for 71 y/o man * One of two blood cultures is positive for gram positive cocci, the other is pending * Estimated CrCl is 115 mL/min (Cockcroft & Gault) * Estimated vancomycin half-life is 7 hours and estimated Vd is 52 liters P: * Give a vancomycin 1500 mg IV loading dose * Continue with vancomycin 1000 mg IV every 12 hours * Target a trough range of 15 - 20 mcg/mL for now * Drawing a trough level prior to the fourth dose Thank you. Pharmacy will continue to follow this patient. Ariadna Willett Jan 21, 2017 06:51
[2017-01-21] MEDS: Phenytoin 100 mg ER Capsule PO SCH ×2 (08:33→20:54)
[2017-01-21] MEDS: Multivit-Miner-Folic Acid-Iron Tablet PO SCH (08:34)
[2017-01-21] MEDS: oxyCODONE-Acetamin 5-325 mg Tablet PO PRN (08:34)
[2017-01-21] MEDS: Vancomycin Dose per Pharmacist XX SCH (08:34)
[2017-01-21] MEDS: Diltiazem CD 180 mg ER24 Capsule PO SCH (08:34)
[2017-01-21] MEDS ORDERED: Magnesium Sulf 4 Gm/100 mL H2O 4 GM in IV Premix 1 EACH IV ONE (08:45)
[2017-01-21] MEDS ORDERED: Potassium Chloride 20 mEq SR Tablet PO ONE (08:45)
[2017-01-21] MEDS ORDERED: Piperacillin-Tazo 3.375 Gm Inj 3.375 GM in Dextrose 5% Minibag Plus 50 ML IV SCH (09:05)
[2017-01-21] MEDS ORDERED: Potassium Chloride Inj 20 MEQ in Dextrose 5% 250 ML IV ONE (10:30)
--- NOTE | 2017-01-21 11:38 | NUR ---
NUTRITION ASSESSMENT: ASSESS: 71YO M admit with multiple medical issues including ascites, elevated white count transaminases with possible pancreatitis, obtaining fecal elastase levels and EGD/colonoscopy tomorrow. MD recommending small meals and encouraging hydration, abstinence from ETOH, reports underlying cirrhosis. No wt loss per PMHx. PMHX:ETOH dependence, COPD,SBO,pancreatitis,epilepsy,diverticulotis,HTN DIET: Full Liquid. PO 100% LABS: K+3.4,Glu 101,BUN 6, Cr 0.51, Lactic Acid 2.4, Ca 6.9,Mg 1.3,Alb 2.4 MEDS: Reviewed GI:Abdominal pain/diarrhea/nausea. WEIGHT: 74.8kg BMI: 24.4 EST.NEEDS: COPD/CIRRHOSIS (30-35kcal/kg; NUTRITION DIAGNOSIS: (1) Increased energy/protein needs related to increased demand for nutrients as evidenced by COPD,Cirrhosis. INTERVENTION: (1) Will add supplements, small meals per MD request to meet pt. needs while on full liquid diet. MONITOR/EVALUATE: PO intake, lab values, GI status. F/U per moderate risk.
--- NOTE | 2017-01-21 12:05 | PCM.PNMED ---
Subjective Date of Service Jan 21, 2017 Subjective Patient notes feeling slightly better this morning, I will pain which he consistently been tentative 10 yesterday is improved to about 7 out of 10 with no need for further titration of pain medications. He is hungry this morning but was nothing by mouth for expectant upper endoscopy. He is currently denying any fever or chills. [place] pain is now located in the right upper quadrant though slightly migratory but less pronounced in left upper quadrant as was the case yesterday. He is denying any palpitations or shortness of breath. Denies any other complaints at this time. Exam Vital Signs Vital Sign - Last Date Time Temp Pulse Resp B/P Pulse Ox O2 Delivery O2 Flow Rate FiO2 01/21/17 09:28 36.5 83 16 136/87 96 Room Air Intake and Output 01/20/17 01/20/17 01/21/17 Cumulative From/Thru 15:00 23:00 07:00 01/19/17 22:10 - 01/21/17 06:04 Intake Total 897 ml 150 ml 3097 ml Output Total 200 ml 375 ml 575 ml Balance 697 ml -225 ml 2522 ml Intake Oral 600 ml 150 ml 750 ml IV Total 297 ml 2347 ml Output Urine Total 200 ml 375 ml 575 ml # Bowel Movements 1 1 2 Exam General: Alert, Oriented X3, Cooperative, Moderate Distress Eyes: PERRLA, EOMI Mouth: Mucous Membranes Moist/[place], Poor dentition, tobacco stained lips and gums. Chest & Lungs: Coarse breath sounds diffusely with good airflow in all lung blount. No consolidation, no dullness noted on percussion. Cardiovascular: Regular rate and rhythm Abdomen: Less tender, but still distended, cannot appreciate hepatosplenomegaly. Moderate amount of ascites. Positive bowel sounds. No overt guarding in spite of tenderness. Extremities: No cyanosis/clubbing/edema bilat Neurological: Grossly Neurologically Intact, Cranial Nerves 2-12 Intact IVs and Medications Medications Reviewed: Medications were reviewed in detail Lab and Diagnostics Result Diagram: 01/21/17 0500 01/21/17 0500 Assessment & Plan 71 YO M presenting with refractory abdominal pain of unclear etiology meeting SIRS criteria, admitted for further evaluation and treatment: #. Abdominal pain - Initial evaluation negative for evidence of acute cause. - CT scan did demonstrate moderate ascites but no other evidence of acute infection. - Pt does drink alcohol however MRCP was negative, lipase negative. - Ultrasound-guided paracentesis was ordered to identify possible infection present ascites which may account for patient's symptoms, however interventional radiology team there is not enough fluid to tap. - We will continue to monitor patient's condition in addition to blood cultures are positive for gram-positive cocci species still pending and urine culture negative for growth over 24 hours. - He will be continued on ceftriaxone , which is started in place of Zosyn initiated in the ER given renal issues , this would still be active treatment of SBP appears most likely source of patient's bacteremia . #Sepsis - Elevated white blood cell count, elevated pulse with severe abdominal pain ascites, in addition to elevated lactic acid level. - Treatment with ceftriaxone therapy for presumed SBP, continued IV hydration with intravenous fluids. - Consider infectious disease consult for further evaluation, in addition to already consulted gastroenterology. #. Alcohol dependence - [facility] protocol initiated - NO evidence of acute withdrawal evident on admission to hospital. #Hypernatremia - May be iatrogenic using 0.45% normal saline with normalizing sodium levels overnight. #Anemia - This has proved progressive. - Folate and B12 levels are pending, though MCV is within normal limits. - We will continue to monitor - To be at least in part due to hemodilution, no evidence of active bleeding. - Again GI consult of upper endoscopy is planned for later today. #. Epilepsy - We will continue all medications at this time - Dilantin levels ordered and pending. #. Transaminitis - Patient certainly appears to have some baseline liver dysfunction due to extensive history of alcohol dependence described above. - He does however note is only been drinking over the last couple days and a benign remission for greater than a month, only restarting due to severe abdominal pains. Based on this series is abdominal pain must be caused by another process given the pain preceded his most recent alcohol use. - Follow-up and level #. Tobacco dependence - Patient smokes 1 pack per day is requesting nicotine patch for withdrawal symptoms/cravings Pain Evaluation: Adequate Pain Control GI Prophylaxis: Proton Pump Inhibitor VTE Mechanical Devices: Intermittant Pneumatic CD Resuscitation Status: CPR: Attempt Resuscitation Time spent 35 minutes Cornell Monte DO Jan 21, 2017 12:05
[2017-01-21] MEDS ORDERED: 0.9% Sodium Chloride 100 ML ONE (12:19)
[2017-01-21] MEDS: cefTRIAXone Inj 1,000 MG in Dextrose 5% Minibag Plus 50 ML IV SCH (12:29)
[2017-01-21] MEDS ORDERED: Propofol 10,000 mCg/mL 20 mL Inj ONE (13:59)
[2017-01-21] MEDS ORDERED: fentaNYL-PF 50 mCg/mL 2 mL Inj ONE (13:59)
--- NOTE | 2017-01-21 14:52 | NUR ---
Off unit-ENDO Pt off unit at this time for an EGD. IV-SL. Tele on hold. Addendum: 01/21/17 at 1709 by CHAO SKY RN Pt back on unit at 1645. c/o abd pain 05/31. IVF restarted.
[2017-01-21] MEDS ORDERED: Lactated Ringer's 1,000 ML IV ONE (15:22)
--- NOTE | 2017-01-21 16:09 | PCM.ENDEGD ---
EGD Date of Service: Jan 21, 2017 Physician Eugene Stockton Pre Procedure Diagnosis: Abdominal pain. Post Procedure Dx & Findings: Severe gastropathy Procedure Esophagogastroduodenoscopy PROCEDURE IN DETAIL: After proper sedation, Olympus video endoscope was inserted into patient's mouth and esophagus was successfully intubated. Scope introduced esophagus. Esophagus showed normal shiny whitish mucosa consistent with squamous cell component. Z line was intact at 35 cm from the incisors. The further advanced to the stomach. The entire stomach was irritated without any clear folds and redness edema consistent with severe gastropathy. Biopsies were OBTAINED. Lots of bilious material noted. Antrum appeared to be resected. Anastomosis site appeared to be normal. Cardia fundus body antrum pylorus were all visualized. Retroflexion was done. Stomach was easily inflated and deflatable using air. Scope further advanced beyond the anastomosis site. Small bowel revealed normal villous structures with normal appearing folds without any mass ulcer erosion. Impression Severe gastropathy status post biopsy Bilious material in stomach Recommendation Resume previous diet Carafate 10 mL by mouth 3 times a day Presedation Assessment Risks and Benefits Informed consent was obtained from the patient after all risks and benefits including but not limited to drug reaction, infection, pain, bleeding, perforation, as well as alternatives were discussed. Patient monitoring Continuous pulse oximetry, cardiac monitoring, blood pressure monitoring, IV access, and oxygen at 2L per nasal cannula. Complications There were no periprocedural complications identified. Post Procedure Plan Post Procedure Recommendations 1. Restrict activities today. 2. Resume normal activities in the morning. 3. Resume medications. 4. GERD behavioral modification: - Avoid fatty, acidic, spicy, large meals - Do not lie down after meals - Do not eat or drink anything for at least 2 1/2 hours before going to bed at night - Discontinue tobacco and alcohol - Decrease or avoid caffeine - Avoid chocolate and mints - Decrease weight - Avoid aspirin and non steroidal anti-inflammatory agents (NSAID) such as Aleve, Advil, Mobic, Naproxen, Ibuprofen, etc 5. Add proton pump inhibitor. Take 30 minutes before 1st meal of the day. 6. Patient informed of normal post procedure side effects as bloating, drowsiness, blood streaking in the stool 7. If gastric biopsy reveal H.pylori, continue with appropriate treatment 8. If small bowel biopsy reveals celiac, continue with appropriate treatment 9. Please don't hesitate to call me with any questions Eugene Stockton MD Jan 21, 2017 16:08
[2017-01-21] MEDS: Pancrelipase 5,000 Unit Capsule PO SCH ×2 (17:02→17:10)
[2017-01-21] MEDS: Vancomycin Inj 1,000 MG in IV Premix 1 EACH IV SCH (18:11)
[2017-01-21] MEDS: Sucralfate 100 mg/mL 10 mL Suspension PO SCH (18:15)
[2017-01-21] MEDS: Pantoprazole 4 mg/mL 10 mL Inj IVPUSH SCH (18:15)
[2017-01-22] VITALS (8 sets, daily range): BP systolic 126–141; BP diastolic 81–90; PULSE 80–93; RESP 16–20; O2SAT 94–98
[2017-01-22] MEDS: HYDROmorphone 0.5 mg/0.5 mL iSecure Syringe IVPUSH PRN ×3 (01:00→09:25)
--- NOTE | 2017-01-22 03:56 | NUR ---
Pain Pain managed well by prn IV dilaudid, noted of blood in IJ line dressing, held IVF, made MD aware, ordered xray to verify placement, received a call from MD saying IV is in place, looks good and may resume IVF, reinforced dressing, leave a msge for IV Therapy for central line dressing change in AM, vitals stable, afebrile, call light in reach at all times, hourly checks, will continue to monitor.
[2017-01-22 05:22] LABS: BASOPHILS % (AUTO) 0.6 % (0-3); EOSINOPHILS % (AUTO) 1.7 % (0-5); MONOCYTES % (AUTO) 8.3 % (4-12); Mean Corpuscular Hemoglobin 29.9 pg (27.0-35.0); Mean Corpuscular Volume 91.7 fL (81-100); NEUTROPHILS % (AUTO) 67.3 % (40-74); Platelet Count 126 bil/L (150-400)
[2017-01-22] MEDS: Vancomycin Inj 1,000 MG in IV Premix 1 EACH IV SCH (05:30)
--- NOTE | 2017-01-22 06:41 | CONS ---
[address] [address] CONSULTATION REPORT PATIENT: NAT HOLLOWAY : 1945 MR#: [id number] ADMIT: 01/20/2017 JOB ID: [id number] DATE OF SERVICE: 01/21/2017 NEW INFECTIOUS DISEASE CONSULTATION: I would like to thank Dr. Monte for this consult. REASON FOR CONSULT: Staph bacteremia. HISTORY OF PRESENT ILLNESS: The patient is a complex 71-year-old gentleman, well-known to me from an admission last year. At that time, we were concerned about a possible staph aureus left prostatic septic joint, but eventually concluded that was not likely to be the case, and the patient was given a short course of anti-MRSA therapy. I recall that, at that time, last fall, the patient had developed chronic left hip pain after twisting his ankle, and on April 24, 2016, he received a left total hip. This was a very difficult surgery with heavy blood loss, and afterwards, a wound infection developed, and the argument was about whether or not the wound infectious extended down to the level of the newly placed prosthetic joint. Eventually, we concluded it did not, and provided the patient with a short course of IV antibiotics. The patient's past medical history is notable mainly for COPD, epilepsy, alcoholism with chronic liver disease, chronic pancreatitis and a Whipple 20 years ago, and many traumatic injuries in the past. This admission, on January 19, was precipitated by increasing abdominal pain, as well as one year of nausea and vomiting, which seemed to be worsening, as well as diarrhea, which had started more recently. Note that the patient has some diarrhea on and off, but that got worse lately. In addition, the patient has no appetite, has been unable to eat due to the chronic nausea and vomiting, and has lost 30 pounds. The patient has had no fevers, chills, or sweats. When he came in and was evaluated for this nausea, vomiting, diarrhea, and worsening abdominal pain, he was noted to have a lactic acidosis, which has resolved fairly quickly. He was also noted to have a bit of a leukocytosis, so blood cultures were done. Dr. Monte has asked for a consult because 2/4 blood cultures, both from one set, are growing a staph species. With respect to other infectious symptoms, the patient says he has no fevers, chills, or sweats. He states that he does not have any significant cough or shortness of breath beyond his normal. He is not having sore throat, no dysuria, and no significant headache. He is not having any more problems with his left hip. Note that the patient is a fairly heavy outpatient opiate, as well as alcohol consumer. PAST MEDICAL HISTORY: As noted: 1. COPD. 2. Epilepsy. 3. Chronic back and abdominal pain. 4. Alcoholism with recent relapse. 5. Hypertension. 6. Chronic pancreatitis. 7. Status post Whipple procedure 20 years ago. 8. Anterior abdominal wall hernia. 9. Small bowel obstruction. 10. 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 11. History of MRSA infections. SOCIAL HISTORY: The patient was a heavy drinker through most of his early life, stopped for a period, and started in again about three years ago. He then stopped once again, but more recently, has been drinking heavily. He has a heavy cigarette history, 1-2 packs a day for his whole life. The patient was in the [employer] for four years during . 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 FAMILY HISTORY: Negative for tuberculosis in first and second degree relatives. REVIEW OF SYSTEMS: The patient states, at this point, he has no significant headache, no acute visual change, and no sore throat. He is not having a significant cough or shortness of breath. He says he has an a.m. smoker's cough, but nothing new or different. He has ongoing severe intractable abdominal pain and one full year of nausea and vomiting, according to his first , who is with him in the room. He also has had a diarrhea for a week or so. He denies dysuria, urgency, frequency. He says his left hip is now working pretty well after the initial infection scare. He has chronic swelling of both legs and chronic back pain. The remainder of the review of systems negative. PHYSICAL EXAMINATION: Reveals an afebrile gentleman, temperature 36.4. Pulse 91, respiratory rate 16, blood pressure 143/100, saturating 93% on room air. He is in no obvious distress. He is awake and alert, but when you are speaking to him, his eyes occasionally roll completely back, as if he is about to lose consciousness, only to snap back and start talking again. This is a disarming characteristic. His eyes are without conjunctivitis or scleral icterus. He has obvious severe temporal wasting. His nose is normal. His oral cavity is without thrush or hairy leukoplakia. He has eight teeth, all on the bottom. Overall, his teeth are in poor repair in what few are left. His neck is without notable adenopathy. His lungs relatively clear bilaterally with a few scattered wheezes. Cardiac tones, regular rate and rhythm, without significant murmur or gallop. Abdomen is diffusely distended. There are multiple scars all across his abdomen, which he says reflects his nine major abdominal surgeries. His abdomen is diffusely firm almost everywhere, with [id number] tenderness with palpation. No focal masses are appreciated, but it is a very difficult exam. He does not have a distended bladder. He does not have a Love catheter at this point. He is wearing a diaper. No inguinal adenopathy. Both legs are edematous, probably 1 to 2+ almost all the way up to the waist. He can move both his hips easily and with full range of motion. There is no evidence for synovitis, no evidence for lower extremity cellulitis, and no skin breakdown. He has reasonable peripheral pulses and seems to be well-perfused in the extremities. Neurologically, he is basically nonfocal. LABORATORY DATA: Labs include white count 10,000 today, 13,000 on admission. Mild left shift was seen. It has resolved. Platelets 127, which is low. Creatinine 0.51. LFTs notable for an AST of 66, ALT 22, alk phos 170, albumin 2.4. Urinalysis is negative. Alcohol level on admission 223. Dilantin level 2.3. Micro studies include positive nasal MRSA screen back in April. A culture from his left thigh wound, back in April, grew MRSA, and 2/4 blood cultures done yesterday, in the electrolytic de scaler hours in the ED, are growing staph. I spoke to Micro, and it was not clear yet if these were coag positive or negative staph. RADIOGRAPHIC DATA: Chest x-ray shows clear lung blount. Abdominal CT scan was quite abnormal, showing ascending colon wall thickness, which could be colitis, cancer, or ischemic. He also has a ventral abdominal wall hernia and some ascites. The liver appears with fatty infiltration. The gallbladder is, of course, absent. An MRCP was done, which showed moderate ascites. No pancreatitic duct distention and no pancreatitic mass. IMPRESSION: This is a difficult case of a gentleman with chronic pancreatitis, intractable nausea and vomiting, chronic back pain, chronic abdominal pain, and chronic obstructive pulmonary disease. He is admitted basically for evaluation of abdominal pain, nausea, vomiting, and recent onset diarrhea. CT of the abdomen shows possible colitis, which could be ischemic or represent malignancy, or even Clostridium difficile. The most concerning thing about this evaluation, of course, from an ID point of view, is two positive blood cultures in a patient whom we know is heavily and chronically colonized with MRSA. This could represent bacteremia, such as endocarditis, or even bacteremia arising from a chronic infection in that left prosthetic hip that was at least superficially infected back in April. More likely, I suspect these are going to be coag-negative staph, as the patient looks non-toxic, and had no preceding history of fevers, chills, sweats, or other infectious symptomatology. RECOMMENDATIONS: 1. We will continue with vancomycin with ceftriaxone overnight. 2. If these blood cultures are coag-negative staph, I would go ahead and stop his antibiotics, as I do not have strong reasons to believe he is infected at all. 3. If these blood cultures are staph aureus, we will need to continue with his antibiotics and obtain serial blood cultures. 4. An echocardiogram should be done in any event because the patient has bilateral lower extremity edema, and we could look at his valves. 5. Other studies to be ordered will be Strongyloides because of his service in [facility] and the presence of a colitis now. We will also be checking a C. diff PCR, as well as QuantiFERON Gold. Thank you very much for consulting us on this intriguing patient.
[2017-01-22] MEDS: Sucralfate 100 mg/mL 10 mL Suspension PO SCH ×3 (07:30→17:24)
--- NOTE | 2017-01-22 08:31 | DRSVH ---
PROCEDURE: X-RAY CHEST ONE VIEW, PORTABLE ([id number]) INDICATIONS: line placement TECHNIQUE: One view of the chest was acquired. COMPARISON: [facility], CR, XR CHEST 1VW (PORTABLE), 01/20/2017, 3:23. FINDINGS: Surgical changes and devices: Central venous catheter projects in the distal SVC via a right IJ appro ach. Lungs and pleura: No pleural effusions or pneumothorax. Lungs are clear. Mediastinum: Mediastinal contours appear normal. Heart size is normal. Bones and chest wall: No suspicious bony lesions. Overlying soft tissues appear unremarkable. IMPRESSION: No acute cardiopulmonary disease process. Dictated by: Mikki Crump MD, PhD on 01/22/2017 at 8:29 Approved by: Mikki Crump MD, PhD on 01/22/2017 at 8:30
[2017-01-22] MEDS: Vancomycin Dose per Pharmacist XX SCH (09:06)
--- NOTE | 2017-01-22 09:20 | NUR ---
ANDREW signed. ONEL Schwartz
[2017-01-22] MEDS: cefTRIAXone Inj 1,000 MG in Dextrose 5% Minibag Plus 50 ML IV SCH (09:24)
[2017-01-22] MEDS: Pancrelipase 5,000 Unit Capsule PO SCH ×3 (09:24→17:24)
[2017-01-22] MEDS: Pantoprazole 4 mg/mL 10 mL Inj IVPUSH SCH (09:25)
[2017-01-22] MEDS: Phenytoin 100 mg ER Capsule PO SCH ×2 (09:25→22:06)
[2017-01-22] MEDS: Diltiazem CD 180 mg ER24 Capsule PO SCH (09:26)
[2017-01-22] MEDS: Multivit-Miner-Folic Acid-Iron Tablet PO SCH (09:26)
--- NOTE | 2017-01-22 10:22 | PCM.PNMED ---
Subjective Date of Service Jan 22, 2017 Subjective Today's patient's complaining of more abdominal pain. He is upset that he is not getting his pain medications. His also said that they are stopping IV antibiotics on him. Reports that he has not been eating significantly. He takes a few bites and he does not want to eat. Exam Vital Signs Vital Sign - Last Date Time Temp Pulse Resp B/P Pulse Ox O2 Delivery O2 Flow Rate FiO2 01/22/17 09:19 36.5 89 18 128/82 97 Room Air Intake and Output 01/21/17 01/21/17 01/22/17 Cumulative From/Thru 15:00 23:00 07:00 01/19/17 22:10 - 01/22/17 06:02 Intake Total 2277 ml 884 ml 1205 ml 7463 ml Output Total 100 ml 700 ml 1375 ml Balance 2277 ml 784 ml 505 ml 6088 ml Intake Oral 520 ml 350 ml 1620 ml IV Total 2277 ml 364 ml 855 ml 5843 ml Output Urine Total 100 ml 700 ml 1375 ml # Bowel Movements 1 1 4 Exam Patient is alert oriented does appear comfortable. He appears cachectic Head and neck no icterus Lungs wheezing and significant decrease in breath sounds Cardiovascular regular rate and rhythm, normal S1-S2 Abdomen soft mild distended with normoactive bowel sounds. Current examination , I touch his abdomen and gently pressed on. His response was that he was having significant abdominal tenderness. However his abdomen felt very soft without any evidence of involuntary guarding. Then I placed my stethoscope and pushed his abdomen. He did not respond in the same way. I was able to push my stethoscope pretty deep into the abdomen and his face grimaced Extremities no pitting edema to ankles . Lab and Diagnostics Result Diagram: 01/22/17 0500 01/22/17 0500 Assessment & Plan This is a gentleman who has history of chronic pancreatitis status post Whipple and comes in with abdominal pain. He also has underlying cirrhosis. I recommended EGD and colonoscopy however he did not want to take his prep and did not want to proceed with his colonoscopy. Yesterday prior to the upper endoscopy, I asked him again to proceed with a colonoscopy he did not want to proceed with colonoscopy despite the CT finding. EGD was done which shows significant inflammation of the stomach with significant amount of bilious material covering the stomach. An anastomosis site and the bowel loops normal. 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 Carafate was started. Abdominal pain could be combination of gastritis on top of possible acute on chronic Pancreatitis. Recommendations 1. Please obtain fecal elastase level. He needs to stop smoking and drinking alcohol. He needs to eat small meals with significant hydration. Also, would recommend pancreatic enzyme supplements.Please try the patient on Creon 12, 2 tabs before meals. Also, would try to have him eat smaller meals with lots of hydration. He definitely needs to stop using alcohol. 2. He has a history of underlying cirrhosis. Obtain alpha fetoprotein level and ultrasound of the liver for HCC screening. Again, he needs to stop drinking alcohol. He does have ascites and aware that Radiology does no think this is tap-able. 3. CT showing possible thickened bowel wall, i.e. colitis, and he said his last colonoscopy was many years ago. Therefore, will consider EGD and colonoscopy. Patient declined colonoscopy. Now today he wants to proceed with the colonoscopy. At this point, the colonoscopy can be done as an outpatient. 4. Finally, transaminases are elevated. Will follow. This could be due to alcohol. Alkaline phosphatase is elevated. Would obtain GGT. GI Prophylaxis: Proton Pump Inhibitor VTE Mechanical Devices: Intermittant Pneumatic CD Resuscitation Status: CPR: Attempt Resuscitation Eugene Stockton MD Jan 22, 2017 10:22 #Anemia - This has proved progressive. - Folate and B12 levels are pending, though MCV is within normal limits. - We will continue to monitor - To be at least in part due to hemodilution, no evidence of active bleeding. - Again GI consult of upper endoscopy is planned for later today. #. Epilepsy - We will continue all medications at this time - Dilantin levels ordered and pending. #. Transaminitis - Patient certainly appears to have some baseline liver dysfunction due to extensive history of alcohol dependence described above. - He does however note is only been drinking over the last couple days and a benign remission for greater than a month, only restarting due to severe abdominal pains. Based on this series is abdominal pain must be caused by another process given the pain preceded his most recent alcohol use. - Follow-up and level #. Tobacco dependence - Patient smokes 1 pack per day is requesting nicotine patch for withdrawal symptoms/cravings GI Prophylaxis: Proton Pump Inhibitor VTE Mechanical Devices: Intermittant Pneumatic CD Resuscitation Status: CPR: Attempt Resuscitation Eugene Stockton MD Jan 22, 2017 10:22
--- NOTE | 2017-01-22 12:02 | NUR ---
Social Work-initial assessment: Data:See initial assessment. Pt is a 71 y/o male who was admitted on 01/20/17 for abdominal pain per H&P. Pt's insurance is [employer] and PCP is [facility] residency [facility]. EMR Reviewed. Pt's readmission score is 4-high risk. Pt just discharge on 12/29, home with [facility]-RN and PT. SW met with pt at beside, SW role explained. Pt is alert and oriented x3. Pt resides at home with his ex- Lon and daughter Deloris in a single level mobile home with a few steps to enter. Pt uses either a fww or cane at baseline and does not drive. Pt states he currently has services through Stephanie for RN and PT, SW to await MD orders for Resume HH prior to contacting [facility]. Pt has SNF history at [facility] and [facility]. 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 SW discussed DPOA/ advanced directive, pt confirms he has completed this, SW encouraged a copy to be brought in. Per MD notes, pt has history of ETOH use, SW to await MD orders, if indicated. Pt likely to discharge home with resume HH orders when medically stable. Pt's family to provide transport home at discharge. SW placed phone number and plan on white board in room. SW will continue to follow. Assessment:pt who is open with [facility]. Plan:Pt to likely discharge home with family when medically stable. SW to await MD orders for Resume HH for [facility]-RN and PT. SW will continue to follow. ONEL Schwartz Addendum: 01/22/17 at 1206 by SAGAR MCMILLAN Amended: Links added.
[2017-01-22] MEDS: oxyCODONE-Acetamin 5-325 mg Tablet PO PRN (13:53)
[2017-01-22] MEDS ORDERED: Furosemide 10 mg/mL 2 mL Inj IVPUSH SCH (14:40)
--- NOTE | 2017-01-22 14:49 | PCM.PNMED ---
Subjective Date of Service Jan 22, 2017 Subjective Patient notes pain is improved control today with current pain medications. His appetite is improving as per my history though he had noted to the GI doctor earlier in the day that it remained poor. Nonetheless he had a good amount of his breakfast. Denies any sweats chills or fevers overnight. Abdominal pain is still located predominantly in the upper right quadrant, more so on the upper than lower quadrants. Not been experiencing as much loose stool , he has noted no blood in stool nor dark tarry coloration. He is urinating frequently. Denies any chest pains or palpitations. Has any shortness of breath. Exam Vital Signs Vital Sign - Last Date Time Temp Pulse Resp B/P Pulse Ox O2 Delivery O2 Flow Rate FiO2 01/22/17 13:54 36.6 87 20 127/86 97 Room Air Intake and Output 01/21/17 01/21/17 01/22/17 Cumulative From/Thru 15:00 23:00 07:00 01/19/17 22:10 - 01/22/17 06:02 Intake Total 2277 ml 884 ml 1205 ml 7463 ml Output Total 100 ml 700 ml 1375 ml Balance 2277 ml 784 ml 505 ml 6088 ml Intake Oral 520 ml 350 ml 1620 ml IV Total 2277 ml 364 ml 855 ml 5843 ml Output Urine Total 100 ml 700 ml 1375 ml # Bowel Movements 1 1 4 IVs and Medications Medications Reviewed: Medications were reviewed in detail Lab and Diagnostics Result Diagram: 01/22/17 0500 01/22/17 0500 Assessment & Plan 71 YO M presenting with refractory abdominal pain of unclear etiology meeting SIRS criteria, admitted for further evaluation and treatment: #. Abdominal pain - Initial evaluation negative for evidence of acute cause. - CT scan did demonstrate moderate ascites but no other evidence of acute infection. - Pt does drink alcohol however MRCP was negative, lipase negative. - Ultrasound-guided paracentesis was ordered to identify possible infection present ascites which may account for patient's symptoms, however interventional radiology team there is not enough fluid to tap. - We will continue to monitor patient's condition in addition to blood cultures are positive for gram-positive cocci species still pending and urine culture negative for growth over 24 hours. - He was continued on ceftriaxone , which is started in place of Zosyn initiated in the ER given renal issues, due to concern for SBP or other occult infection however with negative MRSA screen and otherwise stable patient this was all discontinued with the agreement of infectious disease specialist. - We continue to appreciate consultation by gastroenterology, who consider a number of possibilities including chemical gastritis which will currently treat with Carafate, in addition to possible chronic pancreatitis for which serum and stool studies are ordered and pending. - Colonoscopy will be deferred to outpatient setting unless patient's condition acutely decompensates. - Current plan will be to transition to oral pain medications, and tinea close observation, hold for expectant discharge plan to transition care to outpatient setting for his condition continued to slowly improve. #Sepsis - Elevated white blood cell count, elevated pulse with severe abdominal pain ascites, in addition to elevated lactic acid level. - Initially Treatment with ceftriaxone therapy for presumed SBP, continued IV hydration with intravenous fluids. - Patient began to demonstrate evidence of volume overload including edema of lower, and hemodilution evidenced on lab studies prior to discontinuation of fluids, and a trial diuresis given amount of weight gain. - Infectious disease consult was appreciated, did not note source or evidence of acute infection and of such discontinued antibiotic therapy as noted above. - Patient is no longer any septic criteria is hemodynamically stable with a normal white count and afebrile. #. Alcohol dependence - [facility] protocol initiated - NO evidence of acute withdrawal evident on admission to hospital. #Hypernatremia - May be iatrogenic, initially transitioned to point for 45% normal saline now discontinued off intravenous fluids altogether. #Anemia - This has proved progressive. - Folate and B12 levels are pending, though MCV is within normal limits. - We will continue to monitor, do believe there is a delusional component to this given amount of weight gain over past few days and pancytopenia, will observe her discontinuation of fluids and diuresis with Lasix. -Upper endoscopy did not demonstrate evidence of significant bleed, and as noted above colonoscopy will be deferred outpatient setting given no evidence of acute pathology at this time. #. Epilepsy - We will continue all medications at this time - Dilantin levels ordered and pending. #. Transaminitis - Patient certainly appears to have some baseline liver dysfunction due to extensive history of alcohol dependence described above. - He does however note is only been drinking over the last couple days and a benign remission for greater than a month, only restarting due to severe abdominal pains. Based on this series is abdominal pain must be caused by another process given the pain preceded his most recent alcohol use. - Continue to trend #. Tobacco dependence - Patient smokes 1 pack per day is requesting nicotine patch for withdrawal symptoms/cravings Pain Evaluation: Adequate Pain Control GI Prophylaxis: Proton Pump Inhibitor VTE Mechanical Devices: Intermittant Pneumatic CD Resuscitation Status: CPR: Attempt Resuscitation Time spent 35 minutes Cornell Monte DO Jan 22, 2017 14:49
[2017-01-22] MEDS ORDERED: HYDROmorphone 1 mg/mL Inj IVPUSH PRN (17:00)
--- NOTE | 2017-01-22 17:27 | NUR ---
Pain Patient c/o 10/10 abdominal pain relieved by IV Dilaudid. MD switched Dilaudid from IV to PO, patient became agitated and requested to be discharged. Patient talked with MD and agreed to a bedtime dose of IV Dilaudid but to continue on PO Dilaudid tomorrow.
[2017-01-22] MEDS ORDERED: Vancomycin Serum Trough XX ONE (17:30)
[2017-01-23 02:45] VITALS: BP 130/77; PULSE 84; RESP 16; O2SAT 96
[2017-01-23 06:12] VITALS: BP 118/71; PULSE 90; RESP 20; O2SAT 95
[2017-01-23 06:14] VITALS: PULSE 90
--- NOTE | 2017-01-23 06:39 | NUR ---
Pain/Nausea Pt alternates between 10/10 pain and no pain. IV dilaudid at HS was readily accepted and after explanation of plan to have PO dilaudid later, he was accepting about it. PO dilaudid given one time over shift. Pt was experiencing nausea and that was relieved by Zofran ODT. Pt was polite and pleasant during this shift. Frequent rounding continues.
[2017-01-23] MEDS: Multivit-Miner-Folic Acid-Iron Tablet PO SCH (08:22)
[2017-01-23] MEDS: Diltiazem CD 180 mg ER24 Capsule PO SCH (08:22)
[2017-01-23] MEDS: Sucralfate 100 mg/mL 10 mL Suspension PO SCH ×2 (08:22→12:10)
[2017-01-23] MEDS: Pancrelipase 5,000 Unit Capsule PO SCH ×2 (08:23→12:10)
[2017-01-23] MEDS: Pantoprazole 4 mg/mL 10 mL Inj IVPUSH SCH (08:23)
[2017-01-23] MEDS: Phenytoin 100 mg ER Capsule PO SCH (08:24)
[2017-01-23 10:33] VITALS: PULSE 78
--- NOTE | 2017-01-23 10:59 | PCM.DC.MED ---
Discharge Summary Date of Service Jan 23, 2017 Dates of Hospitalization Date of Hospital Admission Jan 20, 2017 at 11:54 Date of Discharge: Jan 23, 2017 Providers: Admitting Physician: Cornell Monte DO Primary Care Physician: Anuj,[facility] Residency Attending Physician: Cornell Monte DO Diagnosis at Time of Discharge Diagnosis at Time of Discharge Abdominal pain, improved Ascites, secondary to chronic liver disease. Stable Sepsis, resolved no evidence of acute infection Consultations Gastroenterology, Dr. Stockton Infectious disease, Dr. Whitman. Procedures XRay, CTs & MRIs Date of Service: 01/20/17 0042 PROCEDURE: CT ABDOMEN AND PELVIS WITH CONTRAST ([id number]) INDICATIONS: abd pain, elev WBC and lactic acid IMPRESSION: Poorly-defined proximal ascending colon wall thickening suggestive of nonspecific colitis (infectious, inflammatory or ischemic). Please correlate clinically. As clinically warranted, followup with endoscopy to exclude superimposed colonic mass lesion could be performed after the patient's acute episode has resolved. Ventral abdominal wall hernia containing a loop of bowel however no definite small bowel destruction. Normal-appearing appendix. Moderate ascites. Hepatic steatosis, with incidentally noted pneumobilia. (Unchanged when compared with study from 2 years prior) Small bilateral pleural effusions, left greater than right with adjacent atelectasis. Dictated by: Brayan Vazquez M.D. on 01/20/2017 at 9:21 Brief History Patient is a 71-year-old male past medical history significant for chronic obstructive pulmonary disease, alcohol dependence in remission with acute exacerbation due to abdominal pain, pancreatitis, diverticulitis with history of small bowel obstruction requiring open surgical decompression, presenting to the emergency room yesterday evening with refractory abdominal pain which has been worsening over the past month but became much worse over the past couple of days. He has denied any history of fever chills or sweats. His stooling pattern has been regular but he notes a predominance of diarrhea especially over the past few days, and at times he experiences prolonged periods of constipation. Nausea and addition to abdominal pain has been present for some time, is been utilizing Zofran for the last many months to help control nausea but is only partially effective. He has been following with his PCP to determine cause but as of yet has no diagnosis. Patient has atrial fibrillation and taking warfarin therapy however due to the persistently supratherapeutic INRs is recently discontinued this medication. Emergency room evaluation was essentially unremarkable, did demonstrate a moderate amount of ascites but can identify no obvious cause of patient's abdominal pain. Lab studies were significant for a lactic acidosis and med surge criteria, further supporting evidence that there is some active process at work yet to be identified. Lipase level was obtained but within normal limits. Imaging studies excepting ascites demonstrated no acute changes liver, pancreas, or other which could account for patient's acute abdominal symptoms. My evaluation when patient been transferred to hospital floor, he noted some improvement in abdominal symptoms since his ER treatment, but noted discomfort was still certainly present. Denies any chest pains or current shortness of breath, overdose of COPD and will become out of breath with exertion at baseline. He also notes his nausea is currently in relatively good control, he has a small appetite and says he may be a lead something. No other acute complaints at this time. Denies current fever chills or sweats. Stool pattern as described above but he denies any recent history of bloody stool or dark or tarry stool. He has a history of seizure disorder but has had none in many years. Has a history of low back pain but this is stable at this time, not in acute exacerbation. Hospital Course #. Abdominal pain Hospital course as follows: - Initial evaluation negative for evidence of acute cause. - CT scan did demonstrate moderate ascites but no other evidence of acute infection. - Pt does drink alcohol however MRCP was negative, lipase negative. - Ultrasound-guided paracentesis was ordered to identify possible infection present ascites which may account for patient's symptoms, however interventional radiology team there is not enough fluid to tap. - We will continue to monitor patient's condition in addition to blood cultures are positive for gram-positive cocci species still pending and urine culture negative for growth over 24 hours. - He was continued on ceftriaxone , which is started in place of Zosyn initiated in the ER given renal issues, due to concern for SBP or other occult infection however with negative MRSA screen and otherwise stable patient this was all discontinued with the agreement of infectious disease specialist. - We continue to appreciate consultation by gastroenterology, who consider a number of possibilities including chemical gastritis which will currently treat with Carafate, in addition to possible chronic pancreatitis for which serum and stool studies are ordered and pending. - Colonoscopy will be deferred to outpatient setting unless patient's condition acutely decompensates. - Patient was subsequently transitioned to oral pain medications, and closely observed. He remained medically stable with pain improved to only oral medications overnight. - He was discharged in stable condition on the short course of oxycodone plan to follow-up with primary care physician within one week. #Chronic pancreatitis - A possible diagnosis suggest by gastroenterologists as a cause for abdominal pain - Fecal fat/lipase was ordered but pending at time of discharge, this patient being status post Whipple's procedure may have a normal to depressed lipase level and still may be suffering from a chronic pancreatic inflammatory process. - Patient was prescribed pancreatic lipase in the hospital and given improving pain in her abdomen this was continued on discharge #Esophagitis / gastritis - As noted above this was diagnosed with upper endoscopy - Aspirin draws he has prescribed Carafate which will be continued on discharge - Continue alcohol cessation was not covered which will aid in recovery. #Sepsis - Elevated white blood cell count, elevated pulse with severe abdominal pain ascites, in addition to elevated lactic acid level. - Initially Treatment with ceftriaxone therapy for presumed SBP, continued IV hydration with intravenous fluids. - Patient began to demonstrate evidence of volume overload including edema of lower, and hemodilution evidenced on lab studies prior to discontinuation of fluids, and a trial diuresis given amount of weight gain. - Infectious disease consult was appreciated, did not note source or evidence of acute infection and of such discontinued antibiotic therapy as noted above. - Patient is no longer any septic criteria is hemodynamically stable with a normal white count and afebrile. - Medical stable time of discharge #. Alcohol dependence - [facility] protocol initiated - NO evidence of acute withdrawal evident on admission to hospital. - The importance to continue cessation in the setting of gastric ,liver and pancreatic disease was discussed on multiple occasions, by myself and specialist Dr. Stockton. #Hypernatremia - May be iatrogenic, initially transitioned to point for 45% normal saline now discontinued off intravenous fluids altogether. - Resolves following discontinuation of fluids stable at time of discharge. #Anemia - This has proved progressive. - Folate was noted to be normal and B12 levels are elevated, in addition MCV was within normal limits. - We will continue to monitor, do believe there is a delusional component to this given amount of weight gain over past few days and pancytopenia, will observe her discontinuation of fluids and diuresis with Lasix. -Upper endoscopy did not demonstrate evidence of significant bleed, and as noted above colonoscopy will be deferred outpatient setting given no evidence of acute pathology at this time. - Patient was continued on Carafate given gastritis. #. Epilepsy - We will continue all medications at this time - Dilantin levels ordered, and not excessively elevated. #. Transaminitis/ascites - Patient certainly appears to have some baseline liver dysfunction due to extensive history of alcohol dependence described above. - He does however note is only been drinking over the last couple days and a benign remission for greater than a month, only restarting due to severe abdominal pains. Based on this series is abdominal pain must be caused by another process given the pain preceded his most recent alcohol use. - Lasix was suggested to aid in the removal of peritoneal fluid however patient declines medications saying it made him feel unwell. - Alpha-fetoprotein was also ordered for screening study for possible hepatocellular carcinoma, but pending at time of discharge. Should also be noted there was no radiologic evidence for hepatocellular carcinoma noted with CT scan. #. Tobacco dependence - Patient smokes 1 pack per day is requesting nicotine patch for withdrawal symptoms/cravings - Benefits of continued cessation was discussed Exam Vital Signs (Last) Date Time Temp Pulse Resp B/P Pulse Ox O2 Delivery O2 Flow Rate FiO2 01/23/17 10:33 78 01/23/17 06:12 36.6 20 118/71 95 Room Air Exam General: Alert, Oriented X3, Cooperative, Moderate Distress Eyes: PERRLA, EOMI Mouth: Mucous Membranes Moist/[place], Poor dentition, tobacco stained lips and gums. Chest & Lungs: Coarse breath sounds diffusely with good airflow in all lung blount. No consolidation, no dullness noted on percussion. Cardiovascular: Regular rate and rhythm Abdomen: Less tender, but still distended, cannot appreciate hepatosplenomegaly. Moderate amount of ascites. Positive bowel sounds. No overt guarding in spite of tenderness. Extremities: No cyanosis/clubbing. Improving edema bilaterally, ~+1 at time of discharge. Neurological: Grossly Neurologically Intact, Cranial Nerves 2-12 Intact Test 01/19/17 23:10 01/19/17 23:15 01/20/17 00:35 01/20/17 15:10 Hold Purple Top Tube Received (Received) Hold Blue Top Tube Received (Received) Hold [place] Top Tube Received (Received) Hold [place] Top Tube Received (Received) Prothrombin Time 15.4sec (8.1-12.5) Prothromb Time International Ratio 1.43ratio Lipase 3U/L (13-60) Alcohols 223mg/dL (0-10) Urine Color Yellow (YELLOW) Urine Appearance Clear (CLEAR,HAZY) Urine pH 6.5 (5.0-8.0) Urine Specific [place] 1.003 (1.003-1.035) Urine Protein Negativemg/dL (NEG,TRACE) Urine Glucose (UA) Negativemg/dL (NEGATIVE) Urine Ketones Negativemg/dL (NEGATIVE) Urine Occult Blood Negative (NEGATIVE) Urine Nitrite Negative (NEGATIVE) Urine Bilirubin Negative (NEGATIVE) Urine Urobilinogen Normalmg/dL (NORMAL) Urine Leukocyte Esterase Negative (NEGATIVE) Urine RBC 0-2/hpf (0-2) Urine WBC 0-5/hpf (0-5) Urine Epithelial Cells Occasional/hpf (NONE-MOD) Urine Crystals None seen (NONE SEEN) Urine Bacteria None/hpf (NONE-FEW) Urine Hyaline Casts None/lpf (NONE) Urine Granular Casts None seen (NONE SEEN) Urine Waxy Casts None seen (NONE SEEN) Urine Red Blood Cell Casts None seen (NONE SEEN) Urine White Blood Cell Casts None seen (NONE SEEN) Urine Mucus None seen (None Seen) Urine Trichomonas None seen (NONE SEEN) Urine Yeast None (NONE SEEN) Urine Culture Reflexed Not indicated Total Bilirubin 0.8mg/dL (0.0-1.2) Aspartate Amino Transf (AST/SGOT) 66U/L (0-50) Alanine Aminotransferase (ALT/SGPT) 22U/L (0-44) Alkaline Phosphatase 170U/L (25-160) Total Protein 4.8g/dL (6.4-8.4) Albumin 2.4g/dL (3.4-5.0) Phenytoin (Dilantin) Level 5.3uG/mL (10.0-20.0) Test 01/21/17 05:00 01/21/17 12:51 01/22/17 05:00 01/22/17 05:35 Phosphorus Level 2.9mg/dL (2.5-4.9) Magnesium Level 1.3mg/dL (1.6-2.6) Vitamin B12 Level 1252pg/mL (211-946) Folate 7.0ng/mL (>3.0) Lactic Acid Level 2.0mmol/L (0.4-2.0) White Blood Count 9.2th/mm3 (3.8-10.1) Red Blood Count 3.14mil/mm3 (4.40-5.80) Hemoglobin 9.4g/dL (13.8-17.2) Hematocrit 28.8% (41.0-50.0) Mean Corpuscular Volume 91.7fL (81-100) Mean Corpuscular Hemoglobin 29.9pg (27.0-35.0) Mean Corpuscular Hemoglobin Concent 32.6% (32.0-37.0) Red Cell Distribution Width 19.0% (12.3-15.4) Platelet Count 126bil/L (150-400) Neutrophils (%) (Auto) 67.3% (40-74) Lymphocytes (%) (Auto) 22.0% (14-46) Monocytes (%) (Auto) 8.3% (4-12) Eosinophils (%) (Auto) 1.7% (0-5) Basophils (%) (Auto) 0.6% (0-3) Test 01/22/17 15:29 01/23/17 05:23 Sodium Level 138mEq/L (134-144) Potassium Level 3.6mEq/L (3.5-5.2) Chloride Level 103mEq/L (97-108) Carbon Dioxide Level 24mmol/L (18-29) Blood Urea Nitrogen 5mg/dL (8-27) Creatinine 0.48mg/dL (0.76-1.27) Estimat Glomerular Filtration Rate 183mL/min (>59) Glucose Level 81mg/dL (60-99) Calcium Level 7.1mg/dL (8.5-10.1) Discharge Medications Discharge Medications ([Pancrelipase]) 5000 UNIT CAPSULE 5,000 UNIT PO TIDWM Prescribed by: CORNELL MONTE DO Diltiazem ER (Cardizem CD) 180 Mg Cap.er.24h 180 MG PO DAILY Prescribed by: TONNY CURRY MD Famotidine (Pepcid) 20 Mg Tablet 20 MG PO BID Prescribed by: DIANA MONTEMAYOR MD Multivitamin (Once Daily) 1 Each Tablet 1 EACH PO DAILY Prescribed by: TONNY CURRY MD Nicotine 14 mg/24 hr Patch (Nicotine 14 mg/24 hr Patch) 1 Each Patch.td24 1 PATCH TRANSDERM DAILY (Reported) Phenytoin Sodium ER (Dilantin) 100 Mg Capsule 100 MG PO BID Prescribed by: CORNELL MONTE DO Sucralfate (Sucralfate) 1 Gm/10 Ml Oral.susp 1,000 MG PO TIDAC Prescribed by: CORNELL MONTE DO As needed Albuterol HFA (Proair HFA) 8.5 Gm Hfa.aer.ad 2 PUFFS INHALATION Q4H PRN PRN For Shortness of Breath Prescribed by: CORNELL MONTE DO Magnesium Hydroxide (Milk of Magnesia) 400 Mg/5 Ml Oral.susp 400 MG PO DAILY PRN PRN For Constipation (Reported) Ondansetron ODT (Zofran ODT) 4 Mg Tablet 4 MG PO Q4H PRN PRN For Nausea Prescribed by: KEITH HAQ Oxycodone HCl/Acetaminophen 5-325 (Endocet 5-325) 1 Each Tablet 1 TABLET PO TID PRN PRN For Pain Prescribed by: CORNELL MONTE DO Followup Plan Disposition: Discharged home with Please resume home health services. Discharge Diet: Heart Healthy, Diabetic Discharge Activity: No restrictions Follow-up with PCP in: 1 week Time spent 45 minutes copies to: [facility] Cornell Monte DO Jan 23, 2017 10:59
[2017-01-23] MEDS ORDERED: Pancrelipase PO (11:07)
[2017-01-23] MEDS ORDERED: OXYC-407 PO (11:07)
[2017-01-23] MEDS ORDERED: SUCR1ORA PO (11:07)
--- NOTE | 2017-01-23 11:10 | PCM.DIMED ---
Discharge Instructions Date of Service Jan 23, 2017 Dates of Hospitalization Jan 20, 2017 at 11:54 Discharge Diagnosis Discharge Diagnosis Abdominal pain, improved Ascites, secondary to chronic liver disease. Stable Sepsis, resolved no evidence of acute infection Diet Discharge Diet: Heart Healthy, Diabetic Activity Discharge Activity: No restrictions Patient Instructions Patient Instructions Continue medications as prescribed - Oxycodone previously utilized her pain has been refilled - Pancreatic lipase will be used given concern for chronic pancreatitis, this medication helps assist pancreas and creation of certain enzymes which opened digestion - Sucralfate has also been prescribed to help coat lower esophagus and stomach lining, which appeared irritated based on endoscopy. Follow-up with primary care physician for further discussion regarding these medications and plan for continued use. Follow-up plan Follow-up with primary care physician within 1 week of discharge Follow-up with gastroenterology in 2-3 weeks for further evaluation of esophagitis and gastritis, and saturation of chronic pancreatitis, and discussion of elective colonoscopy for further evaluation of colonic thickening noted during your admission to the hospital Follow-up Provider: [facility] Follow-up with PCP in: 1 week Cornell Monte DO Jan 23, 2017 11:10
--- NOTE | 2017-01-23 11:58 | PCM.PNMED ---
Subjective Date of Service Jan 23, 2017 Subjective Pt saids abd pain is much better but he has had diarrhea for the first time today. Exam Vital Signs Vital Sign - Last Date Time Temp Pulse Resp B/P Pulse Ox O2 Delivery O2 Flow Rate FiO2 01/23/17 10:33 78 01/23/17 06:12 36.6 20 118/71 95 Room Air Intake and Output 01/22/17 01/22/17 01/23/17 Cumulative From/Thru 15:00 23:00 07:00 01/19/17 22:10 - 01/23/17 06:32 Intake Total 2110 ml 490 ml 73979 ml Output Total 875 ml 875 ml 3125 ml Balance 1235 ml -385 ml 6938 ml Intake Oral 1220 ml 490 ml 3330 ml IV Total 890 ml 0 ml 6733 ml Output Urine Total 875 ml 875 ml 3125 ml # Bowel Movements 4 Exam Patient is alert and oriented comfortable Head and neck no icterus Lungs clear Cardia Vascular regular rate and rhythm, normal S1 and S2 Abdomen soft mildly distended mild epigastric tenderness without guarding rebound or firmness which is better than yesterday nondistended with normoactive bowel sounds. When I placed my stethoscope and placed it on his abdomen and push, he appeared to be comfortable. Extrinsic no pitting edema ankles Lab and Diagnostics Result Diagram: 01/22/17 0500 01/23/17 0523 X-Rays, CTs and MRIs Date of Service: 01/20/17 004 PROCEDURE: CT ABDOMEN AND PELVIS WITH CONTRAST ([id number]) INDICATIONS: abd pain, elev WBC and lactic acid IMPRESSION: Poorly-defined proximal ascending colon wall thickening suggestive of nonspecific colitis (infectious, inflammatory or ischemic). Please correlate clinically. As clinically warranted, followup with endoscopy to exclude superimposed colonic mass lesion could be performed after the patient's acute episode has resolved. Ventral abdominal wall hernia containing a loop of bowel however no definite small bowel destruction. Normal-appearing appendix. Moderate ascites. Hepatic steatosis, with incidentally noted pneumobilia. (Unchanged when compared with study from 2 years prior) Small bilateral pleural effusions, left greater than right with adjacent atelectasis. Dictated by: Brayan Vazquez M.D. on 01/20/2017 at 9:21 Assessment & Plan This is a gentleman who has history of chronic pancreatitis status post Whipple and comes in with abdominal pain. He also has underlying cirrhosis. I recommended EGD and colonoscopy however he did not want to take his prep and did not want to proceed with his colonoscopy. Yesterday prior to the upper endoscopy, I asked him again to proceed with a colonoscopy he did not want to proceed with colonoscopy despite the CT finding. EGD was done which shows significant inflammation of the stomach with significant amount of bilious material covering the stomach. An anastomosis site and the bowel loops normal. 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 Carafate was started. Abdominal pain is a lot better today. Abdominal pain could be combination of gastritis on top of possible acute on chronic Pancreatitis. He was also given pancrelipase. Again abdominal pain is a lot better. The only issue at this point is has diarrhea 1 today. Recommendations 1. fecal elastase level? He needs to stop smoking and drinking alcohol. He needs to eat small meals with significant hydration. Also, would try to have him eat smaller meals with lots of hydration. He definitely needs to stop using alcohol. His abdominal pain is a lot better. Therefore acute on chronic pancreatitis is now less likely. 2. He has a history of underlying cirrhosis. alpha fetoprotein level pending and CT scan with contrast was done. This did not show any evidence of liver lesion. Again, he needs to stop drinking alcohol. He does have ascites and aware that Radiology does no think this is tap-able. If the ascites palpable, ascites should be analyzed for C BC with differential total protein and albumin. 3. CT showing possible thickened bowel wall, i.e. colitis, and he said his last colonoscopy was many years ago. Patient declined colonoscopy. If diarrhea persists, please reconsult. If that that is the case, if he is agreeable, we will proceed with the colonoscopy. Right now he wants to do the colonoscopy as an outpatient. 4. Finally, transaminases are elevated. Will follow. This could be due to alcohol. Alkaline phosphatase is elevated. Would obtain GGT. 5. If diarrhea persists, please reconsult. 6. Will sign off since his abdominal pain is significantly better. Encourage increased by mouth intake. Follow up as an outpatient within 2 weeks of discharge. GI Prophylaxis: Proton Pump Inhibitor VTE Mechanical Devices: Intermittant Pneumatic CD Resuscitation Status: CPR: Attempt Resuscitation Eugene Stockton MD Jan 23, 2017 11:58 - We will continue to monitor patient's condition in addition to blood cultures are positive for gram-positive cocci species still pending and urine culture negative for growth over 24 hours. - He was continued on ceftriaxone , which is started in place of Zosyn initiated in the ER given renal issues, due to concern for SBP or other occult infection however with negative MRSA screen and otherwise stable patient this was all discontinued with the agreement of infectious disease specialist. - We continue to appreciate consultation by gastroenterology, who consider a number of possibilities including chemical gastritis which will currently treat with Carafate, in addition to possible chronic pancreatitis for which serum and stool studies are ordered and pending. - Colonoscopy will be deferred to outpatient setting unless patient's condition acutely decompensates. - Patient was subsequently transitioned to oral pain medications, and closely observed. He remained medically stable with pain improved to only oral medications overnight. - He was discharged in stable condition on the short course of oxycodone plan to follow-up with primary care physician within one week. #Chronic pancreatitis - A possible diagnosis suggest by gastroenterologists as a cause for abdominal pain - Fecal fat/lipase was ordered but pending at time of discharge, this patient being status post Whipple's procedure may have a normal to depressed lipase level and still may be suffering from a chronic pancreatic inflammatory process. - Patient was prescribed pancreatic lipase in the hospital and given improving pain in her abdomen this was continued on discharge #Esophagitis / gastritis - As noted above this was diagnosed with upper endoscopy - Aspirin draws he has prescribed Carafate which will be continued on discharge - Continue alcohol cessation was not covered which will aid in recovery. #Sepsis - Elevated white blood cell count, elevated pulse with severe abdominal pain ascites, in addition to elevated lactic acid level. - Initially Treatment with ceftriaxone therapy for presumed SBP, continued IV hydration with intravenous fluids. - Patient began to demonstrate evidence of volume overload including edema of lower, and hemodilution evidenced on lab studies prior to discontinuation of fluids, and a trial diuresis given amount of weight gain. - Infectious disease consult was appreciated, did not note source or evidence of acute infection and of such discontinued antibiotic therapy as noted above. - Patient is no longer any septic criteria is hemodynamically stable with a normal white count and afebrile. - Medical stable time of discharge #. Alcohol dependence - [facility] protocol initiated - NO evidence of acute withdrawal evident on admission to hospital. - The importance to continue cessation in the setting of gastric ,liver and pancreatic disease was discussed on multiple occasions, by myself and specialist Dr. Stockton. #Hypernatremia - May be iatrogenic, initially transitioned to point for 45% normal saline now discontinued off intravenous fluids altogether. - Resolves following discontinuation of fluids stable at time of discharge. #Anemia - This has proved progressive. - Folate was noted to be normal and B12 levels are elevated, in addition MCV was within normal limits. - We will continue to monitor, do believe there is a delusional component to this given amount of weight gain over past few days and pancytopenia, will observe her discontinuation of fluids and diuresis with Lasix. -Upper endoscopy did not demonstrate evidence of significant bleed, and as noted above colonoscopy will be deferred outpatient setting given no evidence of acute pathology at this time. - Patient was continued on Carafate given gastritis. #. Epilepsy - We will continue all medications at this time - Dilantin levels ordered, and not excessively elevated. #. Transaminitis/ascites - Patient certainly appears to have some baseline liver dysfunction due to extensive history of alcohol dependence described above. - He does however note is only been drinking over the last couple days and a benign remission for greater than a month, only restarting due to severe abdominal pains. Based on this series is abdominal pain must be caused by another process given the pain preceded his most recent alcohol use. - Lasix was suggested to aid in the removal of peritoneal fluid however patient declines medications saying it made him feel unwell. - Alpha-fetoprotein was also ordered for screening study for possible hepatocellular carcinoma, but pending at time of discharge. Should also be noted there was no radiologic evidence for hepatocellular carcinoma noted with CT scan. #. Tobacco dependence - Patient smokes 1 pack per day is requesting nicotine patch for withdrawal symptoms/cravings - Benefits of continued cessation was discussed GI Prophylaxis: Proton Pump Inhibitor VTE Mechanical Devices: Intermittant Pneumatic CD Resuscitation Status: CPR: Attempt Resuscitation Eugene Stockton MD Jan 23, 2017 11:58
--- NOTE | 2017-01-23 12:15 | NUR ---
Social Work-readiness for discharge: Data:EMR Reviewed. Pt is on day 3 of hospitalization for sepsis per H&P. Pt is likely ready later today or tomorrow. Pt resides at home with his family. Pt is open with [facility] for RN and PT, SW received MD order and SW informed [facility] of admission. Pt's family to provide transport home at discharge. SW will continue to follow. Assessment:Pt who would benefit from resume HH. Plan:Pt to discharge home when medically stable via POV. Pt will resume [facility] RN and Pt at discharge. SW will continue to follow. ONEL Schwartz
--- NOTE | 2017-01-23 12:23 | NUR ---
Social Work- discharge: Data:EMR Reviewed. Pt is on day 3 of hospitalization for sepsis per H&P. Pt is medically stable for discharge. Pt resides at home with his family. BONTIA updated [facility] of pt discharging home today and resume HH orders for RN and PT have been provided. Pt has history of ETOH, MD has not placed CD consult request for SW. Pt's family to provide transport home. No discharge needs identified. All updated and agreeable to plan. Assessment:Pt who would benefit from resume HH. Plan:Pt to discharge home today medically stable via POV. [facility] aware of the discharge and provided with Resume HH orders for RN and PT. All updated and agreeable to plan. ONEL Schwartz
[2017-01-23 12:57] VITALS: BP 120/83; PULSE 87; RESP 20; O2SAT 95
[2017-01-23] MEDS ORDERED: ONDA4TAB9 PO (13:12)
--- NOTE | 2017-01-23 13:56 | NUR ---
Discharge Pt discharged home with partner via private vehicle. Pt verbalized understanding of discharge, new Rx and follow up instructions. Pt is A/O x 3, all personal belongings accounted for and left with pt.
[2017-01-24] MEDS ORDERED: Lactated Ringer's 1,000 ML IV ONE (06:00)
--- NOTE | 2017-01-26 14:54 | PATH ---
SURGICAL PATHOLOGY Attending Physician:Eugene Stockton M.D. CASE STATUS: Signed Out PATIENT NAME: NAT HOLLOWAY PID: [id number] : 1945 DATE COLLECTED:01/21/2017 00:00 SPECIMEN: Gastric, Biopsy CLINICAL HISTORY: 1). GASTRIC BIOPSIES FINAL DIAGNOSIS: Gastric Biopsies: Portions of gastric antral mucosa with mild chronic gastritis. Negative for H. pylori organisms by H&E stain. Immunohistochemistry studies pending; results will be reported as an addendum. Negative for intestinal metaplasia, dysplasia or malignancy. ICD10: K29.7 GROSS DESCRIPTION: The specimen is received in one formalin filled container labeled with the patient's name, sublabeled "gastric" and consists of friable 2 portions of tissue which aggregate to 0.2 x 0.2 x 0.2 CM. The specimen is entirely submitted in one cassette. 01/22/2017 [facility] ICD-9 CODES: CPT CODES: 1: 22130, 32780 PROCEDURE/ADDENDA: Immunohistochemistry SPI Interpretation {Not Entered} Results-Comments An immunostain for Helicobacter organisms is negative. The diagnosis is unchanged. This test was developed and its performance characteristics determined by [facility]. It has not been cleared or approved by the [place]. [place]. Food and Drug Administration. The FDA has determined that such clearance or approval is not necessary. This test is used for clinical purposes. It should not be regarded as investigational or for research. Electronically Signed Out Favian Ashford MD Electronically Signed Out Brittany Swanson MD [facility] [address], [place] [address] Technical component performed at [facility], [facility] [address], [place], [address]
== END 2017-01-23 14:00 | disposition home health service (06) | DRG 392 ==
LOC: EDBD 22:06 → SED 22:06 → MPC 01-20 11:54
PROVIDERS: ADMIT Family Medicine; ATTEND Family Medicine
PROC: 02HV33Z Insertion of Infusion Device into Superior Vena Cava, Percutaneous Approach (ICD-10-PCS; 2017-01-20)
PROC: 0DB68ZX Excision of Stomach, Via Natural or Artificial Opening Endoscopic, Diagnostic (ICD-10-PCS; principal; 2017-01-21 13:15)
DX: K29.70 Gastritis, unspecified, without bleeding (principal); E87.2 Acidosis; R18.8 Other ascites; E87.0 Hyperosmolality and hypernatremia; K86.0 Alcohol-induced chronic pancreatitis; R64 Cachexia; K31.9 Disease of stomach and duodenum, unspecified; F10.229 Alcohol dependence with intoxication, unspecified; K70.9 Alcoholic liver disease, unspecified; Y90.1 Blood alcohol level of 20-39 mg/100 ml; J44.9 Chronic obstructive pulmonary disease, unspecified; F17.210 Nicotine dependence, cigarettes, uncomplicated; Z68.24 Body mass index [BMI] 24.0-24.9, adult; K21.9 Gastro-esophageal reflux disease without esophagitis; G89.29 Other chronic pain; I48.91 Unspecified atrial fibrillation; E87.6 Hypokalemia; E83.42 Hypomagnesemia; G40.909 Epilepsy, unspecified, not intractable, without status epilepticus; E86.0 Dehydration; Z79.82 Long term (current) use of aspirin; Z79.01 Long term (current) use of anticoagulants; Z79.51 Long term (current) use of inhaled steroids